=== PATIENT | female | born 1960 | race African-American/Black ===

== ENCOUNTER 2016-08-14 11:01 | Emergency (ER) | payer OTHER ==
[2016-08-14 11:10] VITALS: TEMP 99.1; BMI 38.0
--- NOTE | 2016-08-14 11:20 | PDOC ---
History of Present Illness - General Chief Complaint: Nausea/Vomiting Stated Complaint: VOMITING, COUGH Time Seen by Provider: 08/14/16 11:19 History Source: Patient Exam Limitations: No Limitations - History of Present Illness Initial Comments: 08/14/16 11:19 CHIEF COMPLAINT: Vomiting HISTORY OF PRESENT ILLNESS: This is a 55-year-old female with a history of hypertension, hyperlipidemia, cigarette smoking, and tonsillectomy who presents to the ED complaining of abdominal pain and nausea/vomiting/diarrhea. The patient was seen here on 08/08 for abdominal pain diarrhea and was empirically started on ciprofloxacin and Flagyl. She then returned on 08/09 with vomiting and continued diarrhea. CTAP at that time showed thickening of a short segment in the transverse colon as well as thickening of the proximal and mid sigmoid colon holcomb. Patient was continued on Cipro/Flagyl and referred to GI. She returns today with cough productive of white sputum, chills, and continued vomiting. She reports her abdominal pain has improved and her diarrhea has resolved. She saw her PCP yesterday and he was concerned for PNA. Vital signs on arrival are notable for pulse of 94. PCP is Dr. Bloom. REVIEW OF SYSTEMS: GENERAL/CONSTITUTIONAL: Chills, no fever. No weakness. No weight change. HEAD, EYES, EARS, NOSE AND THROAT: No change in vision. No ear pain or discharge. No sore throat. CARDIOVASCULAR: No chest pain or palpitations. RESPIRATORY: Cough productive of white sputum. No shortness of breath. GASTROINTESTINAL: Vomiting; unable to keep down water. No diarrhea or constipation. GENITOURINARY: No dysuria, frequency, or change in urination. MUSCULOSKELETAL: No joint or muscle swelling or pain. No neck or back pain. SKIN: No rash or easy bruising. NEUROLOGIC: No headache, vertigo, loss of consciousness, or loss of sensation. PSYCHIATRIC: No depression or anxiety. ENDOCRINE: No increased thirst. No abnormal weight change. HEMATOLOGIC/LYMPHATIC: No anemia, easy bleeding, or history of blood clots. ALLERGIC/IMMUNOLOGIC: History of clarithromycin allergy. PHYSICAL EXAM: GENERAL: The patient is awake, alert, and fully oriented, in no acute distress. ENT: Pupils equal, round and reactive to light, extraocular movements intact, sclera anicteric, conjunctiva clear. Neck supple. LUNGS: End-expiratory wheezing. Normal excursion. No respiratory distress or use of accessory muscles. Paroxysmal cough. CV: RRR, S1/S2, no MRG. Cap refill < 2 sec. ABDOMEN: Soft, non-distended, mild LLQ tenderness to deep palpation. EXTREMITIES: Normal range of motion, no edema. NEUROLOGICAL: Normal speech, normal gait. CN II-XII grossly intact. PSYCH: Normal mood, normal affect. SKIN: Warm, dry, normal turgor, no rashes or lesions noted. Past History - Past Medical History Allergies/Adverse Reactions: Allergies Allergy/AdvReac Type Severity Reaction Status Date / Time clarithromycin [From Biaxin] Allergy Verified 08/14/16 11:10 Home Medications: Ambulatory Orders Pravastatin Sodium [Pravachol -] 40 mg PO DAILY 07/12/15 Amlodipine Besylate [Norvasc -] 10 mg PO DAILY #30 tablet 10/16/15 Losartan/Hydrochlorothiazide [Hyzaar 100-25 Tablet] 1 each PO DAILY #30 tablet 10/16/15 Ciprofloxacin [Cipro (Restricted To Id)] 500 mg PO Q12H #14 tablet 08/08/16 Metronidazole [Flagyl -] 500 mg PO TID #21 tablet 08/08/16 Albuterol Sulfate Inhaler - [Ventolin HFA Inhaler -] 1 - 2 inh PO QID #1 inhaler 08/14/16 Promethazine/Phenyleph/Codeine [Phenergan VC+Codeine Syrup] 5 ml PO QID PRN # 118 ml MDD 20 mls 08/14/16 HTN: Yes Hypercholesterolemia: Yes - Psycho/Social/Smoking Cessation Hx Anxiety: Yes Suicidal Ideation: No Smoking History: Current every day smoker Have you smoked in the past 12 months: Yes Number of Cigarettes Smoked Daily: 10 Information on smoking cessation initiated: No 'Breaking Loose' booklet given: 07/12/15 Hx Alcohol Use: No Drug/Substance Use Hx: No Substance Use Type: None *Physical Exam - Vital Signs Last Vital Signs Temp Pulse Resp BP Pulse Ox 99.1 F 94 H 18 138/80 99 08/14/16 11:07 08/14/16 11:07 08/14/16 11:07 08/14/16 11:07 08/14/16 11:07 ED Treatment Course - LABORATORY CBC & Chemistry Diagram: 08/14/16 11:25 08/14/16 11:25 Medical Decision Making - Medical Decision Making 08/14/16 11:39 A/P: 55 year old female, on last day of abx for colitis, presenting with productive cough, chills, and wheezing, as well as vomiting with inability to tolerate oral fluids. 1. EKG 2. Cardiac labs 3. CXR to rule out infiltrate 4. DuoNeb for wheezing 5. Zofran 4mg IVP for nausea 6. IVF 7. Re-assess 08/14/16 14:00 Patient re-evaluated and is feeling much better. CXR negative for infiltrate. Coughing and wheezing have resolved after DuoNeb. Hypokalemia noted and repleted. Patient is tolerating PO. Will dc with albuterol MDI and cough syrup. Patient plans to follow up with her PCP. Return precautions reviewed. *DC/Admit/Observation/Transfer Diagnosis at time of Disposition: Cough Vomiting Qualifiers: Vomiting type: unspecified Vomiting Intractability: non-intractable Nausea presence: with nausea Qualified Code(s): R11.2 - Nausea with vomiting, unspecified - Discharge Dispostion Disposition: HOME Admit: No - Prescriptions Prescriptions: Promethazine/Phenyleph/Codeine [Phenergan VC+Codeine Syrup] 5 ml PO QID PRN # 118 ml MDD 20 mls PRN Reason: Cough Albuterol Sulfate Inhaler - [Ventolin HFA Inhaler -] 1 - 2 inh PO QID #1 inhaler - Referrals Referrals: Shannan Bloom [Primary Care Provider] - 2 Days - Patient Instructions Printed Discharge Instructions: DI for Vomiting -- Adult, DI for Cough -- Adult Additional Instructions: -Rest and stay well-hydrated -Use the albuterol inhaler and cough syrup as prescribed -Follow up with Dr. Bloom within 2 days -Return here for any concerning symptoms, especially shortness of breath or inability to keep down fluids
[2016-08-14] MEDS ORDERED: SODIUM CHLORIDE 1,000 ML IV STA (11:23)
[2016-08-14] MEDS ORDERED: ONDANSETRON 4 MG/2 ML VIAL IVPUSH ONE (11:23)
[2016-08-14] MEDS ORDERED: ALBUTEROL SO4 2.5/IPRATROPIUM 0.5 INH SOL 3 ML VIAL.NEB. NEB ONE ×2 (11:33→11:47)
[2016-08-14] MEDS ORDERED: ONDANSETRON 4 MG/2 ML VIAL ONE (11:38)
[2016-08-14 11:44] LABS: BASOPHIL 0.5 % (0-2.0); EOSINOPHIL 0.4 % (0-4.5); MCH 31.1 pg (25.7-33.7); MCHC 33.9 g/dl (32.0-36.0); MEAN CELL VOLUME 91.8 fl (80-96); MEAN PLT VOLUME 9.1 fl (7.5-11.1); NEUTROPHILS 64.2 % (42.8-82.8); PLATELET COUNT 187 K/MM3 (134-434); RDW 13.3 % (11.6-15.6); WHITE BLOOD COUNT 7.8 K/mm3 (4.0-10.0)
[2016-08-14 11:56] LABS: INR 1.3 (0.82-1.09); PROTHROMBIN TIME (PATIENT) 14.4 SEC (9.98-11.88)
[2016-08-14 12:05] LABS: ALBUMIN 3.8 g/dl (3.4-5.0); ANION GAP 10 (8-16); BILIRUBIN,TOTAL 0.8 mg/dL (0.2-1.0); CALCIUM 8.5 mg/dL (8.5-10.1); CO2 28 mmol/L (21-32); GLUCOSE,RANDOM 153 mg/dL (74-106); MAGNESIUM 1.8 mg/dL (1.8-2.4); SGOT/AST 26 U/L (15-37); SGPT/ALT 30 U/L (12-78); TOT PROT 7.4 g/dl (6.4-8.2)
[2016-08-14 12:08] LABS: ALK PHOS 37 U/L (45-117); TROPONIN I < 0.02 ng/ml (0.00-0.05)
[2016-08-14 12:27] LABS: URINE APPEARANCE CLEAR; URINE BILIRUBIN NEGATIVE (NEGATIVE); URINE BLOOD NEGATIVE (NEGATIVE); URINE COLOR DKYELLOW; URINE GLUCOSE (UA) NEGATIVE (NEGATIVE); URINE KETONE NEGATIVE (NEGATIVE); URINE NITRITE NEGATIVE (NEGATIVE); URINE PROTEIN NEGATIVE (NEGATIVE); URINE UROBILINOGEN NEGATIVE E.U./dl (0.2-1.0)
[2016-08-14 12:29] LABS: URINE LEUK ESTERASE 1+ (NEGATIVE)
[2016-08-14 12:31] LABS: URINE BACTERIA RARE /hpf (NONE SEEN); URINE HYALINE CAST 4 /lpf; URINE MUCUS RARE; URINE RBC 1 /hpf (0-3); URINE WBC 4 /hpf (3-5)
[2016-08-14] MEDS ORDERED: SODIUM CHLORIDE 1,000 ML with POTASSIUM CHLORIDE 40 MEQ IVPB SCH (13:45)
[2016-08-14] MEDS ORDERED: POTASSIUM CHLORIDE TABS 20 MEQ TABLET.ER (FP) PO ONE ×2 (13:57→13:59)
[2016-08-14] MEDS ORDERED: guaiFENesin/CODEINE 10 ML UNIT-DOSE CUPS PO ONE (14:12)
[2016-08-14 14:14] VITALS: BP 141/81; PULSE 90
[2016-08-14] MEDS ORDERED: guaiFENesin/CODEINE 5 ML UNIT-DOSE CUPS PO ONE (14:14)
--- NOTE | 2016-08-14 23:22 | EKG ---
Test Reason : Blood Pressure : / mmHG Vent. Rate : 084 BPM Atrial Rate : 084 BPM P-R Int : 128 ms QRS Dur : 088 ms QT Int : 366 ms P-R-T Axes : 070 032 027 degrees QTc Int : 432 ms NORMAL SINUS RHYTHM NORMAL ECG WHEN COMPARED WITH ECG OF 09-AUG-2016 23:14, NO SIGNIFICANT CHANGE WAS FOUND Confirmed by HARI DAI MD ([id number]) on 08/14/2016 11:21:40 PM Referred By: Confirmed By:HARI DAI MD
== END 2016-08-14 14:14 | disposition home or self-care (01) ==
LOC: JER 11:01
PROC: 3E0F7GC Introduction of Other Therapeutic Substance into Respiratory Tract, Via Natural or Artificial Opening (ICD-10-PCS; principal; 2016-08-14)
PROC: 3E0337Z Introduction of Electrolytic and Water Balance Substance into Peripheral Vein, Percutaneous Approach (ICD-10-PCS; 2016-08-14)
PROC: 3E033GC Introduction of Other Therapeutic Substance into Peripheral Vein, Percutaneous Approach (ICD-10-PCS; 2016-08-14)
DX: R05 Cough (principal); I10 Essential (primary) hypertension; E78.00 Pure hypercholesterolemia, unspecified; F17.210 Nicotine dependence, cigarettes, uncomplicated
CPT/HCPCS: 36415; 71020-TC; 80053; 81003; 81015; 82550; 82553; 83735; 84484; 85025; 85610; 87040; 93005; 93010; 99284-25

== ENCOUNTER 2017-06-11 14:27 | Emergency (ER) | payer OTHER ==
[2017-06-11 14:33] VITALS: TEMP 98.6; BMI 38.0
--- NOTE | 2017-06-11 14:47 | PDOC ---
Attending Attestation - HPI HPI: 06/11/17 15:50 The patient is a 56 year old female with past medical history of hypertension, hyperlipidemia, chronic bronchitis and asthma who presents to the ED after an episode of near syncope today. The patient denies any LOC, focal weakness, or headache. She reports that she has been feeling very dehydrated the past few days and has been drinking lots of water, and subsequently has been urinating more frequently. She also complains of productive cough and nasal congestion for the past week and has been coughing up white mucous. The patient denies any fever or chills. She denies nausea, vomiting, diarrhea, SOB, dysuria or hematuria. The patient is a smoker and smokes 10 cigarettes/day - Medical Decision Making 06/11/17 15:57 Documentation prepared by Vianney Vines, acting as medical doctor nuclear medicine for Evelyne Carvajal MD. <Vianney Vines - Last Filed: 06/11/17 16:55> - Resident Resident Name: Hoa Garibay - ED Attending Attestation I have performed the following: I have examined & evaluated the patient, The case was reviewed & discussed with the resident, I agree w/resident's findings & plan, Exceptions are as noted - Physicial Exam PE: GENERAL: Awake, alert, and fully oriented, in no acute distress HEAD: No signs of trauma EYES: PERRLA, EOMI, sclera anicteric, conjunctiva clear ENT: Auricles normal inspection, hearing grossly normal, nares patent, oropharynx clear without exudates. Dry mucosa NECK: Normal ROM, supple, no lymphadenopathy, JVD, or masses LUNGS: Breath sounds equal, clear to auscultation bilaterally. No wheezes, and no crackles HEART: Regular rate and rhythm, normal S1 and S2, no murmurs, rubs or gallops ABDOMEN: Soft, nontender, normoactive bowel sounds. No guarding, no rebound. No masses EXTREMITIES: Normal range of motion, no edema. No clubbing or cyanosis. No cords, erythema, or tenderness NEUROLOGICAL: Cranial nerves II through XII grossly intact. Normal speech, normal gait SKIN: Warm, Dry, normal turgor, no rashes or lesions noted. - Medical Decision Making Pt improved with Iv hydration. No acute findings on labs. Stable for DC home. <Evelyne Carvajal - Last Filed: 06/14/17 08:34>
--- NOTE | 2017-06-11 15:33 | PDOC ---
History of Present Illness - General Chief Complaint: Lightheaded Stated Complaint: COUGH/WEAK Time Seen by Provider: 06/11/17 14:40 History Source: Patient - History of Present Illness Initial Comments: 06/11/17 15:26 Patient is a 56 yo F smoker, with PMHx of Htn, HLD, asthma, bronchitis, presented today because of lightheadedness that started this morning and has been constant. She states she experienced the same feeling last year and was admitted because of low sodium. She also says that she has been feeling dehydrated and dry with an increase in urinary frequency that started around the same time as the lightheadedness. She urinated 5 times today. She takes HCTZ 25mg for her HTN and has not had a recent change in her BP meds. She said this week she has had bronchitis and has had a persistent cough with white sputum production. She denies fever, head trauma, vertigo, nausea, vomiting, SOB , chest pain, and diarrhea. Past History - Past Medical History Allergies/Adverse Reactions: Allergies Allergy/AdvReac Type Severity Reaction Status Date / Time clarithromycin [From Biaxin] Allergy Verified 06/11/17 14:33 Home Medications: Ambulatory Orders Pravastatin Sodium [Pravachol -] 40 mg PO DAILY 07/12/15 Amlodipine Besylate [Norvasc -] 10 mg PO DAILY #30 tablet 10/16/15 Losartan/Hydrochlorothiazide [Hyzaar 100-25 Tablet] 1 each PO DAILY #30 tablet 10/16/15 Albuterol Sulfate Inhaler - [Ventolin HFA Inhaler -] 1 - 2 inh PO QID #1 inhaler 08/14/16 Azithromycin [Zithromax Tri-Kavon (3 DAYS) -] 500 mg PO DAILY 06/11/17 Guaifenesin AC [Robitussin AC] 5 ml PO Q6H PRN #60 ml MDD 20 mL 06/11/17 COPD: No HTN: Yes Hypercholesterolemia: Yes - Suicide/Smoking/Psychosocial Hx Smoking History: Current every day smoker Have you smoked in the past 12 months: Yes Number of Cigarettes Smoked Daily: 10 Information on smoking cessation initiated: No 'Breaking Loose' booklet given: 07/12/15 Hx Alcohol Use: No Drug/Substance Use Hx: No Substance Use Type: None Review of Systems - Review of Systems Constitutional: Yes: Chills. No: Diaphoresis, Fever Respiratory: Yes: Productive cough. No: Orthopnea Cardiac (ROS): Yes: Lightheadedness. No: Chest Pain, Palpitations, Syncope ABD/GI: No: Diarrhea, Nausea, Vomiting : Yes: Frequency. No: Burning, Dysuria Neurological: Yes: Tremors, Weakness. No: Headache, Numbness, Seizure, Dizziness *Physical Exam - Vital Signs Last Vital Signs Temp Pulse Resp BP Pulse Ox 98.6 F 97 H 20 155/84 95 06/11/17 14:30 06/11/17 14:30 06/11/17 14:30 06/11/17 14:30 06/11/17 14:30 - Physical Exam Comments: 06/11/17 15:39 General: In no acute distress, coughing w/ white sputum production, slightly tremulous HEENT: EOMI, PERRL, oropharyanx clear without exudates, pale conjunctiva, dry mucous membranes Neck: supple CV: RRR, no murmurs appreciated, 2+ radial pulse Lungs: bibasilar expiratory wheezing Abd: normoactive bowel sounds, NT, ND Neuro: CN 2-12 intact, strength 4/5 throughout, sensory intact throughout ED Treatment Course - LABORATORY CBC & Chemistry Diagram: 06/11/17 15:25 06/11/17 15:25 - RADIOLOGY Radiology Studies Ordered: Category Date Time Status CHEST X-RAY PORTABLE* [RAD] Stat Radiology 06/11/17 15:16 Ordered Medical Decision Making - Medical Decision Making 06/11/17 15:47 Patient is a 56 yo F smoker, with PMHx of HTN, asthma, bronchitis, presents today because of lightheadedness that started this morning with increased urinary frequency. CBC, CMP CXR Cardiac Trops U/A 06/11/17 16:32 1 Liter Bolus Normal Saline IV 06/11/17 17:33 CBC, CMP WNL Cardiac trops WNL U/A WNL Patient's symptoms improved. Dizziness Resolved Clinically cleared for discharge. *DC/Admit/Observation/Transfer Diagnosis at time of Disposition: Lightheaded - Prescriptions Prescriptions: Guaifenesin AC [Robitussin AC] 5 ml PO Q6H PRN #60 ml MDD 20 mL PRN Reason: Cough - Referrals Referrals: Shannan Bloom [Primary Care Provider] - Call tomorrow - Patient Instructions Printed Discharge Instructions: DI for Dehydration -- Adult Additional Instructions: Please call your doctor tomorrow and make an appointment. You were treated for dehydration in the emergency room. You may need adjustment to your high blood pressure medications. - Post Discharge Activity
[2017-06-11 15:35] LABS: MCH 30.6 pg (25.7-33.7); MCHC 33.8 g/dl (32.0-36.0); MEAN CELL VOLUME 90.7 fl (80-96); MEAN PLT VOLUME 8.8 fl (7.5-11.1); PLATELET COUNT 206 K/MM3 (134-434); RDW 13.6 % (11.6-15.6); WHITE BLOOD COUNT 7.6 K/mm3 (4.0-10.0)
[2017-06-11 15:42] LABS: URINE APPEARANCE CLEAR; URINE BILIRUBIN NEGATIVE (NEGATIVE); URINE BLOOD NEGATIVE (NEGATIVE); URINE COLOR STRAW; URINE GLUCOSE (UA) NEGATIVE (NEGATIVE); URINE KETONE NEGATIVE (NEGATIVE); URINE NITRITE NEGATIVE (NEGATIVE); URINE PROTEIN NEGATIVE (NEGATIVE); URINE UROBILINOGEN NEGATIVE mg/dL (0.2-1.0)
[2017-06-11 15:56] LABS: ALBUMIN 3.7 g/dl (3.4-5.0); ALK PHOS 43 U/L (45-117); ANION GAP 7 (8-16); BILIRUBIN,TOTAL 0.8 mg/dL (0.2-1.0); CALCIUM 9.6 mg/dL (8.5-10.1); CO2 31 mmol/L (21-32); CREATININE 0.9 mg/dL (0.55-1.02); GLUCOSE,RANDOM 117 mg/dL (74-106); SGOT/AST 13 U/L (15-37); SGPT/ALT 23 U/L (12-78); TOT PROT 7.8 g/dl (6.4-8.2)
[2017-06-11 15:59] LABS: CPK 55 IU/L (26-192); TROPONIN I < 0.02 ng/ml (0.00-0.05)
[2017-06-11] MEDS ORDERED: SODIUM CHLORIDE 1,000 ML IV STA (16:24)
[2017-06-11 17:43] VITALS: BP 155/67; PULSE 68
[2017-06-11 18:40] LABS: URINE LEUK ESTERASE Negative (NEGATIVE)
== END 2017-06-11 17:43 | disposition home or self-care (01) ==
LOC: JER 14:27
PROC: 3E0337Z Introduction of Electrolytic and Water Balance Substance into Peripheral Vein, Percutaneous Approach (ICD-10-PCS; principal; 2017-06-11)
DX: R42 Dizziness and giddiness (principal); I10 Essential (primary) hypertension; E78.00 Pure hypercholesterolemia, unspecified; J42 Unspecified chronic bronchitis; F17.210 Nicotine dependence, cigarettes, uncomplicated
CPT/HCPCS: 36415; 71010-TC; 80053; 81003; 82550; 84484; 85027; 99284-25

== ENCOUNTER 2018-04-26 16:19 | Inpatient (IN) | payer OTHER ==
--- NOTE | 2018-04-26 16:26 | PDOC ---
Rapid Medical Evaluation Chief Complaint: Shortness of Breath Time Seen by Provider: 04/26/18 16:23 Medical Evaluation: Allergies Allergy/AdvReac Type Severity Reaction Status Date / Time clarithromycin [From Biaxin] Allergy Verified 03/22/18 18:56 04/26/18 16:23 CC: SOB and diarrhea HPI: Pt is a 57 YO female who states that over the past 24 hours she has had a cough and now she is complaining of SOB. 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 I have performed a brief in- person evaluation of this patient. Pertinent Physical Findings: Skin: Clear Lungs: Mild wheezing Heart: RRR Abdomen: no pain upon palpation; no CVAT Neuro: Alert Psych: Appropriate affect I have ordered: Respiratory protocol The patient will proceed to: Main ED Discharge Disposition - Diagnosis Dyspnea Qualifiers: Dyspnea type: shortness of breath Qualified Code(s): R06.02 - Shortness of breath; R06.00 - Dyspnea, unspecified; R06.01 - Orthopnea - Referrals - Patient Instructions - Post Discharge Activity
[2018-04-26 16:34] VITALS: BMI 36.0
--- NOTE | 2018-04-26 17:16 | PDOC ---
Attending Attestation - HPI HPI: 04/26/18 18:06 The patient is a 57 year old female with a significant past medical history of HTN, HLD, and asthma who presents to the ED with complaints of chest pain and nausea since earlier today. Patient reports an acute onset of left sided chest pain at 2:00 pm earlier today. Patient states her chest pain lasted for 30 minutes before resolving. She also reports one episode of diarrhea, 2 episodes of urinary incontinence, and one episode of vomiting and nausea. Patient states she is still nauseous which is not normal for her. Denies fever or chills. Denies any other symptoms. Documentation prepared by Tl Galvin, acting as medical radiation dosimetrist for Juanita Garrido DO - Physicial Exam PE: 04/26/18 18:07 Constitutional: Awake, alert, oriented. No acute distress. Head: Normocephalic. Atraumatic Eyes: PERRL. EOMI. Conjunctivae are not pale. ENT: + slight fogginess of fortune, mild post nasal drip. Dry mucous membranes. Posterior pharynx without exudates or erythema. Uvula midline. Neck: Supple. Full ROM. No lymphadenopathy. Cardiovascular: Regular rate. Regular rhythm. S1, S2 regular. Distal pulses are 2+ and symmetric. Pulmonary/Chest: + diffusely wheezing, no rales or rhonchi. Abdominal: Soft and non-distended. There is no tenderness. No rebound, guarding or rigidity. No organomegaly. No palpable masses. Good bowel sounds. Back: No CVA tenderness. Musculoskeletal: No edema. No cyanosis. No clubbing. Full range of motion in all extremities. Nocalf tenderness. Radial/pedal pulses are intact and 2+ bilaterally Skin: Skin is warm and dry. No petechiae. No purpura. Neurological: Alert and oriented to person, place, and time. Cranial nerves II -XII are grossly intact. Normal speech. Strength is grossly symmetric. No sensory deficits. Psychiatric: Good eye contact. Normal interaction, affect and behavior. <Tl Galvin - Last Filed: 04/26/18 18:06> - Resident Resident Name: Omid Jordan - ED Attending Attestation I have performed the following: I have examined & evaluated the patient, The case was reviewed & discussed with the resident, I agree w/resident's findings & plan, Exceptions are as noted - Medical Decision Making 04/26/18 17:15 I, Dr. Juanita Garrido, DO, attest that this document has been prepared under my direction and personally reviewed by me in its entirety. I further attest, that it accurately reflects all work, treatment, procedures and medical decision -making performed by me. 04/26/18 18:47 a/p: 57yo female with hx of asthma with chest tightness and pressure -cough productive white sputum, sob, wheezing -ran out of her inhaler earlier today so she couldnt' give herself a tx -n/v/d today -urinary freq today -no abd pain -cp and sob -rhinorrhea/sore throat -suspect viral syndrome exacerbating asthma, however chest pressure and risk factors for acs -will send labs, nebs, cxr, ekg, monitor -n/v/d and had ruq pain earlier - will obtain ultrasound -will monitor and reassess 04/26/18 20:04 pt with negative trop will place in obs 04/26/18 21:52 pt with asthma exacerbation pt with cp will place in obs pending further eval resident discussed the case with saige who accepts pt to service <Juanita Garrido - Last Filed: 04/26/18 21:52> Heart Score/ECG Review - ECG Intrepretation Comment:: 04/26/18 18:53 sinus at 90, nl axis, nl interval, no acute st/t wave findings, t wave flattening diffusely <Juanita Garrido - Last Filed: 04/26/18 21:52>
[2018-04-26] MEDS ORDERED: ALBUTEROL SO4 2.5/IPRATROPIUM 0.5 INH SOL 3 ML VIAL.NEB. NEB ONE ×4 (17:17→18:13)
[2018-04-26 17:23] LABS: HEMATOCRIT 45.3 % (32.4-45.2); HEMOGLOBIN 14.9 GM/dL (10.7-15.3); MCH 30.4 pg (25.7-33.7); MCHC 32.9 g/dl (32.0-36.0); MEAN CELL VOLUME 92.5 fl (80-96); MEAN PLT VOLUME 8.7 fl (7.5-11.1); PLATELET COUNT 193 K/MM3 (134-434); RBC 4.89 M/mm3 (3.60-5.2); WHITE BLOOD COUNT 7.7 K/mm3 (4.0-10.0)
[2018-04-26] MEDS ORDERED: ONDANSETRON 4 MG/2 ML VIAL IVPB ONE ×2 (17:35→17:36)
[2018-04-26] MEDS ORDERED: SODIUM CHLORIDE 500 ML IV STA (17:35)
--- NOTE | 2018-04-26 17:46 | PDOC ---
History of Present Illness - General Chief Complaint: Shortness of Breath Stated Complaint: CHEST PAIN Time Seen by Provider: 04/26/18 16:23 - History of Present Illness Initial Comments: 04/26/18 17:37 57 yo F with h/o HTN, HLD, and asthma who p/w chest pain. Patient reports acute onset of left sided retrosternal chest pressure at rest beginning at 0200 PM today, with spontaneous resolution, after 30 minutes. Reports recurrence of chest pain a 0400 PM, and has been unremitting. Also endorses SOB at rest, and [place] beginning at 0300 PM. Endorses wheezing and cough beginning yesterday evening. Albuterol treatment x 2, with slight improvement in symptoms. + Nausea with one episode of non bloody, non bilious emesis in ED. Patient denies N/V, Palpitations, Orthopnea, PND, F/C, hemoptysis, urinary complaints, constipation, lightheadedness, weakness, sensory changes. PMHx: as noted above. Denies h/o ACS/AR, stent placement, CABG, abnml stress testing. No h/o PE/DVT. Denies h/o endoscopy, chronic NSAID use. H/o colonoscopy with polyp removal x 2. ROS: as noted SHx: Tobacco use 1/2 ppd x 8 years. Denies Etoh, IVDA Allergies: NKDA PMD: Dr. Arlene Jain Past History - Past Medical History Allergies/Adverse Reactions: Allergies Allergy/AdvReac Type Severity Reaction Status Date / Time clarithromycin [From Biaxin] Allergy Verified 03/22/18 18:56 Home Medications: Ambulatory Orders Pravastatin Sodium [Pravachol -] 40 mg PO DAILY 07/12/15 Amlodipine Besylate [Norvasc -] 10 mg PO DAILY #30 tablet 10/16/15 Losartan/Hydrochlorothiazide [Hyzaar 100-25 Tablet] 1 each PO DAILY #30 tablet 10/16/15 Carvedilol 12.5 mg PO DAILY 01/19/18 Albuterol 0.083% Nebulizer Nuris [Ventolin 0.083% Nebulizer Soln -] 1 neb NEB Q4H #30 vial 03/22/18 Aspirin 81 mg PO DAILY 04/26/18 COPD: No CHF: No HTN: Yes Hypercholesterolemia: Yes - Immunization History Immunization Up to Date: Yes - Suicide/Smoking/Psychosocial Hx Smoking History: Current every day smoker Have you smoked in the past 12 months: Yes Number of Cigarettes Smoked Daily: 8 Information on smoking cessation initiated: No 'Breaking Loose' booklet given: 07/12/15 Hx Alcohol Use: No Drug/Substance Use Hx: No Substance Use Type: None Review of Systems - Review of Systems Comments:: 04/26/18 19:31 GENERAL/CONSTITUTIONAL: No fever or chills. No weakness. HEAD, EYES, EARS, NOSE AND THROAT: No change in vision. No ear pain or discharge. No sore throat. CARDIOVASCULAR: + chest pain and shortness of breath RESPIRATORY: + Wheezing and cough. No hemoptysis. GASTROINTESTINAL: No nausea, vomiting, diarrhea or constipation. GENITOURINARY: No dysuria, frequency, or change in urination. MUSCULOSKELETAL: No joint or muscle swelling or pain. No neck or back pain. SKIN: No rash NEUROLOGIC: No headache, vertigo, loss of consciousness, or change in strength/ sensation. ENDOCRINE: No increased thirst. No abnormal weight change HEMATOLOGIC/LYMPHATIC: No anemia, easy bleeding, or history of blood clots. ALLERGIC/IMMUNOLOGIC: No hives or skin allergy. *Physical Exam - Vital Signs Last Vital Signs Temp Pulse Resp BP Pulse Ox 98.3 F 97 H 16 164/85 95 04/26/18 16:29 04/26/18 16:29 04/26/18 16:29 04/26/18 16:29 04/26/18 16:29 - Physical Exam Comments: 04/26/18 18:01 GENERAL: Awake, alert, and fully oriented, in no acute distress HEAD: No signs of trauma, normocephalic, atraumatic EYES: PERRLA, EOMI, sclera anicteric, conjunctiva clear ENT: Hearing grossly normal, nares patent, oropharynx clear without exudates. Moist mucosa NECK: Normal ROM, supple, no lymphadenopathy, JVD, or masses LUNGS: + Diffuse expiratory wheezing. No distress, speaks full sentences. Absent rales. HEART: Regular rate and rhythm, normal S1 and S2, no murmurs, rubs or gallops, peripheral pulses normal and equal bilaterally. ABDOMEN: + RUQ, and epigastirc ttp. Soft, NDS, normoactive bowel sounds. No guarding, no rebound, nor rigidity. No masses. Neg CVA ttp. EXTREMITIES : Normal inspection, Normal range of motion, no edema. No clubbing or cyanosis. SKIN: Warm, Dry, normal turgor, no rashes or lesions noted Heart Score/ECG Review - History History: Slightly suspicious - Electrocardiogram EKG: Non specific repolarization disturbance - Age Age: 45-65 - Risk Factors Risk Factors Heart Score: Yes Hx Hypercholesterolemia, Yes Hx Hypertension, Yes Hx Diabetes, Yes Smoking History, Yes Positive family hx of cardiac disease, Yes Hx Obesity Based on the list above the patient has:: >/=3 risk factors or Hx atherosclerotic disease - Troponin Troponin: </= normal limit - Score Heart Score - Total: 4 ED Treatment Course - LABORATORY CBC & Chemistry Diagram: 04/26/18 17:05 04/26/18 17:05 - ADDITIONAL ORDERS Additional order review: 04/26/18 17:05 RBC 4.89 MCV 92.5 MCHC 32.9 RDW 14.0 MPV 8.7 - RADIOLOGY Radiology Studies Ordered: Category Date Time Status ABDOMEN US -LIMITED [US] Stat Ultrasound 04/26/18 17:35 Ordered Medical Decision Making - Medical Decision Making 04/26/18 17:54 57 yo F with h/o HTN, HLD, and asthma who p/w unremitting, left sided retrosternal chest pain/pressure at rest, and SOB x 3 hours AUTHORIZATION SPECIALIST. VSS, AF. + Diffuse expiratory wheezing. ACS/AR r/o. Likely acute asthma exacerbation vs. COPD. + RUQ ttp. Will also consider biliary dz., gastritis. No evidence of volume/fluid overload. Low suspicion CHF, PNA, Ao dissection. PERC + PE based on age, low risk PE Weils Criteria. PMD. Dr. JAIN (Admits to hospitalist) ED Course: CBC, CMP, Cardiac Pr. UA EKG, CXR Duoneb, Magnesium 1, Ranitidine, Zofran 04/26/18 19:17 CBC, CMP: Unremarkable Trop: Neg 04/26/18 19:18 CXR: No acute change 04/26/18 19:19 EKG: NSR with absent KAY, STD, Q waves. Normal interval duration and axis. Heart Score 4 04/26/18 21:10 Patient admitted to tele/obs *DC/Admit/Observation/Transfer Diagnosis at time of Disposition: Chest pain at rest Dyspnea Qualifiers: Dyspnea type: shortness of breath Qualified Code(s): R06.02 - Shortness of breath - Discharge Dispostion Decision to Admit order: Yes - Referrals Referrals: Shannan Jain [Primary Care Provider] - - Patient Instructions - Post Discharge Activity
[2018-04-26] MEDS ORDERED: ASPIRIN 325 MG TABLET PO ONE (17:50)
[2018-04-26] MEDS ORDERED: SODIUM CHLORIDE 0.9% 1000 ML INFUS.BAG IV ONE (17:55)
[2018-04-26] MEDS ORDERED: methylPREDNISolone NA SUCC 125 MG/2 ML VIAL IVPB ONE (17:55)
[2018-04-26] MEDS ORDERED: MAGNESIUM SULF 50% (8.12 MEQ/2 ML-1 GM VIAL) IVPB ONE (17:56)
[2018-04-26 18:02] LABS: ALBUMIN 3.7 g/dl (3.4-5.0); ALK PHOS 44 U/L (45-117); ANION GAP 6 MMOL/L (8-16); BILIRUBIN,TOTAL 0.7 mg/dL (0.2-1); BLOOD UREA NITROGEN 8 mg/dL (7-18); CALCIUM 9.5 mg/dL (8.5-10.1); CHLORIDE 108 mmol/L (98-107); CO2 26 mmol/L (21-32); CREATININE 0.6 mg/dL (0.55-1.3); GLUCOSE,RANDOM 110 mg/dL (74-106); POTASSIUM 3.4 mmol/L (3.5-5.1); SGOT/AST 23 U/L (15-37); SGPT/ALT 26 U/L (13-61); SODIUM 140 mmol/L (136-145); TOT PROT 8.1 g/dl (6.4-8.2)
[2018-04-26] MEDS ORDERED: ASPIRIN 325 MG TABLET ONE (18:12)
[2018-04-26] MEDS ORDERED: MAGNESIUM 1GM/D5W - 1 GM/100 ML IVPB IVPB ONE (18:13)
[2018-04-26] MEDS ORDERED: ONDANSETRON 4 MG/2 ML VIAL ONE (18:13)
[2018-04-26] MEDS ORDERED: methylPREDNISolone NA SUCC 125 MG/2 ML VIAL ONE ×2 (18:13)
--- NOTE | 2018-04-26 20:05 | PN ---
Teaching Attending Note Name of Resident: Leandra Spence ATTENDING PHYSICIAN STATEMENT I saw and evaluated the patient. I reviewed the resident's note and discussed the case with the resident. I agree with the resident's findings and plan as documented. SUBJECTIVE: Patient is a 57 year old woman with history of HTN, HLD, tobacco use and asthma who presents with chest pain. Patient reports acute onset of left sided retrosternal chest pressure at rest beginning at 0200 PM today, with spontaneous resolution after 30 minutes. Reports recurrence of chest pain a 0400 PM, and has been unremitting. Also had SOB at rest, and STEARNS beginning at 0300 PM as well as wheezing and cough beginning yesterday evening. Albuterol treatment x 2, with slight improvement in symptoms. Had nausea with one episode of non bloody, non bilious emesis in the ER. Has had sick contacts at the [employer] where she works. OBJECTIVE: Alert Vital Signs Period Temp Pulse Resp BP Sys/Faulkner Pulse Ox Last 24 Hr 98.3 F 97 16 164/85 95 HEENT: No Jaundice, eye redness or discharge, PERRLA, EOMI. Normocephalic, atraumatic. External ears are normal and hearing is grossly intact. No nasal discharge. Neck: Supple, nontender. No palpable adenopathy or thyromegaly. No JVD Chest: Good effort. Inspiratory wheezing. Heart: Regular. No S3, rub or murmur Abdomen: Not distended, soft, nontender and no HSM. No rebound or guarding. Normoactive bowel sounds. Ext: Peripheral pulses intact. No leg edema. Skin: Warm and dry. No petechiae, rash or ecchymosis. Neuro: Alert. Oriented x3. CN 2-12 grossly intact. Sensation grossly intact in all four extremities and DTR are symmetric. Home Medications Medication Instructions Recorded Pravastatin Sodium [Pravachol -] 40 mg PO DAILY 07/12/15 Amlodipine Besylate [Norvasc -] 10 mg PO DAILY #30 tablet 10/16/15 Losartan/Hydrochlorothiazide 1 each PO DAILY #30 tablet 10/16/15 [Hyzaar 100-25 Tablet] Carvedilol 12.5 mg PO DAILY 01/19/18 Albuterol 0.083% Nebulizer Nuris 1 neb NEB Q4H #30 vial 03/22/18 [Ventolin 0.083% Nebulizer Soln -] Aspirin 81 mg PO DAILY 04/26/18 Abnormal Lab Results 04/26/18 04/26/18 17:05 17:05 Hct 45.3 H Potassium 3.4 L Chloride 108 H Anion Gap 6 L Random Glucose 110 H Alkaline Phosphatase 44 L ASSESSMENT AND PLAN: 1. Chest pain - Pain is atypical. No acute pathology on CXR and EKG shows nonspecific ST-T wave changes. Will admit to telemetry to rule out ACS. Findings consistent with viral syndrome that precipitated acute bronchospasm. Excessive coughing likely led to stool incontinence and RUQ discomfort. Treat with IV 1/2 NS, zofran, duoneb, spiriva, symbicort and solumedrol 40 mg IV q 8 hours. Hypokalemia is multifactorial - check Mg+ and give IV KCL. Restart her home medications to address uncontrolled hypertension. Give clear liquid diet for now. 2. Tobacco Use We will provide patient all the necessary assistance to facilitate smoking cessation and prescribe Nicotine patch. 3. Obesity - Will provide patient all the necessary assistance, counseling and positive reinforcement to facilitate weight loss. Consult brainer. 4. DVT prophylaxis - Lovenox 40 mg SQ q 24 hours. 5. Advance directives - Full code
--- NOTE | 2018-04-26 21:39 | HP ---
CHIEF COMPLAINT: sob, cough, chest pain, vomiting, diarrhea PCP: Dr. Bloom HISTORY OF PRESENT ILLNESS: 57F w/ pmhx of HTN, HLD, asthma, GERD presented to the ED with complaints of sob , cough, chest pain, diarrhea since yesterday. She states that last night she woke up at 2am w/ severe cough after which she did a nebulizer treatment. She woke up a second time at around 7:30am and did another nebulizer treatment. She proceeded to go to work that day, but around 3pm when she left work to go to her car, she started having coughing spells again after which she took her inhaler. During this episode, she reports that she also had a vomiting episode- nonbloody and white-, as well as bowel and urinary incontinence. She states that she hasn't had this bowel and urinary incontinence before. She admits to fever/chills, nausea, diaphoresis during the coughing episode, mild R-sided headache, generalized weakness, and epigastric pain. During this time she also admitted to 01/30 non-radiating, intermittent chest pain localized to the left sternal border that she has never had before. She did not take anything for this pain. During the exam, she reports that pain had since resolved. ER course was notable for: (1) BP 164/85, K+ 3.4, CXR showed prominent mediastinum, slight increased central markings, no infiltrate; Abd U/S showed no changes since 08/10/16 (2) Solumedrol, Duonebs, Symbicort, Mag sulf, Zofran, IVf given (3) Recent Travel: Denies PAST MEDICAL HISTORY: HTN HLD Asthma GERD PAST SURGICAL HISTORY: Denies Social History: Smokin cigs/day since teenage years Alcohol: Denies Drugs: Denies Family: Has 1 daughter, 1 son Lives home alone in an apartment Family History: Mother: DM, HTN Father: Asthma Allergies clarithromycin [From Biaxin] Allergy (Verified 03/22/18 18:56) HOME MEDICATIONS: Home Medications Medication Instructions Recorded Pravastatin Sodium [Pravachol -] 40 mg PO DAILY 07/12/15 Amlodipine Besylate [Norvasc -] 10 mg PO DAILY #30 tablet 10/16/15 Losartan/Hydrochlorothiazide 1 each PO DAILY #30 tablet 10/16/15 [Hyzaar 100-25 Tablet] Carvedilol 12.5 mg PO DAILY 01/19/18 Albuterol 0.083% Nebulizer Nuris 1 neb NEB Q4H #30 vial 03/22/18 [Ventolin 0.083% Nebulizer Soln -] Aspirin 81 mg PO DAILY 04/26/18 REVIEW OF SYSTEMS CONSTITUTIONAL: fever, chills, diaphoresis, generalized weakness, malaise, loss of appetite Absent: weight changes HEENT: Absent: rhinorrhea, nasal congestion, throat pain, throat swelling, difficulty swallowing, mouth swelling, ear pain, eye pain, visual changes CARDIOVASCULAR: chest pain Absent: syncope, palpitations, irregular heart rate, lightheadedness, peripheral edema RESPIRATORY: cough, shortness of breath, wheezing Absent: dyspnea with exertion, orthopnea, stridor, hemoptysis GASTROINTESTINAL: abdominal pain, nausea, vomiting, diarrhea Absent: abdominal distension, , constipation, melena, hematochezia GENITOURINARY: Absent: dysuria, frequency, urgency, hesitancy, hematuria, flank pain, genital pain MUSCULOSKELETAL: Absent: myalgia, arthralgia, joint swelling, back pain, neck pain SKIN: Absent: rash, itching, pallor HEMATOLOGIC/IMMUNOLOGIC: Absent: easy bleeding, easy bruising, lymphadenopathy, frequent infections ENDOCRINE: Absent: unexplained weight gain, unexplained weight loss, heat intolerance, cold intolerance NEUROLOGIC: bladder and bowel incontinence Absent: headache, focal weakness or paresthesias, dizziness, unsteady gait, seizure, mental status changes PHYSICAL EXAMINATION Vital Signs - 24 hr 04/26/18 16:29 Temperature 98.3 F Pulse Rate 97 H Respiratory 16 Rate Blood Pressure 164/85 O2 Sat by Pulse 95 Oximetry (%) GENERAL: AAOx3. NAD. Resting comfortably. HEENT: AT/NC. EOMI. [place]. Moist mucus membranes. NECK: Supple, no LAD/JVD. LUNGS: Diffuse inspiratory wheezes anteriorly. Decreased breath sounds posteriorly. Symmetric chest rise. No accessory muscle use. HEART: RRR. Normal S1, S2. No murmurs noted. ABDOMEN: Soft, ND. Mild tenderness to palpation RUQ. +BS in all 4 Q's. No masses or bruits noted. MUSCULOSKELETAL: No pedal edema. 5/5 muscle strength in b/l u/l extremities. NEUROLOGICAL: Normal speech. CN II-XII intact. PSYCHIATRIC: Cooperative. Good eye contact. Appropriate mood and affect. SKIN: Warm, dry, normal turgor, normal capillary refill. Laboratory Results - last 24 hr 04/26/18 04/26/18 17:05 17:05 WBC 7.7 RBC 4.89 Hgb 14.9 Hct 45.3 H MCV 92.5 MCH 30.4 MCHC 32.9 RDW 14.0 Plt Count 193 MPV 8.7 Sodium 140 Potassium 3.4 L Chloride 108 H Carbon Dioxide 26 Anion Gap 6 L BUN 8 Creatinine 0.6 Creat Clearance w eGFR > 60 Random Glucose 110 H Calcium 9.5 Total Bilirubin 0.7 AST 23 ALT 26 Alkaline Phosphatase 44 L Creatine Kinase 110 Troponin I < 0.02 Total Protein 8.1 Albumin 3.7 ASSESSMENT/PLAN: 57F w/ pmhx of HTN, HLD, asthma, GERD who presents w/ multiple GI symptoms admitted for viral illness. #nausea/vomiting/diarrhea 2/2 likely viral syndrome vs. bacterial -Start w/ CLD then advance as tolerated -Zofran for nausea -fluids hydration -stool studies #chest pain, likely musculoskeletal, r/o ACS; Pt's chest pain began during severe coughing episode, but has subsided since coming to the hospital. -repeat trops and EKG -Trops neg x1, EKG showed no significant ischemic changes. -Mag/Phos ordered #hypokalemia -check Mag, replete K as needed #asthma -Dunoebs 1 amp QD -Solumedrol 40 mg PO Q8H -Spiriva 2 puff IH QD -Symbicort 2 puff IH QD #HTN; Pt elevated at 164/85. Pt states she is compliant w/ BP meds. -resume home med Losartan 100 mg PO QD -resume home med Norvasc 10 mg PO QD -resume home med Carvedilol 12.5 mg PO BID #HLD -cont home med Pravastatin 40 mg PO QD #DVT ppx -Lovenox 40 mg SQ QD #FEN -NS @ 83 -recheck lytes in AM -CLD for now, adv as tolerated dispo -admit to tele obs Visit type - Emergency Visit Emergency Visit: Yes ED Registration Date: 04/26/18 Care time: The patient presented to the Emergency Department on the above date and was hospitalized for further evaluation of their emergent condition. - New Patient This patient is new to me today: Yes Date on this admission: 04/28/18 - Critical Care Critical Care patient: No
[2018-04-26] MEDS ORDERED: ONDANSETRON 4 MG/2 ML VIAL IVPUSH PRN (21:40)
[2018-04-26] MEDS ORDERED: SODIUM CHLORIDE 0.45% 1,000 ML IV SCH (21:45)
[2018-04-26 21:53] LABS: URINE APPEARANCE CLEAR; URINE BILIRUBIN NEGATIVE (<2.0 mg/dL); URINE COLOR STRAW; URINE GLUCOSE (UA) NEGATIVE (NEGATIVE); URINE KETONE TRACE (NEGATIVE); URINE LEUK ESTERASE NEGATIVE (NEGATIVE); URINE NITRITE NEGATIVE (NEGATIVE); URINE PROTEIN NEGATIVE (NEGATIVE); URINE UROBILINOGEN NEGATIVE mg/dL (0.2-1.0)
[2018-04-26] MEDS ORDERED: ALBUTEROL SO4 2.5/IPRATROPIUM 0.5 INH SOL 3 ML VIAL.NEB. NEB PRN (22:12)
[2018-04-26] MEDS ORDERED: BUDESONIDE/FORMETEROL FUMARATE 80/4.5 mcg INHALER IH ONE (22:15)
[2018-04-26] MEDS: methylPREDNISolone NA SUCC 125 MG/2 ML VIAL IVPB SCH (22:22)
[2018-04-26] MEDS ORDERED: ENOXAPARIN NA (PORCINE) 40 MG/0.4 ML DISP.SYRIN SQ ONE (22:24)
[2018-04-26] MEDS: ENOXAPARIN NA (PORCINE) 40 MG/0.4 ML DISP.SYRIN SQ SCH (22:28)
[2018-04-27] MEDS ORDERED: amLODIPine BESYLATE 5 MG TABLET (FP) PO ONE (00:07)
[2018-04-27] MEDS ORDERED: amLODIPine BESYLATE 5 MG TABLET (FP) ONE (00:10)
[2018-04-27] MEDS: CARVEDILOL 12.5 MG TABLET (FP) PO SCH ×3 (00:15→22:52)
[2018-04-27] MEDS ORDERED: ALBUTEROL SO4 2.5/IPRATROPIUM 0.5 INH SOL 3 ML VIAL.NEB. NEB ONE (00:16)
[2018-04-27] MEDS ORDERED: methylPREDNISolone NA SUCC 40 MG/1 ML VIAL ONE (02:08)
[2018-04-27] MEDS: methylPREDNISolone NA SUCC 125 MG/2 ML VIAL IVPB SCH (02:17)
[2018-04-27] MEDS: ALBUTEROL SO4 2.5/IPRATROPIUM 0.5 INH SOL 3 ML VIAL.NEB. NEB PRN (06:22)
[2018-04-27 07:14] LABS: HEMATOCRIT 44.4 % (32.4-45.2); HEMOGLOBIN 14.7 GM/dL (10.7-15.3); LYMPH % 17.1 % (8-40); MCH 30.8 pg (25.7-33.7); MCHC 33.2 g/dl (32.0-36.0); MEAN CELL VOLUME 92.9 fl (80-96); MEAN PLT VOLUME 8.6 fl (7.5-11.1); MONO % 1.6 % (3.8-10.2); NEUT % 81.3 % (42.8-82.8); PLATELET COUNT 179 K/MM3 (134-434); RBC 4.78 M/mm3 (3.60-5.2); RDW 13.6 % (11.6-15.6); WHITE BLOOD COUNT 6.5 K/mm3 (4.0-10.0)
[2018-04-27 07:41] LABS: ALBUMIN 3.5 g/dl (3.4-5.0); ALK PHOS 43 U/L (45-117); ANION GAP 7 MMOL/L (8-16); BILIRUBIN,TOTAL 0.6 mg/dL (0.2-1); BLOOD UREA NITROGEN 11 mg/dL (7-18); CALCIUM 8.8 mg/dL (8.5-10.1); CHLORIDE 108 mmol/L (98-107); CO2 27 mmol/L (21-32); CREATININE 0.8 mg/dL (0.55-1.3); GLUCOSE,RANDOM 102 mg/dL (74-106); MAGNESIUM 2.3 mg/dL (1.8-2.4); PHOSPHOROUS 3.3 mg/dL (2.5-4.9); POTASSIUM 3.6 mmol/L (3.5-5.1); SGOT/AST 17 U/L (15-37); SGPT/ALT 25 U/L (13-61); SODIUM 143 mmol/L (136-145); TOT PROT 7.8 g/dl (6.4-8.2)
[2018-04-27] MEDS ORDERED: TIOTROPIUM BROMIDE 2.5 MCG (SPIRIVA) RESPIMAT INHALER IH SCH (10:00)
[2018-04-27] MEDS ORDERED: methylPREDNISolone NA SUCC 125 MG/2 ML VIAL IVPB SCH (10:00)
[2018-04-27] MEDS ORDERED: FLUTICASONE/SALMETEROL 100 MCG/50 MCG DISKUS IH SCH (10:00)
[2018-04-27] MEDS ORDERED: methylPREDNISolone NA SUCC 1000 MG/8 ML VIAL IVPB ONE (10:00)
[2018-04-27] MEDS: LOSARTAN POTASSIUM 50 MG TABLET (FP) PO SCH (10:04)
[2018-04-27] MEDS: ASPIRIN 81 MG CHEWABLE TABLETS PO SCH (10:04)
[2018-04-27] MEDS: amLODIPine BESYLATE 10 MG TABLET (FP) PO SCH (10:05)
[2018-04-27] MEDS: ENOXAPARIN NA (PORCINE) 40 MG/0.4 ML DISP.SYRIN SQ SCH (10:05)
[2018-04-27] MEDS: NICOTINE 14 MG/24 HOURS TOPICAL PATCH TD SCH (10:26)
--- NOTE | 2018-04-27 11:17 | PN ---
Physical Exam: SUBJECTIVE: Patient seen and examined at bedside this morning. Admits malaise, headache, cough, shortness of breath, and chest pain. Denies palpitations, abdominal pain, nausea, vomiting. OBJECTIVE: Vital Signs Period Temp Pulse Resp BP Sys/Faulkner Pulse Ox Last 24 Hr 97.9 F-98.3 F 84-97 16-20 137-164/74-89 94-98 GENERAL: The patient is awake, alert, and fully oriented, in mild distress. Obese female, appears stated age. HEAD: Normal with no signs of trauma. EYES: PERRL, extraocular movements intact, sclera anicteric, conjunctiva clear. ENT: Oropharynx erythematous, without exudates. Moist mucous membranes. NECK: Trachea midline, Supple with b/l lymphadenopathy. LUNGS: Breath sounds equal, with expiratory wheezes and faint crackles auscultated bilaterally. No accessory muscle use. HEART: Regular rate and rhythm, S1, S2 without murmur, rub or gallop. ABDOMEN: obese, soft, nontender. Normoactive bowel sounds x4 quadrants. No guarding, no rebound tenderness. No hepatosplenomegaly appreciated. EXTREMITIES: 2+ radial and dorsalis pedis pulses b/l. Warm. NEUROLOGICAL: Cranial nerves II through XII grossly intact. Normal speech, strength 5/5 b/l upper and lower extremities. PSYCH: Normal mood, normal affect upon my encounter today. SKIN: Warm, dry. Laboratory Results - last 24 hr 04/26/18 04/26/18 04/26/18 17:05 17:05 21:36 WBC 7.7 RBC 4.89 Hgb 14.9 Hct 45.3 H MCV 92.5 MCH 30.4 MCHC 32.9 RDW 14.0 Plt Count 193 MPV 8.7 Absolute Neuts (auto) Neutrophils % Lymphocytes % Monocytes % Eosinophils % Basophils % Nucleated RBC % Sodium 140 Potassium 3.4 L Chloride 108 H Carbon Dioxide 26 Anion Gap 6 L BUN 8 Creatinine 0.6 Creat Clearance w eGFR > 60 Random Glucose 110 H Calcium 9.5 Phosphorus Magnesium Total Bilirubin 0.7 AST 23 ALT 26 Alkaline Phosphatase 44 L Creatine Kinase 110 Troponin I < 0.02 Total Protein 8.1 Albumin 3.7 Urine Color Straw Urine Appearance Clear Urine pH 7.0 Ur Specific [place] 1.006 Urine Protein Negative Urine Glucose (UA) Negative Urine Ketones Trace H Urine Blood Negative Urine Nitrite Negative Urine Bilirubin Negative Urine Urobilinogen Negative Ur Leukocyte Esterase Negative 04/27/18 04/27/18 06:49 06:49 WBC 6.5 RBC 4.78 Hgb 14.7 Hct 44.4 MCV 92.9 MCH 30.8 MCHC 33.2 RDW 13.6 Plt Count 179 MPV 8.6 Absolute Neuts (auto) 5.3 Neutrophils % 81.3 D Lymphocytes % 17.1 D Monocytes % 1.6 L D Eosinophils % 0.0 D Basophils % 0.0 Nucleated RBC % 0 Sodium 143 Potassium 3.6 Chloride 108 H Carbon Dioxide 27 Anion Gap 7 L BUN 11 Creatinine 0.8 Creat Clearance w eGFR > 60 Random Glucose 102 Calcium 8.8 Phosphorus 3.3 Magnesium 2.3 Total Bilirubin 0.6 AST 17 ALT 25 Alkaline Phosphatase 43 L Creatine Kinase Troponin I < 0.02 Total Protein 7.8 Albumin 3.5 Urine Color Urine Appearance Urine pH Ur Specific [place] Urine Protein Urine Glucose (UA) Urine Ketones Urine Blood Urine Nitrite Urine Bilirubin Urine Urobilinogen Ur Leukocyte Esterase Active Medications Generic Name Dose Route Start Last Admin Trade Name Freq PRN Reason Stop Dose Admin Albuterol Sulfate 1 amp 04/27/18 12:00 Ventolin 0.083% Nebulizer Soln - NEB RQID IGGY Albuterol/Ipratropium 1 amp 04/27/18 06:02 04/27/18 06:22 Duoneb - NEB 1 amp Q4H PRN Administration ASTHMA Amlodipine Besylate 10 mg 04/27/18 10:00 04/27/18 10:05 Norvasc - PO 10 mg DAILY IGGY Administration Aspirin 81 mg 04/27/18 10:00 04/27/18 10:04 Asa - PO 81 mg DAILY IGGY Administration Atorvastatin Calcium 10 mg 04/27/18 22:00 Lipitor - PO HS [facility] Budesonide/Formoterol Fumarate 2 puff 04/27/18 10:00 Symbicort 80/4.5mcg - IH BID [facility] Carvedilol 12.5 mg 04/27/18 00:15 04/27/18 10:05 Coreg - PO 12.5 mg BID IGGY Administration Enoxaparin Sodium 40 mg 04/26/18 22:00 04/27/18 10:05 Lovenox - SQ 40 mg DAILY IGGY Administration Sodium Chloride 1,000 mls @ 83 mls/hr 04/26/18 21:45 04/26/18 22:31 1/2 Normal Saline IV 83 mls/hr ASDIR IGGY Administration Losartan Potassium 100 mg 04/27/18 10:00 04/27/18 10:04 Cozaar - PO 100 mg DAILY IGGY Administration Methylprednisolone Sodium Succinate 40 mg 04/27/18 10:02 Solu-Medrol - IVPB BID IGGY Nicotine 14 mg 04/27/18 10:00 04/27/18 10:26 Nicoderm Patch - TD 14 mg DAILY IGGY Administration Ondansetron HCl 4 mg 04/26/18 21:40 Zofran Injection IVPUSH Q6H PRN NAUSEA Fluticasone/Salmeterol 1 puff 04/27/18 10:00 Advair 100mcg/50mcg - IH BID IGGY ASSESSMENT/PLAN: Patient is a 57 year old female with history of asthma, hypertension, hyperlipidemia, presents with complaint of fevers, chills, malaise, cough, shortness of breath, chest pain, nausea, one episode of NBNB vomiting, and one episode of bowel and urinary incontinence. Gastroenteritis -Likely secondary to viral vs bacterial syndrome -Zofran 4mg IV Q6H PRN for nausea -Gentle hydration with IV half-normal saline at 83mL/ hour -Follow up stool studies for Salmonella, Campylobacter, Yersenia, Vibrio, E. coli, C. diff toxin and antigen Chest pain -Likely musculoskeletal as pain reproducible with palpation, exacerbated with cough -EKG showed normal sinus rhythm at 90 bpm. -Troponins negative at 0.02 X2 Severe, persistent asthma exacerbation -Solumedrol 40mg BID -Albuterol nebulizer QID standing -Duonebs q4H PRN -Advair 1 puff IH BID -Symbicort 2 puffs IH BID -Throat swab negativ for influenza and group A strep -F/U throat culture -F/U ABG tonight Hypertension Reinstate home medications: -Losartan 100mg PO daily -Carvedilol 12.5 mg PO daily -Norvasc 10mg PO daily Hyperlipidemia -Lipitor 10mg QHS Nicotine dependence -Patient endorses that she is current smoker, and would like help quitting smoking cigarettes -Nicotine patch 14mg TD daily FEN -IV half-normal saline at 83mL/ hour -Follow CMP -Clear liquid diet Prophylaxis -Lovenox 40mg subq daily Disposition -Continue observation in medical-surgical floor. Visit type - Emergency Visit Emergency Visit: Yes ED Registration Date: 04/26/18 Care time: The patient presented to the Emergency Department on the above date and was hospitalized for further evaluation of their emergent condition. - New Patient This patient is new to me today: Yes Date on this admission: 04/27/18 - Critical Care Critical Care patient: No - Discharge Referral Referred to [facility] Med P.C.: No
[2018-04-27] MEDS: ALBUTEROL SO4 0.083% IH SOL 2.5 MG/3 ML VIAL.NEB. NEB SCH ×3 (12:34→21:12)
[2018-04-27] MEDS: BUDESONIDE/FORMETEROL FUMARATE 80/4.5 mcg INHALER IH SCH ×2 (14:25→23:02)
--- NOTE | 2018-04-27 18:15 | PN ---
Teaching Attending Note Name of Resident: Josh Schmidt ATTENDING PHYSICIAN STATEMENT I saw and evaluated the patient. I reviewed the resident's note and discussed the case with the resident. I agree with the resident's findings and plan as documented. SUBJECTIVE: No fever or chills. SOB . feels slightly better this am. had episode of stool inconinence after a spell of cough this am , also urine incontinence reports sore throat . 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 reports chest pressure and tightness with the cough and SOB OBJECTIVE: NAD , oropharync nl with normal tonsils and no exudate CV: RRR, no mRG Lungs: generalized wheezing , with prolonged exp phase Ext : no edema abd: soft, NT, ND , NL BS ASSESSMENT AND PLAN: 57 y/o lady with h/o asthma, HTN , HLP who presented with SOB and stool incontincne and was found to have acute asthma exacerbation 1- Asthma exacerbation: - steroids 40 BID - NEbs , standing and PRN - add advair - check peak flow - check ABG - flu swab and sterp swab 2- Stool incontinence: in setting of cough - check stool cx and sc diff if diarrhea 3- HTN : resume her home meds , norvasc and losartan 4- CP : atypical , due to cough and asthma. EKG with NSR. qtc 425. trop NL no further w/u dispo : HLOC
[2018-04-27 18:30] LABS: ARTERIAL BLD GAS O2 SATURATION 86.2 % (90-98.9); ARTERIAL BLOOD GAS PCO2 43.1 mmHg (35-45); ARTERIAL BLOOD GAS PO2 54.5 mmHg (80-100); ARTERIAL BLOOD GAS pH 7.39 (7.35-7.45)
[2018-04-27 18:31] LABS: ALLENS TEST POSITIVE; ARTERIAL BLOOD GAS BASE EXCESS 0.5 meq/l (-2-2)
[2018-04-27] MEDS: ATORVASTATIN CA 10 MG TABLET (FP) PO SCH (22:52)
[2018-04-27] MEDS: methylPREDNISolone NA SUCC 40 MG/1 ML VIAL IVPB SCH (22:52)
[2018-04-27] MEDS ORDERED: PT OWN MED DRAWER 7, Y5N ONE (22:58)
[2018-04-28] MEDS: ALBUTEROL SO4 2.5/IPRATROPIUM 0.5 INH SOL 3 ML VIAL.NEB. NEB PRN (03:59)
[2018-04-28 07:41] LABS: HEMATOCRIT 41.2 % (32.4-45.2); HEMOGLOBIN 13.2 GM/dL (10.7-15.3); MCHC 32.1 g/dl (32.0-36.0); MEAN CELL VOLUME 93.5 fl (80-96); MEAN PLT VOLUME 9.3 fl (7.5-11.1); PLATELET COUNT 169 K/MM3 (134-434); RDW 13.9 % (11.6-15.6); WHITE BLOOD COUNT 14.5 K/mm3 (4.0-10.0)
[2018-04-28] MEDS: ALBUTEROL SO4 0.083% IH SOL 2.5 MG/3 ML VIAL.NEB. NEB SCH ×4 (08:14→20:45)
[2018-04-28 08:16] LABS: ANION GAP 6 MMOL/L (8-16); BLOOD UREA NITROGEN 15 mg/dL (7-18); CALCIUM 9.1 mg/dL (8.5-10.1); CHLORIDE 107 mmol/L (98-107); CO2 29 mmol/L (21-32); CREATININE 0.8 mg/dL (0.55-1.3); GLUCOSE,RANDOM 124 mg/dL (74-106); POTASSIUM 3.6 mmol/L (3.5-5.1); SODIUM 143 mmol/L (136-145)
[2018-04-28] MEDS: methylPREDNISolone NA SUCC 40 MG/1 ML VIAL IVPB SCH ×3 (10:31→22:21)
[2018-04-28] MEDS: amLODIPine BESYLATE 10 MG TABLET (FP) PO SCH (10:31)
[2018-04-28] MEDS: NICOTINE 14 MG/24 HOURS TOPICAL PATCH TD SCH (10:32)
[2018-04-28] MEDS: LOSARTAN POTASSIUM 50 MG TABLET (FP) PO SCH (10:32)
[2018-04-28] MEDS: ENOXAPARIN NA (PORCINE) 40 MG/0.4 ML DISP.SYRIN SQ SCH (10:32)
[2018-04-28] MEDS: ASPIRIN 81 MG CHEWABLE TABLETS PO SCH (10:33)
[2018-04-28] MEDS: CARVEDILOL 12.5 MG TABLET (FP) PO SCH ×2 (10:33→22:21)
[2018-04-28] MEDS: BUDESONIDE/FORMETEROL FUMARATE 80/4.5 mcg INHALER IH SCH ×2 (10:33→22:22)
--- NOTE | 2018-04-28 12:37 | PN ---
Teaching Attending Note Name of Resident: Bradley Laboy ATTENDING PHYSICIAN STATEMENT I saw and evaluated the patient. I reviewed the resident's note and discussed the case with the resident. I agree with the resident's findings and plan as documented. SUBJECTIVE: No fever or chills. still feels SOB. no cough . no CP OBJECTIVE: NAD CV: RRR, no MRG Lungs: prolonged exp phase, scattered wheezing . good air entry , but decreased on bases Ext: R leg with increase circumference compared to left. no tenderness. Neg Hufman's sign ASSESSMENT AND PLAN: 57 y/o lady with h/o asthma, HTN , HLP who presented with SOB and stool incontincne and was found to have acute asthma exacerbation 1- Asthma exacerbation: - Increase steroids to 40 ID - NEbs, standing and PRN - cont symbicort - check peak flow - flu swab and sterp swab neg . - add spiriva - check US of RLE 2- Stool incontinence: in setting of cough - stool cx and cdiff pending 3- HTN : cont norvasc and losartan 4- CP: atypical , due to cough dispo : HLOC
[2018-04-28] MEDS: PANTOPRAZOLE 40 MG TABLET (FP) PO SCH (13:17)
[2018-04-28] MEDS: TIOTROPIUM BROMIDE 2.5 MCG (SPIRIVA) RESPIMAT INHALER IH SCH (13:18)
--- NOTE | 2018-04-28 13:45 | PN ---
Physical Exam: SUBJECTIVE: Patient seen and examined OBJECTIVE: Vital Signs Period Temp Pulse Resp BP Sys/Faulkner Pulse Ox Last 24 Hr 94.8 F-98.4 F 77-84 16-26 149-177/73-93 96-100 GENERAL: The patient is awake, alert, and fully oriented, in no acute distress. HEAD: Normal with no signs of trauma. EYES: PERRL, extraocular movements intact, sclera anicteric, conjunctiva clear. No ptosis. ENT: Ears normal, nares patent, oropharynx clear without exudates, moist mucous membranes. NECK: Trachea midline, full range of motion, supple. LUNGS: Breath sounds equal, clear to auscultation bilaterally, no wheezes, no crackles, no accessory muscle use. HEART: Regular rate and rhythm, S1, S2 without murmur, rub or gallop. ABDOMEN: Soft, nontender, nondistended, normoactive bowel sounds, no guarding, no rebound, no hepatosplenomegaly, no masses. EXTREMITIES: 2+ pulses, warm, well-perfused, no edema. NEUROLOGICAL: Cranial nerves II through XII grossly intact. Normal speech, gait not observed. PSYCH: Normal mood, normal affect. SKIN: Warm, dry, normal turgor, no rashes or lesions noted Laboratory Results - last 24 hr 04/27/18 04/28/18 04/28/18 18:21 06:20 06:20 WBC 14.5 H RBC 4.40 Hgb 13.2 Hct 41.2 MCV 93.5 MCH 30.0 MCHC 32.1 RDW 13.9 Plt Count 169 MPV 9.3 Anticoagulation Therapy No Result Required. Puncture Site Right radial ABG pH 7.39 ABG pCO2 at Pt Temp 43.1 ABG pO2 at Pt Temp 54.5 L D ABG HCO3 25.2 ABG O2 Sat (Measured) 86.2 L ABG O2 Content 16.5 ABG Base Excess 0.5 Connor Test Positive O2 Delivery Device Room air Oxygen Flow Rate No Vent Mode No Result Required. Vent Rate No Result Required. Mechanical Rate No Result Required. Pressure Support Vent No Result Required. Sodium 143 Potassium 3.6 Chloride 107 Carbon Dioxide 29 Anion Gap 6 L BUN 15 Creatinine 0.8 Creat Clearance w eGFR > 60 Random Glucose 124 H Calcium 9.1 Active Medications Generic Name Dose Route Start Last Admin Trade Name Freq PRN Reason Stop Dose Admin Albuterol Sulfate 1 amp 04/27/18 12:00 04/28/18 08:14 Ventolin 0.083% Nebulizer Soln - NEB 1 amp RQID IGGY Administration Albuterol/Ipratropium 1 amp 04/27/18 06:02 04/28/18 03:59 Duoneb - NEB 1 amp Q4H PRN Administration ASTHMA Amlodipine Besylate 10 mg 04/27/18 10:00 04/28/18 10:31 Norvasc - PO 10 mg DAILY IGGY Administration Aspirin 81 mg 04/27/18 10:00 04/28/18 10:33 Asa - PO 81 mg DAILY IGGY Administration Atorvastatin Calcium 10 mg 04/27/18 22:00 04/27/18 22:52 Lipitor - PO 10 mg HS IGGY Administration Budesonide/Formoterol Fumarate 2 puff 04/27/18 10:00 04/28/18 10:33 Symbicort 80/4.5mcg - IH 2 puff BID IGGY Administration Carvedilol 12.5 mg 04/27/18 00:15 04/28/18 10:33 Coreg - PO 12.5 mg BID IGGY Administration Enoxaparin Sodium 40 mg 04/26/18 22:00 04/28/18 10:32 Lovenox - SQ 40 mg DAILY IGGY Administration Losartan Potassium 100 mg 04/27/18 10:00 04/28/18 10:32 Cozaar - PO 100 mg DAILY IGGY Administration Methylprednisolone Sodium Succinate 40 mg 04/28/18 14:00 04/28/18 13:19 Solu-Medrol - IVPB 40 mg TID IGGY Administration Nicotine 14 mg 04/27/18 10:00 04/28/18 10:32 Nicoderm Patch - TD 14 mg DAILY IGGY Administration Ondansetron HCl 4 mg 04/26/18 21:40 Zofran Injection IVPUSH Q6H PRN NAUSEA Pantoprazole Sodium 40 mg 04/28/18 10:45 04/28/18 13:17 Protonix - PO 40 mg DAILY IGGY Administration Tiotropium [place] 2 puff 04/28/18 10:45 04/28/18 13:18 Spiriva Respimat IH 2 puff DAILY IGGY Administration ASSESSMENT/PLAN: 57F with multiple medical problems including asthma presents to the hospital with chest pain and shortness of breath. Acute asthma exacerbation: This is the likely cause of her atypical chest pain had cardiac work up and was negative Patient has worseneing symptoms today will increase solu-medrol to 40mg IV TID and start GI PPx Will start spiriva continue symbicort continue albuterol and duonebs O2 PRN Patient hypoxic on ABG last night Peek flow still not done -reordered Will get ABG in AM will consider repeat CXR if worsens lower extremity edema right seems worse than left and calf is tender: Will order RLE Duplex US to r/o DVT continue Lovenox for DVT PPx Leukocytosis: Likely from steroid use will trend Will consider repeat CXR to make sure an infectious process not going on if patient does not improve HTN: continue Losartan continue Carvedilol continue Norvasc Gastroenteritis continue Zofran PRN f/u C. Diff and stool studies HLD: Lipitor 10mg HS FEN: No IVF No electrolyte issues Fat restricted diet PPx: Lovenox Protonix PT consult Visit type - Emergency Visit Emergency Visit: Yes ED Registration Date: 04/26/18 Care time: The patient presented to the Emergency Department on the above date and was hospitalized for further evaluation of their emergent condition. - New Patient This patient is new to me today: Yes Date on this admission: 04/28/18 - Critical Care Critical Care patient: No
--- NOTE | 2018-04-28 17:23 | EKG ---
Test Reason : Blood Pressure : / mmHG Vent. Rate : 090 BPM Atrial Rate : 090 BPM P-R Int : 118 ms QRS Dur : 074 ms QT Int : 348 ms P-R-T Axes : 079 039 051 degrees QTc Int : 425 ms NORMAL SINUS RHYTHM NONSPECIFIC ST AND T WAVE ABNORMALITY ABNORMAL ECG WHEN COMPARED WITH ECG OF 31-MAR-2018 09:26, NONSPECIFIC T WAVE ABNORMALITY NOW EVIDENT IN LATERAL LEADS BASELINE ARTIFACT CLINICAL CORRELATION IS RECOMMENDED Confirmed by IVY MACIAS, JUVENCIO ([id number] on 04/28/2018 5:22:47 PM Referred By: Confirmed By:JUVENCIO HAYNES MD
[2018-04-28] MEDS: ATORVASTATIN CA 10 MG TABLET (FP) PO SCH (22:21)
[2018-04-29] MEDS: ALBUTEROL SO4 2.5/IPRATROPIUM 0.5 INH SOL 3 ML VIAL.NEB. NEB PRN ×2 (01:57→06:50)
[2018-04-29] MEDS: methylPREDNISolone NA SUCC 40 MG/1 ML VIAL IVPB SCH ×3 (06:36→21:47)
[2018-04-29 07:01] LABS: ARTERIAL BLD GAS O2 SATURATION 93.6 % (90-98.9); ARTERIAL BLOOD GAS BASE EXCESS 3.8 meq/l (-2-2); ARTERIAL BLOOD GAS PCO2 55.1 mmHg (35-45); ARTERIAL BLOOD GAS PO2 70.3 mmHg (80-100); ARTERIAL BLOOD GAS pH 7.36 (7.35-7.45)
[2018-04-29 07:03] LABS: ALLENS TEST POSITIVE
[2018-04-29 07:43] LABS: HEMATOCRIT 43.3 % (32.4-45.2); HEMOGLOBIN 13.9 GM/dL (10.7-15.3); MCH 30.1 pg (25.7-33.7); MEAN CELL VOLUME 93.9 fl (80-96); MEAN PLT VOLUME 9.5 fl (7.5-11.1); PLATELET COUNT 183 K/MM3 (134-434); RBC 4.61 M/mm3 (3.60-5.2); RDW 13.8 % (11.6-15.6); WHITE BLOOD COUNT 17.1 K/mm3 (4.0-10.0)
[2018-04-29 08:04] LABS: ANION GAP 2 MMOL/L (8-16); BLOOD UREA NITROGEN 19 mg/dL (7-18); CALCIUM 9.8 mg/dL (8.5-10.1); CHLORIDE 109 mmol/L (98-107); CO2 33 mmol/L (21-32); CREATININE 0.7 mg/dL (0.55-1.3); GLUCOSE,RANDOM 103 mg/dL (74-106); MAGNESIUM 2.4 mg/dL (1.8-2.4); PHOSPHOROUS 3.6 mg/dL (2.5-4.9); SODIUM 144 mmol/L (136-145)
[2018-04-29] MEDS: ALBUTEROL SO4 0.083% IH SOL 2.5 MG/3 ML VIAL.NEB. NEB SCH ×4 (08:25→20:45)
--- NOTE | 2018-04-29 08:32 | PN ---
Progress Note (short form) - Note Progress Note: Subjective: No fever or chills. still feels SOB. constipated Objective: Vital Signs: Last Vital Signs Temp Pulse Resp BP Pulse Ox 97.6 F 73 20 169/79 96 04/29/18 14:00 04/29/18 14:00 04/29/18 14:00 04/29/18 14:00 04/29/18 10:00 Laboratory Results - last 24 hr 04/29/18 04/29/18 04/29/18 06:00 06:00 06:55 WBC 17.1 H RBC 4.61 Hgb 13.9 Hct 43.3 MCV 93.9 MCH 30.1 MCHC 32.0 RDW 13.8 Plt Count 183 MPV 9.5 Anticoagulation Therapy No Result Required. Puncture Site Left radial ABG pH 7.36 ABG pCO2 at Pt Temp 55.1 H D ABG pO2 at Pt Temp 70.3 L D ABG HCO3 30.1 H ABG O2 Sat (Measured) 93.6 ABG O2 Content 17.6 ABG Base Excess 3.8 H Connor Test Positive O2 Delivery Device N/c Oxygen Flow Rate 2l Vent Mode No Result Required. Vent Rate No Result Required. Mechanical Rate No Result Required. Pressure Support Vent No Result Required. Sodium 144 Potassium 4.0 Chloride 109 H Carbon Dioxide 33 H Anion Gap 2 L BUN 19 H Creatinine 0.7 Creat Clearance w eGFR > 60 Random Glucose 103 Calcium 9.8 Phosphorus 3.6 Magnesium 2.4 Physical Exam: NAD CV: RRR, no MRG Lungs: prolonged exp phase, scattered wheezing . decreased air entry compared to yesterday Ext: No edema today ASSESSMENT AND PLAN: 57 y/o lady with h/o asthma, HTN , HLP who presented with SOB and stool incontinence and was found to have acute asthma exacerbation 1- Asthma exacerbation: cont not to feel better. decreased air wntry today. Co2 increased as per last ABG which is worrisome - cont solu-Medrol 40 TID - Cont Nebs - cont symbicort - follow peak flow - cont spiriva - cxray and ABG today - consult pulmonary for help 2- Stool incontinence: in setting of cough . resolved . now constipated start colace c diff neg 3- HTN : cont norvasc and losartan dispo : HLOC Visit type - Emergency Visit Emergency Visit: Yes ED Registration Date: 04/28/18 Care time: The patient presented to the Emergency Department on the above date and was hospitalized for further evaluation of their emergent condition. - New Patient This patient is new to me today: No - Critical Care Critical Care patient: No
[2018-04-29] MEDS: ENOXAPARIN NA (PORCINE) 40 MG/0.4 ML DISP.SYRIN SQ SCH (10:12)
[2018-04-29] MEDS: ASPIRIN 81 MG CHEWABLE TABLETS PO SCH (10:12)
[2018-04-29] MEDS: TIOTROPIUM BROMIDE 2.5 MCG (SPIRIVA) RESPIMAT INHALER IH SCH (10:12)
[2018-04-29] MEDS: CARVEDILOL 12.5 MG TABLET (FP) PO SCH ×2 (10:12→21:47)
[2018-04-29] MEDS: amLODIPine BESYLATE 10 MG TABLET (FP) PO SCH (10:12)
[2018-04-29] MEDS: PANTOPRAZOLE 40 MG TABLET (FP) PO SCH (10:12)
[2018-04-29] MEDS: LOSARTAN POTASSIUM 50 MG TABLET (FP) PO SCH (10:12)
[2018-04-29] MEDS: NICOTINE 14 MG/24 HOURS TOPICAL PATCH TD SCH (10:13)
[2018-04-29] MEDS: BUDESONIDE/FORMETEROL FUMARATE 80/4.5 mcg INHALER IH SCH ×2 (10:13→21:49)
--- NOTE | 2018-04-29 12:10 | CON.PULM ---
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 SHE HAS A H/O "ASTHMA" HYPERTENSION/HYPERLIPIDEMIA/GERD/NO SURGICAL HISTORY. PATIENT IS USUALLY MAINTAINED ON ALBUTEROL/SYMBICORT. SHE IS GIVEN SPIRIVA AND ANTIBIOTICS WHEN IN AN EXACERBATION WHICH SHE SAYS IS ONCE A YEAR. SHE DID RECEIVE A FLU SHOT. SHE STATES SHE DROVE HERSELF TO THE ER WHEN SHE NOTED PROGRESSIVE SOB ON HER WAY TO HER CAR. SHE STATES SHE ALSO LOST CONTROL OF BOWEL AND BLADDER WHILE IN HER CAR. SHE WAS NOT FEELING WELL APPROXIMATELY 2 DAYS PRIOR WITH AN UPPER RESP ILLNESS. 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 No: AFIB Pulmonary: Yes: Asthma, COPD. No: O2 Dependent, Pneumonia Gastrointestinal: Yes: GERD. No: Ascites Hepatobiliary: No: Cirrhosis Renal/: No: Renal Failure Reproductive: Yes: Postmenopausal ...: No Psych: No: Addictions Endocrine: No: Diabetes Mellitus - Past Surgical History Past Surgical History: Yes: None - Alcohol/Substance Use Hx Alcohol Use: No - Smoking History Smoking history: Current every day smoker Have you smoked in the past 12 months: Yes Aproximately how many cigarettes per day: 8 - Social History Place of : [place] History of Recent Travel: No Home Medications - Allergies Allergies/Adverse Reactions: Allergies Allergy/AdvReac Type Severity Reaction Status Date / Time clarithromycin [From Biaxin] Allergy Verified 04/27/18 02:30 - Home Medications Home Medications: Ambulatory Orders Pravastatin Sodium [Pravachol -] 40 mg PO DAILY 07/12/15 Amlodipine Besylate [Norvasc -] 10 mg PO DAILY #30 tablet 10/16/15 Carvedilol 12.5 mg PO BID 01/19/18 Albuterol 0.083% Nebulizer Nuris [Ventolin 0.083% Nebulizer Soln -] 1 neb NEB Q4H #30 vial 03/22/18 Aspirin 81 mg PO DAILY 04/26/18 Losartan Potassium 100 mg PO DAILY 04/26/18 Family Disease History - Family Disease History Family History: Unremarkable Review of Systems - Review of Systems Constitutional: denies: Fever Eyes: denies: Blurred Vision HENT: denies: Difficult Swallowing Neck: denies: Decreased ROM Cardiovascular: denies: Chest Pain Respiratory: reports: Cough, Exercise Intolerance, SOB on Exertion, Wheezing. denies: Hemoptysis, Orthopnea Gastrointestinal: reports: Diarrhea. denies: Abdominal Pain Genitourinary: reports: No Symptoms Breasts: reports: No Symptoms Reported Musculoskeletal: reports: No Symptoms Integumentary: reports: No Symptoms Physical Exam Vital Sings: Vital Signs Temperature 98.1 F 04/29/18 10:00 Pulse Rate 75 04/29/18 10:00 Respiratory Rate 20 04/29/18 10:00 Blood Pressure 180/93 H 04/29/18 10:00 O2 Sat by Pulse Oximetry (%) 96 04/29/18 10:00 Constitutional: Yes: Calm Eyes: Yes: EOM Intact HENT: Yes: Normocephalic Neck: Yes: Trachea Midline Cardiovascular: Yes: Regular Rate and Rhythm, S1 Respiratory: Yes: Diminished, Wheezes Gastrointestinal: Yes: Normal Bowel Sounds Edema: No Neurological: Yes: Alert Labs: CBC, BMP 04/29/18 06:00 04/29/18 06:00 ABG Results ABG pH 7.36 (7.35-7.45) 04/29/18 06:55 ABG pCO2 at Pt Temp 55.1 mmHg (35-45) H D 04/29/18 06:55 ABG pO2 at Pt Temp 70.3 mmHg (80-100) L D 04/29/18 06:55 ABG HCO3 30.1 meq/L (22-26) H 04/29/18 06:55 ABG O2 Sat (Measured) 93.6 % (90-98.9) 04/29/18 06:55 ABG O2 Content 17.6 % vol (15-22) 04/29/18 06:55 ABG Base Excess 3.8 meq/l (-2-2) H 04/29/18 06:55 Imaging - Results Chest X-ray: Report Reviewed, Image Reviewed Problem List - Problems (1) COPD (chronic obstructive pulmonary disease) Code(s): J44.9 - CHRONIC OBSTRUCTIVE PULMONARY DISEASE, UNSPECIFIED (2) Dyspnea Code(s): R06.00 - DYSPNEA, UNSPECIFIED Qualifiers: Dyspnea type: shortness of breath Qualified Code(s): R06.02 - Shortness of breath; R06.00 - Dyspnea, unspecified; R06.01 - Orthopnea (3) Cough Code(s): R05 - COUGH (4) Diarrhea Code(s): R19.7 - DIARRHEA, UNSPECIFIED Qualifiers: Diarrhea type: unspecified type Qualified Code(s): R19.7 - Diarrhea, unspecified (5) Hypertension Code(s): I10 - ESSENTIAL (PRIMARY) HYPERTENSION (6) Asthma Code(s): J45.909 - UNSPECIFIED ASTHMA, UNCOMPLICATED Assessment/Plan LIKELY ACUTE BRONCHITIS SUPERIMPOSED UPON COPD WITH BRONCHOSPASTIC COMPONENT HTN/HPL/GERD INCONTINENCE EPISODE WORKUP UNREVEALING THUS FAR RESP MICRO NEGATIVE AGREE WITH O2 SUPPLEMENTATION BRONCHODILATORS/STEROIDS TRIAL OF ANTIBIOTICS MONITOR DIARRHEA WILL FOLLOW THANK YOU Basilia ROSS MD
[2018-04-29] MEDS ORDERED: DOCUSATE SODIUM 100 MG CAPSULE (FP) PO ONE (16:01)
[2018-04-29] MEDS ORDERED: PT OWN MED DRAWER 7, Y5N ONE (21:31)
[2018-04-29] MEDS: ATORVASTATIN CA 10 MG TABLET (FP) PO SCH (21:47)
[2018-04-30] MEDS: ALBUTEROL SO4 2.5/IPRATROPIUM 0.5 INH SOL 3 ML VIAL.NEB. NEB PRN ×2 (01:20→06:40)
[2018-04-30 06:21] LABS: BASO % 0.3 % (0-2.0); HEMATOCRIT 42.6 % (32.4-45.2); HEMOGLOBIN 13.7 GM/dL (10.7-15.3); LYMPH % 9.6 % (8-40); MCH 30.1 pg (25.7-33.7); MCHC 32.2 g/dl (32.0-36.0); MEAN CELL VOLUME 93.5 fl (80-96); MEAN PLT VOLUME 9.5 fl (7.5-11.1); MONO % 3.8 % (3.8-10.2); NEUT % 86.3 % (42.8-82.8); PLATELET COUNT 164 K/MM3 (134-434); RBC 4.56 M/mm3 (3.60-5.2); RDW 13.7 % (11.6-15.6); WHITE BLOOD COUNT 13.7 K/mm3 (4.0-10.0)
[2018-04-30] MEDS: methylPREDNISolone NA SUCC 40 MG/1 ML VIAL IVPB SCH ×3 (06:33→21:40)
[2018-04-30] MEDS: ALBUTEROL SO4 0.083% IH SOL 2.5 MG/3 ML VIAL.NEB. NEB SCH ×4 (07:50→19:34)
[2018-04-30] MEDS: ASPIRIN 81 MG CHEWABLE TABLETS PO SCH (09:17)
[2018-04-30] MEDS: DOCUSATE SODIUM 100 MG CAPSULE (FP) PO SCH (09:18)
[2018-04-30] MEDS: LOSARTAN POTASSIUM 50 MG TABLET (FP) PO SCH (09:18)
[2018-04-30] MEDS: PANTOPRAZOLE 40 MG TABLET (FP) PO SCH (09:18)
[2018-04-30] MEDS: CARVEDILOL 12.5 MG TABLET (FP) PO SCH (09:18)
[2018-04-30] MEDS: amLODIPine BESYLATE 10 MG TABLET (FP) PO SCH (09:18)
[2018-04-30] MEDS: ENOXAPARIN NA (PORCINE) 40 MG/0.4 ML DISP.SYRIN SQ SCH (09:18)
[2018-04-30] MEDS: NICOTINE 14 MG/24 HOURS TOPICAL PATCH TD SCH (09:19)
[2018-04-30] MEDS: TIOTROPIUM BROMIDE 2.5 MCG (SPIRIVA) RESPIMAT INHALER IH SCH (09:19)
[2018-04-30] MEDS: BUDESONIDE/FORMETEROL FUMARATE 80/4.5 mcg INHALER IH SCH ×2 (09:19→21:39)
--- NOTE | 2018-04-30 09:43 | PN ---
Physical Exam: SUBJECTIVE: Patient seen and examined at bedside this morning. Complains of cough productive with yellow-white sputum, and shortness of breath. Denies fevers, chills, chest pain palpitations, abdominal pain, nausea, vomiting. OBJECTIVE: Vital Signs Period Temp Pulse Resp BP Sys/Faulkner Pulse Ox Last 24 Hr 97.6 F-98.3 F 68-83 20-22 145-180/77-93 96-99 GENERAL: The patient is awake, alert, and fully oriented, in mild distress. Obese female, appears stated age. HEAD: Normal with no signs of trauma. EYES: PERRL, extraocular movements intact, sclera anicteric, conjunctiva clear. ENT: Oropharynx erythematous, without exudates. Moist mucous membranes. NECK: Trachea midline, Supple with b/l lymphadenopathy. LUNGS: Breath sounds equal, with expiratory wheezes and faint crackles auscultated bilaterally. No accessory muscle use. HEART: Regular rate and rhythm, S1, S2 without murmur, rub or gallop. ABDOMEN: obese, soft, nontender. Normoactive bowel sounds x4 quadrants. No guarding, no rebound tenderness. No hepatosplenomegaly appreciated. EXTREMITIES: 2+ radial and dorsalis pedis pulses b/l. Warm. 2+ pitting edema right leg, 1+ pitting edema left leg. NEUROLOGICAL: Cranial nerves II through XII grossly intact. Normal speech, strength 5/5 b/l upper and lower extremities. PSYCH: Normal mood, normal affect upon my encounter today. SKIN: Warm, dry. Laboratory Results - last 24 hr 04/30/18 05:30 WBC 13.7 H RBC 4.56 Hgb 13.7 Hct 42.6 MCV 93.5 MCH 30.1 MCHC 32.2 RDW 13.7 Plt Count 164 MPV 9.5 Absolute Neuts (auto) 11.8 H Neutrophils % 86.3 H Lymphocytes % 9.6 D Monocytes % 3.8 D Eosinophils % 0.0 Basophils % 0.3 D Nucleated RBC % 0 Active Medications Generic Name Dose Route Start Last Admin Trade Name Freq PRN Reason Stop Dose Admin Albuterol Sulfate 1 amp 04/27/18 12:00 04/30/18 07:50 Ventolin 0.083% Nebulizer Soln - NEB 1 amp RQID IGGY Administration Albuterol/Ipratropium 1 amp 04/27/18 06:02 04/30/18 06:40 Duoneb - NEB 1 amp Q4H PRN Administration ASTHMA Amlodipine Besylate 10 mg 04/27/18 10:00 04/30/18 09:18 Norvasc - PO 10 mg DAILY IGGY Administration Aspirin 81 mg 04/27/18 10:00 04/30/18 09:17 Asa - PO 81 mg DAILY IGGY Administration Atorvastatin Calcium 10 mg 04/27/18 22:00 04/29/18 21:47 Lipitor - PO 10 mg HS IGGY Administration Budesonide/Formoterol Fumarate 2 puff 04/27/18 10:00 04/30/18 09:19 Symbicort 80/4.5mcg - IH 2 puff BID IGGY Administration Carvedilol 12.5 mg 04/27/18 00:15 04/30/18 09:18 Coreg - PO 12.5 mg BID IGGY Administration Docusate Sodium 100 mg 04/30/18 10:00 04/30/18 09:18 Colace - PO 100 mg DAILY IGGY Administration Enoxaparin Sodium 40 mg 04/26/18 22:00 04/30/18 09:18 Lovenox - SQ 40 mg DAILY IGGY Administration Losartan Potassium 100 mg 04/27/18 10:00 04/30/18 09:18 Cozaar - PO 100 mg DAILY IGGY Administration Methylprednisolone Sodium Succinate 40 mg 04/28/18 14:00 04/30/18 06:33 Solu-Medrol - IVPB 40 mg TID IGGY Administration Nicotine 14 mg 04/27/18 10:00 04/30/18 09:19 Nicoderm Patch - TD 14 mg DAILY IGGY Administration Ondansetron HCl 4 mg 04/26/18 21:40 Zofran Injection IVPUSH Q6H PRN NAUSEA Pantoprazole Sodium 40 mg 04/28/18 10:45 04/30/18 09:18 Protonix - PO 40 mg DAILY IGGY Administration Tiotropium [place] 2 puff 04/28/18 10:45 04/30/18 09:19 Spiriva Respimat IH 2 puff DAILY IGGY Administration ASSESSMENT/PLAN: Patient is a 57 year old female with history of asthma, hypertension, hyperlipidemia, presents with complaint of fevers, chills, malaise, cough, shortness of breath, chest pain, nausea, one episode of NBNB vomiting, and one episode of bowel and urinary incontinence. Severe, persistent asthma exacerbation -Pulmonary (Dr. Hernandez) consult appreciated -Solumedrol 60mg Q6H -Albuterol nebulizer QID standing -Duonebs q4H PRN -Symbicort 2 puffs IH BID -Spiriva 2 puffs ID daily -Throat swab negative for influenza and group A strep -Throat culture negative -ABG shows decreasing Co2, reassuring that she is not retaining CO2. Gastroenteritis -Likely secondary to viral vs bacterial syndrome -Zofran 4mg IV Q6H PRN for nausea -Gentle hydration with IV half-normal saline at 83mL/ hour -Follow up stool studies for Salmonella, Campylobacter, Yersenia, Vibrio, E. coli, C. diff toxin and antigen Chest pain -Improving. Likely musculoskeletal as pain reproducible with palpation, exacerbated with cough -EKG showed normal sinus rhythm at 90 bpm. -Troponins negative at 0.02 X2 Hypertension Reinstate home medications: -Losartan 100mg PO daily -Carvedilol 12.5 mg increased to 25mg PO dialy -Norvasc 10mg PO daily Hyperlipidemia -Lipitor 10mg QHS Nicotine dependence -Patient endorses that she is current smoker, and would like help quitting smoking cigarettes -Nicotine patch 14mg TD daily FEN -No IV fluids -Follow CMP -Cholesterol, fat, sodium restricted diet. Prophylaxis -Lovenox 40mg subq daily Disposition -Continue care in medical-surgical floor. Visit type - Emergency Visit Emergency Visit: Yes ED Registration Date: 04/28/18 Care time: The patient presented to the Emergency Department on the above date and was hospitalized for further evaluation of their emergent condition. - New Patient This patient is new to me today: No - Critical Care Critical Care patient: No - Discharge Referral Referred to [facility] No
--- NOTE | 2018-04-30 10:45 | PN ---
Progress Note, Physician History of Present Illness: PULMONARY ALERT,VERY DYSPNEIC WITH MIN EXERTION,+ COUGH - Current Medication List Current Medications: Active Medications Albuterol Sulfate (Ventolin 0.083% Nebulizer Soln -) 1 amp NEB RQID [facility] Last Admin: 04/30/18 07:50 Dose: 1 amp Albuterol/Ipratropium (Duoneb -) 1 amp NEB Q4H PRN PRN Reason: ASTHMA Last Admin: 04/30/18 06:40 Dose: 1 amp Amlodipine Besylate (Norvasc -) 10 mg PO DAILY [facility] Last Admin: 04/30/18 09:18 Dose: 10 mg Aspirin (Asa -) 81 mg PO DAILY [facility] Last Admin: 04/30/18 09:17 Dose: 81 mg Atorvastatin Calcium (Lipitor -) 10 mg PO HS [facility] Last Admin: 04/29/18 21:47 Dose: 10 mg Budesonide/Formoterol Fumarate (Symbicort 80/4.5mcg -) 2 puff IH BID [facility] Last Admin: 04/30/18 09:19 Dose: 2 puff Carvedilol (Coreg -) 12.5 mg PO BID [facility] Last Admin: 04/30/18 09:18 Dose: 12.5 mg Docusate Sodium (Colace -) 100 mg PO DAILY [facility] Last Admin: 04/30/18 09:18 Dose: 100 mg Enoxaparin Sodium (Lovenox -) 40 mg SQ DAILY [facility] Last Admin: 04/30/18 09:18 Dose: 40 mg Losartan Potassium (Cozaar -) 100 mg PO DAILY [facility] Last Admin: 04/30/18 09:18 Dose: 100 mg Methylprednisolone Sodium Succinate (Solu-Medrol -) 40 mg IVPB TID [facility] Last Admin: 04/30/18 06:33 Dose: 40 mg Nicotine (Nicoderm Patch -) 14 mg TD DAILY [facility] Last Admin: 04/30/18 09:19 Dose: 14 mg Ondansetron HCl (Zofran Injection) 4 mg IVPUSH Q6H PRN PRN Reason: NAUSEA Pantoprazole Sodium (Protonix -) 40 mg PO DAILY [facility] Last Admin: 04/30/18 09:18 Dose: 40 mg Tiotropium [place] (Spiriva Respimat) 2 puff IH DAILY [facility] Last Admin: 04/30/18 09:19 Dose: 2 puff - Objective Vital Signs: Vital Signs Temperature 98.2 F 04/30/18 05:00 Pulse Rate 76 04/30/18 05:00 Respiratory Rate 20 04/30/18 05:00 Blood Pressure 149/77 04/30/18 05:00 O2 Sat by Pulse Oximetry (%) 98 04/29/18 21:00 Constitutional: Yes: Mild Distress, Obese Eyes: Yes: WNL HENT: Yes: WNL Neck: Yes: WNL Cardiovascular: Yes: Regular Rate and Rhythm, S1, S2 Respiratory: Yes: Wheezes (DIFFUSE SLOAN WHEEZES AND RHONCHI) Gastrointestinal: Yes: Normal Bowel Sounds, Soft Extremities: Yes: WNL Edema: No Labs: CBC, BMP 04/30/18 05:30 Assessment/Plan Problem List - Problems (1) COPD (chronic obstructive pulmonary disease) Code(s): J44.9 - CHRONIC OBSTRUCTIVE PULMONARY DISEASE, UNSPECIFIED (2) Dyspnea Code(s): R06.00 - DYSPNEA, UNSPECIFIED Qualifiers: Dyspnea type: shortness of breath Qualified Code(s): R06.02 - Shortness of breath; R06.00 - Dyspnea, unspecified; R06.01 - Orthopnea (3) Cough Code(s): R05 - COUGH (4) Diarrhea Code(s): R19.7 - DIARRHEA, UNSPECIFIED Qualifiers: Diarrhea type: unspecified type Qualified Code(s): R19.7 - Diarrhea, unspecified (5) Hypertension Code(s): I10 - ESSENTIAL (PRIMARY) HYPERTENSION (6) Asthma Code(s): J45.909 - UNSPECIFIED ASTHMA, UNCOMPLICATED Assessment/Plan ACUTE BRONCHITIS SUPERIMPOSED UPON COPD WITH BRONCHOSPASTIC COMPONENT HTN HPL GERD O2 SUPPLEMENTATION BRONCHODILATORS IV STEROIDS WILL INCREASE TO 60mg q 6h ANTIBIOTICS MONITOR DIARRHEA DR CUNHA
--- NOTE | 2018-04-30 14:04 | PN ---
Teaching Attending Note Name of Resident: Josh Schmidt ATTENDING PHYSICIAN STATEMENT I saw and evaluated the patient. I reviewed the resident's note and discussed the case with the resident. I agree with the resident's findings and plan as documented. SUBJECTIVE: SOB is better today . no cough . constipated OBJECTIVE: NAD CV: RRR, no MRG Lungs: prolonged exp phase, scattered wheezing . diminished air entry but slightly better that yesterday Ext: No edema today ASSESSMENT AND PLAN: 57 y/o lady with h/o asthma, HTN , HLP who presented with SOB and stool incontinence and was found to have acute asthma exacerbation 1- Asthma exacerbation: stable condition compared to yesterday - cont solu-Medrol - Cont Nebs - cont symbicort - peak flow is worse today - cont spiriva - refused ABG today - leuocytosis is due to steroids . No evidence of pNA 2- Stool incontinence: in setting of cough . resolved . now constipated colace c diff neg 3- HTN : cont norvasc and losartan dispo : HLOC
[2018-04-30 16:23] LABS: ARTERIAL BLOOD GAS PCO2 44.6 mmHg (35-45); ARTERIAL BLOOD GAS PO2 73.8 mmHg (80-100); ARTERIAL BLOOD GAS pH 7.46 (7.35-7.45)
[2018-04-30 16:24] LABS: ALLENS TEST POSITIVE; ARTERIAL BLD GAS O2 SATURATION 95.2 % (90-98.9)
[2018-04-30] MEDS: CARVEDILOL 25 MG TABLET (FP) PO SCH (21:39)
[2018-04-30] MEDS: ATORVASTATIN CA 10 MG TABLET (FP) PO SCH (21:39)
[2018-04-30] MEDS ORDERED: CARVEDILOL 25 MG TABLET (FP) PO ONE (23:44)
[2018-05-01] MEDS: methylPREDNISolone NA SUCC 40 MG/1 ML VIAL IVPB SCH ×3 (02:27→18:07)
[2018-05-01] MEDS: ALBUTEROL SO4 2.5/IPRATROPIUM 0.5 INH SOL 3 ML VIAL.NEB. NEB PRN (02:30)
[2018-05-01 07:30] LABS: HEMATOCRIT 44.2 % (32.4-45.2); HEMOGLOBIN 14.6 GM/dL (10.7-15.3); MCH 30.4 pg (25.7-33.7); MCHC 33.1 g/dl (32.0-36.0); MEAN PLT VOLUME 8.9 fl (7.5-11.1); PLATELET COUNT 184 K/MM3 (134-434); RDW 13.5 % (11.6-15.6); WHITE BLOOD COUNT 10.9 K/mm3 (4.0-10.0)
[2018-05-01] MEDS: ALBUTEROL SO4 0.083% IH SOL 2.5 MG/3 ML VIAL.NEB. NEB SCH ×4 (07:55→20:56)
[2018-05-01 07:59] LABS: ANION GAP 4 MMOL/L (8-16); BLOOD UREA NITROGEN 20 mg/dL (7-18); CALCIUM 9.3 mg/dL (8.5-10.1); CHLORIDE 103 mmol/L (98-107); CO2 35 mmol/L (21-32); CREATININE 0.7 mg/dL (0.55-1.3); GLUCOSE,RANDOM 120 mg/dL (74-106); MAGNESIUM 2.4 mg/dL (1.8-2.4); PHOSPHOROUS 3.6 mg/dL (2.5-4.9); POTASSIUM 3.3 mmol/L (3.5-5.1); SODIUM 142 mmol/L (136-145)
--- NOTE | 2018-05-01 08:02 | PN ---
Physical Exam: SUBJECTIVE: Patient seen and examined at bedside this morning. Admits improvement of shortness of breath, and cough still productive with yellow- white sputum. Denies fevers, chills, chest pain palpitations, abdominal pain, nausea, vomiting. OBJECTIVE: Vital Signs Temperature 98.1 F 05/01/18 14:00 Pulse Rate 74 05/01/18 14:00 Respiratory Rate 18 05/01/18 09:00 Blood Pressure 185/105 H 05/01/18 14:00 O2 Sat by Pulse Oximetry (%) 97 05/01/18 09:00 GENERAL: The patient is awake, alert, and fully oriented, in mild distress. Obese female, appears stated age. HEAD: Normal with no signs of trauma. EYES: PERRL, extraocular movements intact, sclera anicteric, conjunctiva clear. ENT: Oropharynx erythematous, without exudates. Moist mucous membranes. NECK: Trachea midline, Supple with b/l lymphadenopathy. LUNGS: Breath sounds equal, with expiratory wheezes and faint crackles auscultated bilaterally. No accessory muscle use. HEART: Regular rate and rhythm, S1, S2 without murmur, rub or gallop. ABDOMEN: obese, soft, nontender. Normoactive bowel sounds x4 quadrants. No guarding, no rebound tenderness. No hepatosplenomegaly appreciated. EXTREMITIES: 2+ radial and dorsalis pedis pulses b/l. Warm. 2+ pitting edema right leg, 1+ pitting edema left leg. NEUROLOGICAL: Cranial nerves II through XII grossly intact. Normal speech, strength 5/5 b/l upper and lower extremities. PSYCH: Normal mood, normal affect upon my encounter today. SKIN: Warm, dry. Laboratory Results - last 24 hr 04/30/18 05/01/18 16:07 06:55 Anticoagulation Therapy No Result Required. Puncture Site Left radial ABG pH 7.46 H ABG pCO2 at Pt Temp 44.6 ABG pO2 at Pt Temp 73.8 L ABG HCO3 31.4 H ABG O2 Sat (Measured) 95.2 ABG O2 Content 19.2 ABG Base Excess 7.0 H Connor Test Positive O2 Delivery Device No Result Required. Oxygen Flow Rate No Result Required. Vent Mode No Result Required. Vent Rate No Result Required. Mechanical Rate No Result Required. Pressure Support Vent No Result Required. Sodium 142 Potassium 3.3 L Chloride 103 Carbon Dioxide 35 H Anion Gap 4 L BUN 20 H Creatinine 0.7 Creat Clearance w eGFR > 60 Random Glucose 120 H Calcium 9.3 Phosphorus 3.6 Magnesium 2.4 Active Medications Generic Name Dose Route Start Last Admin Trade Name Freq PRN Reason Stop Dose Admin Albuterol Sulfate 1 amp 04/27/18 12:00 04/30/18 19:34 Ventolin 0.083% Nebulizer Soln - NEB 1 amp RQID IGGY Administration Albuterol/Ipratropium 1 amp 04/27/18 06:02 05/01/18 02:30 Duoneb - NEB 1 amp Q4H PRN Administration ASTHMA Amlodipine Besylate 10 mg 04/27/18 10:00 04/30/18 09:18 Norvasc - PO 10 mg DAILY IGGY Administration Aspirin 81 mg 04/27/18 10:00 04/30/18 09:17 Asa - PO 81 mg DAILY IGGY Administration Atorvastatin Calcium 10 mg 04/27/18 22:00 04/30/18 21:39 Lipitor - PO 10 mg HS IGGY Administration Budesonide/Formoterol Fumarate 2 puff 04/27/18 10:00 04/30/18 21:39 Symbicort 80/4.5mcg - IH 2 puff BID IGGY Administration Carvedilol 25 mg 04/30/18 12:01 04/30/18 21:39 Coreg - PO 25 mg BID IGGY Administration Docusate Sodium 100 mg 04/30/18 10:00 04/30/18 09:18 Colace - PO 100 mg DAILY IGGY Administration Enoxaparin Sodium 40 mg 04/26/18 22:00 04/30/18 09:18 Lovenox - SQ 40 mg DAILY IGGY Administration Losartan Potassium 100 mg 04/27/18 10:00 04/30/18 09:18 Cozaar - PO 100 mg DAILY IGGY Administration Methylprednisolone Sodium Succinate 60 mg 04/30/18 15:00 05/01/18 02:27 Solu-Medrol - IVPB 60 mg Q6H-IV IGGY Administration Nicotine 14 mg 04/27/18 10:00 04/30/18 09:19 Nicoderm Patch - TD 14 mg DAILY IGGY Administration Ondansetron HCl 4 mg 04/26/18 21:40 Zofran Injection IVPUSH Q6H PRN NAUSEA Pantoprazole Sodium 40 mg 04/28/18 10:45 10/08/18 09:18 Protonix - PO 40 mg DAILY IGGY Administration Potassium Chloride 40 meq 05/01/18 08:00 K-Dur - PO 05/01/18 08:01 ONCE ONE Tiotropium [place] 2 puff 04/28/18 10:45 04/30/18 09:19 Spiriva Respimat IH 2 puff DAILY IGGY Administration ASSESSMENT/PLAN: Patient is a 57 year old female with history of asthma, hypertension, hyperlipidemia, presents with complaint of fevers, chills, malaise, cough, shortness of breath, chest pain, nausea, one episode of NBNB vomiting, and one episode of bowel and urinary incontinence. Severe, persistent asthma exacerbation -Pulmonary (Dr. Hernandez) consult appreciated -Solumedrol 40mg Q8H -Albuterol nebulizer QID standing -Duonebs q4H PRN -Symbicort 2 puffs IH BID -Spiriva 2 puffs ID daily Gastroenteritis -Improved. Likely secondary to viral vs bacterial syndrome -Zofran 4mg IV Q6H PRN for nausea -Stool studies negative for Salmonella, Campylobacter, Yersenia, Vibrio, E. coli , C. diff toxin and antigen Chest pain -Improving. Likely musculoskeletal as pain reproducible with palpation, exacerbated with cough. -EKG showed normal sinus rhythm at 90 bpm. -Troponins negative at 0.02 X2 Hypertension Reinstate home medications: -Losartan 100mg PO daily -Carvedilol 12.5 mg increased to 25mg PO dialy -Norvasc 10mg PO daily -Hydralazine 5mg IV Q8H if systolic BP greater than 170mmHg, or diastolic BP greater than 105mmHg Hyperlipidemia -Lipitor 10mg QHS Nicotine dependence -Patient endorses that she is current smoker, and would like help quitting smoking cigarettes -Nicotine patch 14mg TD daily FEN -No IV fluids -Follow CMP -Cholesterol, fat, sodium restricted diet. Prophylaxis -Lovenox 40mg subq daily Disposition -Continue care in medical-surgical floor. Visit type - Emergency Visit Emergency Visit: Yes ED Registration Date: 04/28/18 Care time: The patient presented to the Emergency Department on the above date and was hospitalized for further evaluation of their emergent condition. - New Patient This patient is new to me today: No - Critical Care Critical Care patient: No - Discharge Referral Referred to [facility] No
[2018-05-01] MEDS ORDERED: POTASSIUM CHLORIDE TABS 20 MEQ TABLET.ER (FP) PO ONE (09:00)
[2018-05-01] MEDS: ASPIRIN 81 MG CHEWABLE TABLETS PO SCH (09:21)
[2018-05-01] MEDS: LOSARTAN POTASSIUM 50 MG TABLET (FP) PO SCH (09:21)
[2018-05-01] MEDS: amLODIPine BESYLATE 10 MG TABLET (FP) PO SCH (09:21)
[2018-05-01] MEDS: CARVEDILOL 25 MG TABLET (FP) PO SCH ×2 (09:21→21:32)
[2018-05-01] MEDS: DOCUSATE SODIUM 100 MG CAPSULE (FP) PO SCH (09:22)
[2018-05-01] MEDS: PANTOPRAZOLE 40 MG TABLET (FP) PO SCH (09:22)
[2018-05-01] MEDS: ENOXAPARIN NA (PORCINE) 40 MG/0.4 ML DISP.SYRIN SQ SCH (09:22)
[2018-05-01] MEDS: NICOTINE 14 MG/24 HOURS TOPICAL PATCH TD SCH (09:23)
[2018-05-01] MEDS: TIOTROPIUM BROMIDE 2.5 MCG (SPIRIVA) RESPIMAT INHALER IH SCH (09:23)
[2018-05-01] MEDS: BUDESONIDE/FORMETEROL FUMARATE 80/4.5 mcg INHALER IH SCH ×2 (09:24→21:32)
--- NOTE | 2018-05-01 11:24 | PN ---
Progress Note, Physician History of Present Illness: PULMONARY ALERT,MUCH IMPROVED TODAY,LESS WHEEZES,-SOB,-CP - Current Medication List Current Medications: Active Medications Albuterol Sulfate (Ventolin 0.083% Nebulizer Soln -) 1 amp NEB RQID [facility] Last Admin: 05/01/18 07:55 Dose: 1 amp Albuterol/Ipratropium (Duoneb -) 1 amp NEB Q4H PRN PRN Reason: ASTHMA Last Admin: 05/01/18 02:30 Dose: 1 amp Amlodipine Besylate (Norvasc -) 10 mg PO DAILY [facility] Last Admin: 05/01/18 09:21 Dose: 10 mg Aspirin (Asa -) 81 mg PO DAILY [facility] Last Admin: 05/01/18 09:21 Dose: 81 mg Atorvastatin Calcium (Lipitor -) 10 mg PO HS [facility] Last Admin: 04/30/18 21:39 Dose: 10 mg Budesonide/Formoterol Fumarate (Symbicort 80/4.5mcg -) 2 puff IH BID [facility] Last Admin: 05/01/18 09:24 Dose: 2 puff Carvedilol (Coreg -) 25 mg PO BID [facility] Last Admin: 05/01/18 09:21 Dose: 25 mg Docusate Sodium (Colace -) 100 mg PO DAILY [facility] Last Admin: 05/01/18 09:22 Dose: 100 mg Enoxaparin Sodium (Lovenox -) 40 mg SQ DAILY [facility] Last Admin: 05/01/18 09:22 Dose: 40 mg Losartan Potassium (Cozaar -) 100 mg PO DAILY [facility] Last Admin: 05/01/18 09:21 Dose: 100 mg Methylprednisolone Sodium Succinate (Solu-Medrol -) 60 mg IVPB Q6H-IV [facility] Last Admin: 05/01/18 09:22 Dose: 60 mg Nicotine (Nicoderm Patch -) 14 mg TD DAILY [facility] Last Admin: 05/01/18 09:23 Dose: 14 mg Ondansetron HCl (Zofran Injection) 4 mg IVPUSH Q6H PRN PRN Reason: NAUSEA Pantoprazole Sodium (Protonix -) 40 mg PO DAILY [facility] Last Admin: 05/01/18 09:22 Dose: 40 mg Tiotropium [place] (Spiriva Respimat) 2 puff IH DAILY [facility] Last Admin: 05/01/18 09:23 Dose: 2 puff - Objective Vital Signs: Vital Signs Temperature 98.3 F 05/01/18 05:00 Pulse Rate 71 05/01/18 05:00 Respiratory Rate 19 05/01/18 05:00 Blood Pressure 157/77 05/01/18 05:00 O2 Sat by Pulse Oximetry (%) 98 04/30/18 21:00 Constitutional: Yes: Well Nourished, Calm Eyes: Yes: WNL HENT: Yes: WNL Neck: Yes: WNL Cardiovascular: Yes: Regular Rate and Rhythm, S1, S2 Respiratory: Yes: Wheezes (FEW SCATTERED WHEEZES) Gastrointestinal: Yes: Normal Bowel Sounds, Soft Extremities: Yes: WNL Edema: No Labs: CBC, BMP 05/01/18 06:55 05/01/18 06:55 Assessment/Plan Problem List - Problems (1) COPD (chronic obstructive pulmonary disease) Code(s): J44.9 - CHRONIC OBSTRUCTIVE PULMONARY DISEASE, UNSPECIFIED (2) Dyspnea Code(s): R06.00 - DYSPNEA, UNSPECIFIED Qualifiers: Dyspnea type: shortness of breath Qualified Code(s): R06.02 - Shortness of breath; R06.00 - Dyspnea, unspecified; R06.01 - Orthopnea (3) Cough Code(s): R05 - COUGH (4) Diarrhea Code(s): R19.7 - DIARRHEA, UNSPECIFIED Qualifiers: Diarrhea type: unspecified type Qualified Code(s): R19.7 - Diarrhea, unspecified (5) Hypertension Code(s): I10 - ESSENTIAL (PRIMARY) HYPERTENSION (6) Asthma Code(s): J45.909 - UNSPECIFIED ASTHMA, UNCOMPLICATED Assessment/Plan ACUTE BRONCHITIS SUPERIMPOSED UPON COPD WITH BRONCHOSPASTIC COMPONENT HTN HPL GERD O2 SUPPLEMENTATION BRONCHODILATORS DECREASE STEROIDS ANTIBIOTICS MONITOR DIARRHEA DR CUNHA
--- NOTE | 2018-05-01 16:21 | PN ---
Teaching Attending Note Name of Resident: Josh Schmidt ATTENDING PHYSICIAN STATEMENT I saw and evaluated the patient. I reviewed the resident's note and discussed the case with the resident. I agree with the resident's findings and plan as documented. SUBJECTIVE: she feels a little better for the first time this admission. minimal cough . SOB with ambulation . had a BM today OBJECTIVE: NAD CV: RRR, no MRG Lungs: prolonged exp phase, scattered wheezing . improved air entry today Ext: No edema today ASSESSMENT AND PLAN: 57 y/o lady with h/o asthma, HTN , HLP who presented with SOB and stool incontinence and was found to have acute asthma exacerbation 1- Asthma exacerbation: slightly improved. karol flow improved today - cont solu-Medrol taper . started to develop myopathy and severe HTN as a side effect - Cont Nebs - cont symbicort - cont peak flow monitoring - cont spiriva - leuocytosis is due to steroids. No evidence of pNA 2- Stool incontinence: in setting of cough . resolved . now constipated bowel regimen 3- HTN : cont norvasc and losartan and coreg try to tape steroids quickly PT eval . d/w therapist. proximal muscle weakness. likely due to steroids.
[2018-05-01] MEDS ORDERED: LABETALOL HCL 5 MG/1 ML (100MG/20 ML VIAL) IVPUSH PRN (16:45)
[2018-05-01] MEDS ORDERED: hydrALAZINE HCL 20 MG/ML VIAL IVPUSH PRN (18:03)
[2018-05-01] MEDS ORDERED: ACETAMINOPHEN 325 MG TABLET (FP) PO ONE (20:15)
[2018-05-01] MEDS: ATORVASTATIN CA 10 MG TABLET (FP) PO SCH (21:32)
[2018-05-02] MEDS: ALBUTEROL SO4 2.5/IPRATROPIUM 0.5 INH SOL 3 ML VIAL.NEB. NEB PRN ×3 (01:11→15:59)
[2018-05-02] MEDS: methylPREDNISolone NA SUCC 40 MG/1 ML VIAL IVPB SCH ×3 (01:23→18:13)
[2018-05-02 06:53] LABS: HEMATOCRIT 44.1 % (32.4-45.2); HEMOGLOBIN 14.5 GM/dL (10.7-15.3); MCH 30.6 pg (25.7-33.7); MCHC 32.9 g/dl (32.0-36.0); MEAN PLT VOLUME 9.4 fl (7.5-11.1); PLATELET COUNT 180 K/MM3 (134-434); RBC 4.74 M/mm3 (3.60-5.2); RDW 13.5 % (11.6-15.6); WHITE BLOOD COUNT 10.8 K/mm3 (4.0-10.0)
[2018-05-02] MEDS: ALBUTEROL SO4 0.083% IH SOL 2.5 MG/3 ML VIAL.NEB. NEB SCH (07:40)
[2018-05-02 08:52] LABS: ALK PHOS 31 U/L (45-117); ANION GAP 8 MMOL/L (8-16); BILIRUBIN,TOTAL 0.4 mg/dL (0.2-1); BLOOD UREA NITROGEN 19 mg/dL (7-18); CALCIUM 9.7 mg/dL (8.5-10.1); CHLORIDE 109 mmol/L (98-107); CO2 32 mmol/L (21-32); CREATININE 0.7 mg/dL (0.55-1.3); GLUCOSE,RANDOM 114 mg/dL (74-106); POTASSIUM 3.5 mmol/L (3.5-5.1); SGOT/AST 4 U/L (15-37); SGPT/ALT 20 U/L (13-61); SODIUM 148 mmol/L (136-145); TOT PROT 6.5 g/dl (6.4-8.2)
[2018-05-02] MEDS: CARVEDILOL 25 MG TABLET (FP) PO SCH ×2 (09:58→21:31)
[2018-05-02] MEDS: ASPIRIN 81 MG CHEWABLE TABLETS PO SCH (09:58)
[2018-05-02] MEDS: amLODIPine BESYLATE 10 MG TABLET (FP) PO SCH (09:58)
[2018-05-02] MEDS: DOCUSATE SODIUM 100 MG CAPSULE (FP) PO SCH (09:58)
[2018-05-02] MEDS: LOSARTAN POTASSIUM 50 MG TABLET (FP) PO SCH (09:58)
[2018-05-02] MEDS: ENOXAPARIN NA (PORCINE) 40 MG/0.4 ML DISP.SYRIN SQ SCH (09:59)
[2018-05-02] MEDS: PANTOPRAZOLE 40 MG TABLET (FP) PO SCH (09:59)
[2018-05-02] MEDS: NICOTINE 14 MG/24 HOURS TOPICAL PATCH TD SCH (09:59)
[2018-05-02] MEDS: BUDESONIDE/FORMETEROL FUMARATE 80/4.5 mcg INHALER IH SCH ×2 (10:00→21:31)
[2018-05-02] MEDS: TIOTROPIUM BROMIDE 2.5 MCG (SPIRIVA) RESPIMAT INHALER IH SCH (10:00)
--- NOTE | 2018-05-02 10:43 | PN ---
Progress Note, Physician History of Present Illness: pulmonary alert,c/o sob, cough + occ blood streaked sputum - Current Medication List Current Medications: Active Medications Albuterol Sulfate (Ventolin 0.083% Nebulizer Soln -) 1 amp NEB RQID [facility] Last Admin: 05/02/18 07:40 Dose: 1 amp Amlodipine Besylate (Norvasc -) 10 mg PO DAILY [facility] Last Admin: 05/02/18 09:58 Dose: 10 mg Aspirin (Asa -) 81 mg PO DAILY [facility] Last Admin: 05/02/18 09:58 Dose: 81 mg Atorvastatin Calcium (Lipitor -) 10 mg PO HS [facility] Last Admin: 05/01/18 21:32 Dose: 10 mg Budesonide/Formoterol Fumarate (Symbicort 80/4.5mcg -) 2 puff IH BID [facility] Last Admin: 05/02/18 10:00 Dose: 2 puff Carvedilol (Coreg -) 25 mg PO BID [facility] Last Admin: 05/02/18 09:58 Dose: 25 mg Docusate Sodium (Colace -) 100 mg PO DAILY [facility] Last Admin: 05/02/18 09:58 Dose: 100 mg Enoxaparin Sodium (Lovenox -) 40 mg SQ DAILY [facility] Last Admin: 05/02/18 09:59 Dose: 40 mg Hydralazine HCl (Apresoline Injection -) 5 mg IVPUSH Q8H PRN PRN Reason: HYPERTENSION Labetalol HCl (Normodyne Injection -) 5 mg IVPUSH Q4H PRN PRN Reason: HYPERTENSION Losartan Potassium (Cozaar -) 100 mg PO DAILY [facility] Last Admin: 05/02/18 09:58 Dose: 100 mg Methylprednisolone Sodium Succinate (Solu-Medrol -) 40 mg IVPB Q8H-IV [facility] Last Admin: 05/02/18 09:59 Dose: 40 mg Nicotine (Nicoderm Patch -) 14 mg TD DAILY [facility] Last Admin: 05/02/18 09:59 Dose: 14 mg Ondansetron HCl (Zofran Injection) 4 mg IVPUSH Q6H PRN PRN Reason: NAUSEA Pantoprazole Sodium (Protonix -) 40 mg PO DAILY [facility] Last Admin: 05/02/18 09:59 Dose: 40 mg Tiotropium [place] (Spiriva Respimat) 2 puff IH DAILY [facility] Last Admin: 05/02/18 10:00 Dose: 2 puff - Objective Vital Signs: Vital Signs Temperature 97.8 F 05/02/18 05:00 Pulse Rate 67 05/02/18 05:00 Respiratory Rate 19 05/02/18 05:00 Blood Pressure 145/71 05/02/18 05:00 O2 Sat by Pulse Oximetry (%) 98 05/01/18 21:00 Constitutional: Yes: Well Nourished, Calm Eyes: Yes: WNL HENT: Yes: WNL Neck: Yes: WNL Cardiovascular: Yes: Regular Rate and Rhythm, S1, S2 Respiratory: Yes: Wheezes (few wheezes) Gastrointestinal: Yes: Normal Bowel Sounds, Soft Extremities: Yes: WNL Edema: No Labs: CBC, BMP 05/02/18 05:30 05/02/18 05:30 Assessment/Plan Problem List - Problems (1) COPD (chronic obstructive pulmonary disease) Code(s): J44.9 - CHRONIC OBSTRUCTIVE PULMONARY DISEASE, UNSPECIFIED (2) Dyspnea Code(s): R06.00 - DYSPNEA, UNSPECIFIED Qualifiers: Dyspnea type: shortness of breath Qualified Code(s): R06.02 - Shortness of breath; R06.00 - Dyspnea, unspecified; R06.01 - Orthopnea (3) Cough Code(s): R05 - COUGH (4) Diarrhea Code(s): R19.7 - DIARRHEA, UNSPECIFIED Qualifiers: Diarrhea type: unspecified type Qualified Code(s): R19.7 - Diarrhea, unspecified (5) Hypertension Code(s): I10 - ESSENTIAL (PRIMARY) HYPERTENSION (6) Asthma Code(s): J45.909 - UNSPECIFIED ASTHMA, UNCOMPLICATED HEMOPTYSIS Assessment/Plan ACUTE BRONCHITIS SUPERIMPOSED UPON COPD WITH BRONCHOSPASTIC COMPONENT HTN HPL GERD HEMOPTYSIS O2 SUPPLEMENTATION BRONCHODILATORS STEROIDS ANTIBIOTICS MONITOR DIARRHEA CHEST CT DR CUNHA
--- NOTE | 2018-05-02 13:00 | PN ---
Physical Exam: SUBJECTIVE: Patient seen and examined at bedside this morning. Admits improvement of shortness of breath. Endorses that she was able to walk to the nurse's station and back, markedly improved from admission. Denies fevers, chills, chest pain palpitations, abdominal pain, nausea, vomiting. OBJECTIVE: Vital Signs Period Temp Pulse Resp BP Sys/[place]ulkner Pulse Ox Last 24 Hr 97.8 F-98.4 F 67-79 19-20 145-185/71-105 98 GENERAL: The patient is awake, alert, and fully oriented, in mild distress. Obese female, appears stated age. HEAD: Normal with no signs of trauma. EYES: PERRL, extraocular movements intact, sclera anicteric, conjunctiva clear. ENT: Oropharynx erythematous, without exudates. Moist mucous membranes. NECK: Trachea midline, Supple with b/l lymphadenopathy. LUNGS: Breath sounds equal, with expiratory wheezes and faint crackles auscultated bilaterally. No accessory muscle use. HEART: Regular rate and rhythm, S1, S2 without murmur, rub or gallop. ABDOMEN: obese, soft, nontender. Normoactive bowel sounds x4 quadrants. No guarding, no rebound tenderness. No hepatosplenomegaly appreciated. EXTREMITIES: 2+ radial and dorsalis pedis pulses b/l. Warm. 2+ pitting edema right leg, 1+ pitting edema left leg. NEUROLOGICAL: Cranial nerves II through XII grossly intact. Normal speech, strength 5/5 b/l upper and lower extremities. PSYCH: Normal mood, normal affect upon my encounter today. SKIN: Warm, dry. Laboratory Results - last 24 hr 05/02/18 05/02/18 05:30 05:30 WBC 10.8 H RBC 4.74 Hgb 14.5 Hct 44.1 MCV 93.0 MCH 30.6 MCHC 32.9 RDW 13.5 Plt Count 180 MPV 9.4 Sodium 148 H Potassium 3.5 Chloride 109 H Carbon Dioxide 32 Anion Gap 8 BUN 19 H Creatinine 0.7 Creat Clearance w eGFR > 60 Random Glucose 114 H Calcium 9.7 Total Bilirubin 0.4 AST 4 L ALT 20 Alkaline Phosphatase 31 L Total Protein 6.5 Albumin 3.0 L Active Medications Generic Name Dose Route Start Last Admin Trade Name Freq PRN Reason Stop Dose Admin Albuterol/Ipratropium 1 amp 05/02/18 12:13 Duoneb - NEB Q4H PRN S.O.B Amlodipine Besylate 10 mg 04/27/18 10:00 05/02/18 09:58 Norvasc - PO 10 mg DAILY I[facility] Administration Aspirin 81 mg 04/27/18 10:00 05/02/18 09:58 Asa - PO 81 mg DAILY [facility] Administration Atorvastatin Calcium 10 mg 04/27/18 22:00 05/01/18 21:32 Lipitor - PO 10 mg HS [facility] Administration Budesonide/Formoterol Fumarate 2 puff 04/27/18 10:00 05/02/18 10:00 Symbicort 80/4.5mcg - IH 2 puff BID [facility]Y Administration Carvedilol 25 mg 04/30/18 12:01 05/02/18 09:58 Coreg - PO 25 mg BID [facility] Administration Docusate Sodium 100 mg 04/30/18 10:00 05/02/18 09:58 Colace - PO 100 mg DAILY [facility] Administration Enoxaparin Sodium 40 mg 04/26/18 22:00 05/02/18 09:59 Lovenox - SQ 40 mg DAILY [facility] Administration Hydralazine HCl 5 mg 05/01/18 18:03 Apresoline Injection - IVPUSH Q8H PRN HYPERTENSION Labetalol HCl 5 mg 05/01/18 16:45 Normodyne Injection - IVPUSH Q4H PRN HYPERTENSION Losartan Potassium 100 mg 04/27/18 10:00 05/02/18 09:58 Cozaar - PO 100 mg DAILY [facility] Administration Methylprednisolone Sodium Succinate 40 mg 05/01/18 18:00 05/02/18 09:59 Solu-Medrol - IVPB 40 mg Q8H-IV [facility] Administration Nicotine 14 mg 04/27/18 10:00 05/02/18 09:59 Nicoderm Patch - TD 14 mg DAILY [facility] Administration Ondansetron HCl 4 mg 04/26/18 21:40 Zofran Injection IVPUSH Q6H PRN NAUSEA Pantoprazole Sodium 40 mg 04/28/18 10:45 05/02/18 09:59 Protonix - PO 40 mg DAILY [facility] Administration Tiotropium [place] 2 puff 04/28/18 10:45 05/02/18 10:00 Spiriva Respimat IH 2 puff DAILY [facility] Administration ASSESSMENT/PLAN: Patient is a 57 year old female with history of asthma, hypertension, hyperlipidemia, presents with complaint of fevers, chills, malaise, cough, shortness of breath, chest pain, nausea, one episode of NBNB vomiting, and one episode of bowel and urinary incontinence. Severe, persistent asthma exacerbation -Pulmonary (Dr. Hernandez) consult appreciated -Solumedrol 40mg Q8H -Albuterol nebulizer QID standing -Duonebs Q4H PRN -Symbicort 2 puffs IH BID -Spiriva 2 puffs ID daily -F/U CT chest Gastroenteritis -Improved. Likely secondary to viral vs bacterial syndrome -Zofran 4mg IV Q6H PRN for nausea -Stool studies negative for Salmonella, Campylobacter, Yersenia, Vibrio, E. coli , C. diff toxin and antigen Chest pain -Resolved. Likely musculoskeletal as pain reproducible with palpation, exacerbated with cough. -EKG showed normal sinus rhythm at 90 bpm. -Troponins negative at 0.02 X2 Hypertension Reinstate home medications: -Losartan 100mg PO daily -Carvedilol 12.5 mg increased to 25mg PO dialy -Norvasc 10mg PO daily -Hydralazine 5mg IV Q8H if systolic BP greater than 170mmHg, or diastolic BP greater than 105mmHg Hyperlipidemia -Lipitor 10mg QHS Nicotine dependence -Patient endorses that she is current smoker, and would like help quitting smoking cigarettes -Nicotine patch 14mg TD daily FEN -No IV fluids -Follow CMP -Cholesterol, fat, sodium restricted diet. Prophylaxis -Lovenox 40mg subq daily Disposition -Continue care in medical-surgical floor. Visit type - Emergency Visit Emergency Visit: Yes ED Registration Date: 04/28/18 Care time: The patient presented to the Emergency Department on the above date and was hospitalized for further evaluation of their emergent condition. - New Patient This patient is new to me today: No - Critical Care Critical Care patient: No - Discharge Referral Referred to [facility] No
--- NOTE | 2018-05-02 14:14 | PN ---
Teaching Attending Note Name of Resident: Josh Schmidt ATTENDING PHYSICIAN STATEMENT I saw and evaluated the patient. I reviewed the resident's note and discussed the case with the resident. I agree with the resident's findings and plan as documented. SUBJECTIVE: Patient is feeling better but continues to have shortness of breath. OBJECTIVE: Vital Signs Temperature 97.8 F 05/02/18 05:00 Pulse Rate 67 05/02/18 05:00 Respiratory Rate 19 05/02/18 05:00 Blood Pressure 145/71 05/02/18 05:00 O2 Sat by Pulse Oximetry (%) 98 05/01/18 21:00 GENERAL: The patient is awake, alert, and fully oriented, in mild distress. HEAD: Normal with no signs of trauma. EYES: PERRL, extraocular movements intact, sclera anicteric, conjunctiva clear. ENT: Oropharynx erythematous, without exudates. Moist mucous membranes. NECK: Trachea midline, Supple with b/l lymphadenopathy. LUNGS: Breath sounds equal, with expiratory wheezes bilaterally. HEART: Regular rate and rhythm, S1, S2 without murmur, rub or gallop. ABDOMEN: obese, soft, nontender. Normoactive bowel sounds . No guarding, no rebound tenderness. EXTREMITIES: 2+ radial and dorsalis pedis pulses b/l. Warm. 2+ pitting edema right leg, 1+ pitting edema left leg. NEUROLOGICAL: Cranial nerves II through XII grossly intact. Normal speech. PSYCH: Normal mood. SKIN: Warm, dry. CBCD WBC 10.8 K/mm3 (4.0-10.0) H 05/02/18 05:30 RBC 4.74 M/mm3 (3.60-5.2) 05/02/18 05:30 Hgb 14.5 GM/dL (10.7-15.3) 05/02/18 05:30 Hct 44.1 % (32.4-45.2) 05/02/18 05:30 MCV 93.0 fl (80-96) 05/02/18 05:30 MCHC 32.9 g/dl (32.0-36.0) 05/02/18 05:30 RDW 13.5 % (11.6-15.6) 05/02/18 05:30 Plt Count 180 K/MM3 (134-434) 05/02/18 05:30 MPV 9.4 fl (7.5-11.1) 05/02/18 05:30 CMP Sodium 148 mmol/L (136-145) H 05/02/18 05:30 Potassium 3.5 mmol/L (3.5-5.1) 05/02/18 05:30 Chloride 109 mmol/L (98-107) H 05/02/18 05:30 Carbon Dioxide 32 mmol/L (21-32) 05/02/18 05:30 Anion Gap 8 MMOL/L (8-16) 05/02/18 05:30 BUN 19 mg/dL (7-18) H 05/02/18 05:30 Creatinine 0.7 mg/dL (0.55-1.3) 05/02/18 05:30 Creat Clearance w eGFR > 60 (>60) 05/02/18 05:30 Random Glucose 114 mg/dL (74-106) H 05/02/18 05:30 Calcium 9.7 mg/dL (8.5-10.1) 05/02/18 05:30 Total Bilirubin 0.4 mg/dL (0.2-1) 05/02/18 05:30 AST 4 U/L (15-37) L 05/02/18 05:30 ALT 20 U/L (13-61) 05/02/18 05:30 Alkaline Phosphatase 31 U/L (45-117) L 05/02/18 05:30 Total Protein 6.5 g/dl (6.4-8.2) 05/02/18 05:30 Albumin 3.0 g/dl (3.4-5.0) L 05/02/18 05:30 CARDIAC ENZYMES Creatine Kinase 110 IU/L (26-192) 04/26/18 17:05 Troponin I < 0.02 ng/ml (0.00-0.05) 04/27/18 06:49 Current Medications Generic Name Dose Route Start Last Admin Trade Name Freq PRN Reason Stop Dose Admin Albuterol/Ipratropium 1 amp 05/02/18 12:13 Duoneb - NEB Q4H PRN S.O.B Amlodipine Besylate 10 mg 04/27/18 10:00 05/02/18 09:58 Norvasc - PO 10 mg DAILY [facility] Administration Aspirin 81 mg 04/27/18 10:00 05/02/18 09:58 Asa - PO 81 mg DAILY [facility] Administration Atorvastatin Calcium 10 mg 04/27/18 22:00 05/01/18 21:32 Lipitor - PO 10 mg HS [facility] Administration Budesonide/Formoterol Fumarate 2 puff 04/27/18 10:00 05/02/18 10:00 Symbicort 80/4.5mcg - IH 2 puff BID [facility]Y Administration Carvedilol 25 mg 04/30/18 12:01 05/02/18 09:58 Coreg - PO 25 mg BID [facility] Administration Docusate Sodium 100 mg 04/30/18 10:00 05/02/18 09:58 Colace - PO 100 mg DAILY [facility] Administration Enoxaparin Sodium 40 mg 04/26/18 22:00 05/02/18 09:59 Lovenox - SQ 40 mg DAILY [facility] Administration Hydralazine HCl 5 mg 05/01/18 18:03 Apresoline Injection - IVPUSH Q8H PRN HYPERTENSION Labetalol HCl 5 mg 05/01/18 16:45 Normodyne Injection - IVPUSH Q4H PRN HYPERTENSION Losartan Potassium 100 mg 04/27/18 10:00 05/02/18 09:58 Cozaar - PO 100 mg DAILY [facility] Administration Methylprednisolone Sodium Succinate 40 mg 05/01/18 18:00 05/02/18 09:59 Solu-Medrol - IVPB 40 mg Q8H-IV [facility] Administration Nicotine 14 mg 04/27/18 10:00 05/02/18 09:59 Nicoderm Patch - TD 14 mg DAILY [facility] Administration Ondansetron HCl 4 mg 04/26/18 21:40 Zofran Injection IVPUSH Q6H PRN NAUSEA Pantoprazole Sodium 40 mg 04/28/18 10:45 05/02/18 09:59 Protonix - PO 40 mg DAILY [facility] Administration Tiotropium [place] 2 puff 04/28/18 10:45 05/02/18 10:00 Spiriva Respimat IH 2 puff DAILY [facility] Administration Home Medications Medication Instructions Recorded Pravastatin Sodium [Pravachol -] 40 mg PO DAILY 07/12/15 Amlodipine Besylate [Norvasc -] 10 mg PO DAILY #30 tablet 10/16/15 Carvedilol 12.5 mg PO BID 06/29/18 Albuterol 0.083% Nebulizer [place] 1 neb NEB Q4H #30 vial 03/22/18 [Ventolin 0.083% Nebulizer Soln -] Aspirin 81 mg PO DAILY 04/26/18 Losartan Potassium 100 mg PO DAILY 04/26/18 ASSESSMENT AND PLAN: Patient is a 57 y/o lady with h/o asthma, HTN , HLP who presented with SOB and stool incontinence and was found to have acute asthma exacerbation # Acute Asthma exacerbation: improving daily peak flow , continue IV solu- Medrol. 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 likely due to steroids. # Stool incontinence: in setting of cough . resolved . now constipated , bowel regimen # HTN : cont norvasc and losartan and coreg , will continue to taper steroid DVT Px: Lovenox PT eval
[2018-05-02] MEDS ORDERED: SODIUM CHLORIDE NASAL SPRAY 44 ML BOTTLE NS PRN (16:42)
[2018-05-02] MEDS: ATORVASTATIN CA 10 MG TABLET (FP) PO SCH (21:31)
[2018-05-03] MEDS: ALBUTEROL SO4 2.5/IPRATROPIUM 0.5 INH SOL 3 ML VIAL.NEB. NEB PRN ×3 (00:30→16:19)
[2018-05-03] MEDS: methylPREDNISolone NA SUCC 40 MG/1 ML VIAL IVPB SCH ×2 (01:34→10:55)
[2018-05-03 06:42] LABS: HEMATOCRIT 46.1 % (32.4-45.2); HEMOGLOBIN 14.6 GM/dL (10.7-15.3); MCH 29.3 pg (25.7-33.7); MCHC 31.6 g/dl (32.0-36.0); MEAN CELL VOLUME 92.9 fl (80-96); MEAN PLT VOLUME 9.2 fl (7.5-11.1); PLATELET COUNT 189 K/MM3 (134-434); RBC 4.96 M/mm3 (3.60-5.2); RDW 13.9 % (11.6-15.6)
[2018-05-03 06:52] LABS: ANION GAP 5 MMOL/L (8-16); BLOOD UREA NITROGEN 22 mg/dL (7-18); CHLORIDE 107 mmol/L (98-107); CO2 33 mmol/L (21-32); CREATININE 0.7 mg/dL (0.55-1.3); GLUCOSE,RANDOM 152 mg/dL (74-106); POTASSIUM 3.4 mmol/L (3.5-5.1); SODIUM 146 mmol/L (136-145)
[2018-05-03] MEDS: LOSARTAN POTASSIUM 50 MG TABLET (FP) PO SCH (10:49)
[2018-05-03] MEDS: CARVEDILOL 25 MG TABLET (FP) PO SCH (10:49)
[2018-05-03] MEDS: ASPIRIN 81 MG CHEWABLE TABLETS PO SCH (10:49)
[2018-05-03] MEDS: DOCUSATE SODIUM 100 MG CAPSULE (FP) PO SCH (10:49)
[2018-05-03] MEDS: amLODIPine BESYLATE 10 MG TABLET (FP) PO SCH (10:50)
[2018-05-03] MEDS: PANTOPRAZOLE 40 MG TABLET (FP) PO SCH (10:50)
--- NOTE | 2018-05-03 10:50 | PN ---
Progress Note, Physician History of Present Illness: PULMPONARY ALERT,NO DISTRESS,-SOB,-COUGH - Current Medication List Current Medications: Active Medications Albuterol/Ipratropium (Duoneb -) 1 amp NEB Q4H PRN PRN Reason: S.O.B Last Admin: 05/03/18 00:30 Dose: 1 amp Amlodipine Besylate (Norvasc -) 10 mg PO DAILY [facility] Last Admin: 05/02/18 09:58 Dose: 10 mg Aspirin (Asa -) 81 mg PO DAILY [facility] Last Admin: 05/02/18 09:58 Dose: 81 mg Atorvastatin Calcium (Lipitor -) 10 mg PO HS [facility] Last Admin: 05/02/18 21:31 Dose: 10 mg Budesonide/Formoterol Fumarate (Symbicort 80/4.5mcg -) 2 puff IH BID [facility] Last Admin: 05/02/18 21:31 Dose: 2 puff Carvedilol (Coreg -) 25 mg PO BID [facility] Last Admin: 05/02/18 21:31 Dose: 25 mg Docusate Sodium (Colace -) 100 mg PO DAILY [facility] Last Admin: 05/02/18 09:58 Dose: 100 mg Enoxaparin Sodium (Lovenox -) 40 mg SQ DAILY [facility] Last Admin: 05/02/18 09:59 Dose: 40 mg Hydralazine HCl (Apresoline Injection -) 5 mg IVPUSH Q8H PRN PRN Reason: HYPERTENSION Labetalol HCl (Normodyne Injection -) 5 mg IVPUSH Q4H PRN PRN Reason: HYPERTENSION Losartan Potassium (Cozaar -) 100 mg PO DAILY [facility] Last Admin: 05/02/18 09:58 Dose: 100 mg Methylprednisolone Sodium Succinate (Solu-Medrol -) 40 mg IVPB Q8H-IV [facility] Last Admin: 05/03/18 01:34 Dose: 40 mg Nicotine (Nicoderm Patch -) 14 mg TD DAILY [facility] Last Admin: 05/02/18 09:59 Dose: 14 mg Ondansetron HCl (Zofran Injection) 4 mg IVPUSH Q6H PRN PRN Reason: NAUSEA Pantoprazole Sodium (Protonix -) 40 mg PO DAILY [facility] Last Admin: 05/02/18 09:59 Dose: 40 mg Sodium Chloride ([place] Nasal [place] -) 2 spray NS Q8H PRN PRN Reason: NASAL CONGESTION Tiotropium [place] (Spiriva Respimat) 2 puff IH DAILY [facility] Last Admin: 05/02/18 10:00 Dose: 2 puff - Objective Vital Signs: Vital Signs Temperature 98.8 F 05/03/18 05:00 Pulse Rate 70 05/03/18 05:00 Respiratory Rate 18 05/03/18 05:00 Blood Pressure 146/69 05/03/18 05:00 O2 Sat by Pulse Oximetry (%) 97 05/02/18 21:00 Constitutional: Yes: Well Nourished, Calm Eyes: Yes: WNL HENT: Yes: WNL Neck: Yes: WNL Cardiovascular: Yes: Regular Rate and Rhythm, S1, S2 Respiratory: Yes: CTA Bilaterally Gastrointestinal: Yes: Normal Bowel Sounds, Soft Extremities: Yes: WNL Edema: No Labs: CBC, BMP 05/03/18 05:30 05/03/18 05:30 Assessment/Plan Problem List - Problems (1) COPD (chronic obstructive pulmonary disease) Code(s): J44.9 - CHRONIC OBSTRUCTIVE PULMONARY DISEASE, UNSPECIFIED (2) Dyspnea Code(s): R06.00 - DYSPNEA, UNSPECIFIED Qualifiers: Dyspnea type: shortness of breath Qualified Code(s): R06.02 - Shortness of breath; R06.00 - Dyspnea, unspecified; R06.01 - Orthopnea (3) Cough Code(s): R05 - COUGH (4) Diarrhea Code(s): R19.7 - DIARRHEA, UNSPECIFIED Qualifiers: Diarrhea type: unspecified type Qualified Code(s): R19.7 - Diarrhea, unspecified (5) Hypertension Code(s): I10 - ESSENTIAL (PRIMARY) HYPERTENSION (6) Asthma Code(s): J45.909 - UNSPECIFIED ASTHMA, UNCOMPLICATED HEMOPTYSIS Assessment/Plan ACUTE BRONCHITIS SUPERIMPOSED UPON COPD WITH BRONCHOSPASTIC COMPONENT improved HTN HPL GERD HEMOPTYSIS RESOLVED O2 SUPPLEMENTATION BRONCHODILATORS PREDNISONE 60mg PO DAILY WITH TAPER ANTIBIOTICS PFTS OUTPATIENT DR CUNHA
[2018-05-03] MEDS: ENOXAPARIN NA (PORCINE) 40 MG/0.4 ML DISP.SYRIN SQ SCH (10:52)
[2018-05-03] MEDS: NICOTINE 14 MG/24 HOURS TOPICAL PATCH TD SCH (10:55)
[2018-05-03] MEDS: TIOTROPIUM BROMIDE 2.5 MCG (SPIRIVA) RESPIMAT INHALER IH SCH (10:55)
[2018-05-03] MEDS: BUDESONIDE/FORMETEROL FUMARATE 80/4.5 mcg INHALER IH SCH (10:56)
[2018-05-03 14:19] VITALS: BP 151/75; PULSE 79; TEMP 98.2
[2018-05-03] MEDS ORDERED: POTASSIUM CHLORIDE TABS 20 MEQ TABLET.ER (FP) PO ONE (15:00)
--- NOTE | 2018-05-03 16:14 | DS ---
Physical Exam: SUBJECTIVE: Patient seen and examined at bedside this morning. Admits improvement of shortness of breath. Endorses that she feels back to her baseline. Denies fevers, chills, chest pain palpitations, abdominal pain, nausea , vomiting. OBJECTIVE: Vital Signs Period Temp Pulse Resp BP Sys/Faulkner Pulse Ox Last 24 Hr 98.1 F-98.8 F 70-83 18-20 146-154/69-88 97-98 PHYSICAL EXAM GENERAL: The patient is awake, alert, and fully oriented, in mild distress. Obese female, appears stated age. HEAD: Normal with no signs of trauma. EYES: PERRL, extraocular movements intact, sclera anicteric, conjunctiva clear. ENT: Oropharynx erythematous, without exudates. Moist mucous membranes. NECK: Trachea midline, Supple with b/l lymphadenopathy. LUNGS: Breath sounds equal, with expiratory wheezes and faint crackles auscultated bilaterally. No accessory muscle use. HEART: Regular rate and rhythm, S1, S2 without murmur, rub or gallop. ABDOMEN: obese, soft, nontender. Normoactive bowel sounds x4 quadrants. No guarding, no rebound tenderness. No hepatosplenomegaly appreciated. EXTREMITIES: 2+ radial and dorsalis pedis pulses b/l. Warm. 2+ pitting edema right leg, 1+ pitting edema left leg. NEUROLOGICAL: Cranial nerves II through XII grossly intact. Normal speech, strength 5/5 b/l upper and lower extremities. PSYCH: Normal mood, normal affect upon my encounter today. SKIN: Warm, dry. LABS Laboratory Results - last 24 hr 05/03/18 05/03/18 05:30 05:30 WBC 13.0 H RBC 4.96 Hgb 14.6 Hct 46.1 H MCV 92.9 MCH 29.3 MCHC 31.6 L RDW 13.9 Plt Count 189 MPV 9.2 Sodium 146 H Potassium 3.4 L Chloride 107 Carbon Dioxide 33 H Anion Gap 5 L BUN 22 H Creatinine 0.7 Creat Clearance w eGFR > 60 Random Glucose 152 H Calcium 9.0 HOSPITAL COURSE: Date of Admission:04/28/18 Date of Discharge: 05/03/18 Patient is a 57 year old female with history of asthma, hypertension, hyperlipidemia, presents with complaint of fevers, chills, malaise, cough, shortness of breath, chest pain, nausea, one episode of NBNB vomiting, and one episode of bowel and urinary incontinence. Started on Solumedrol, Albuterol nebulizer, Duonebs, Symbicort, Spiriva with plmonology recommendation. Zofran was given for nausea. She endorsed no further episodes of diarrhea or incontinence. Chest pain likely musculoskeletal as pain was reproducible with palpation, and exacerbated with cough. Resolved during hospitalization. Coreg dose increased for BP control. Her breathing improved and she was discharged home with home oxygen, to follow up with primary care physician within one week of discharge, in addition to director hair. Minutes to complete discharge: 35 Discharge Summary Reason For Visit: CHEST PAIN AT REST,DYSPNEA Current Active Problems Asthma (Acute) COPD (chronic obstructive pulmonary disease) (Acute) Chest pain at rest (Acute) Dyspnea (Acute) Condition: Stable - Instructions Diet, Activity, Other Instructions: You were admitted with shortness of breath and treated with oxygen, steroids, and nebulizer treatment. You are being discharged with steroid taper. Continue taking Prednisone taper for the next 12 days. Continue taking your home medications as directed. You will receive home oxygen. Take albuterol nebulizer as needed every 6 hours for shortness of breath. In addition, you can alternate treatment with Duonebs every 4 hours as needed for shortness of breath. Take Symbicort 2 puffs inhaled every 12 hours Take Spiriva 2 puffs inhaled daily We have increased your Carvedliol to 25mg daily. It is important that you follow up with your primary care physician within the next two-three days. Further, follow up with director hair (lung doctor, Dr. Hernandez) within one week of discharge. Please return to the nearest emergency department if you experience fevers, chills, worsening shortness of breath, chest pain, palpitations, vomiting, continued diarrhea, fall, loss of consciousness. Referrals: Neeraj Hernandez MD [Staff Physician] - Shannan Bloom [Primary Care Provider] - Disposition: HOME - Home Medications Comprehensive Discharge Medication List: Ambulatory Orders Pravastatin Sodium [Pravachol -] 40 mg PO DAILY 07/12/15 Amlodipine Besylate [Norvasc -] 10 mg PO DAILY #30 tablet 10/16/15 Albuterol 0.083% Nebulizer Nuris [Ventolin 0.083% Nebulizer Soln -] 1 neb NEB Q4H #30 vial 03/22/18 Aspirin 81 mg PO DAILY 04/26/18 Losartan Potassium 100 mg PO DAILY 04/26/18 Albuterol 2.5/Ipratropium 0.5 [Duoneb -] 1 amp NEB Q4H PRN 5 Days #30 amp Budesonide/Formeterol Fumarate [SYMBICORT 80/4.5mcg -] 2 puff IH BID 30 Days #1 inhaler 05/03/18 Carvedilol [Coreg -] 25 mg PO BID tablet 05/03/18 Prednisone See Taper PO ASDIR 12 Days #39 tablet 05/03/18 Tiotropium [place] [Spiriva Respimat] 2 puff IH DAILY 30 Days #1 inhaler This patient is new to me today: No Emergency Visit: Yes ED Registration Date: 04/28/18 Care time: The patient presented to the Emergency Department on the above date and was hospitalized for further evaluation of their emergent condition. Critical Care patient: No - Discharge Referral Referred to [facility] Med P.C.: No
--- NOTE | 2018-05-03 18:40 | PN ---
Teaching Attending Note Name of Resident: Josh Schmidt ATTENDING PHYSICIAN STATEMENT I saw and evaluated the patient. I reviewed the resident's note and discussed the case with the resident. I agree with the resident's findings and plan as documented. SUBJECTIVE: Patient is feeling better with no acute distress. OBJECTIVE: Vital Signs Temperature 98.2 F 05/03/18 14:00 Pulse Rate 79 05/03/18 14:00 Respiratory Rate 20 05/03/18 14:00 Blood Pressure 151/75 05/03/18 14:00 O2 Sat by Pulse Oximetry (%) 98 05/03/18 09:00 GENERAL: The patient is awake, alert, and fully oriented, in mild distress. HEAD: Normal with no signs of trauma. EYES: PERRL, extraocular movements intact, sclera anicteric, conjunctiva clear. ENT: Oropharynx erythematous, without exudates. Moist mucous membranes. NECK: Trachea midline, Supple with b/l lymphadenopathy. LUNGS: Breath sounds equal, no wheeze . HEART: Regular rate and rhythm, S1, S2 without murmur, rub or gallop. ABDOMEN: obese, soft, nontender. Normoactive bowel sounds . No guarding, no rebound tenderness. EXTREMITIES: pulses are positive, trace edema bl NEUROLOGICAL: Cranial nerves II through XII grossly intact. Normal speech. SKIN: Warm, dry. WBC 13.0 K/mm3 (4.0-10.0) H 05/03/18 05:30 RBC 4.96 M/mm3 (3.60-5.2) 05/03/18 05:30 Hgb 14.6 GM/dL (10.7-15.3) 05/03/18 05:30 Hct 46.1 % (32.4-45.2) H 05/03/18 05:30 MCV 92.9 fl (80-96) 05/03/18 05:30 MCHC 31.6 g/dl (32.0-36.0) L 05/03/18 05:30 RDW 13.9 % (11.6-15.6) 05/03/18 05:30 Plt Count 189 K/MM3 (134-434) 05/03/18 05:30 MPV 9.2 fl (7.5-11.1) 05/03/18 05:30 CMP Sodium 146 mmol/L (136-145) H 05/03/18 05:30 Potassium 3.4 mmol/L (3.5-5.1) L 05/03/18 05:30 Chloride 107 mmol/L (98-107) 05/03/18 05:30 Carbon Dioxide 33 mmol/L (21-32) H 05/03/18 05:30 Anion Gap 5 MMOL/L (8-16) L 05/03/18 05:30 BUN 22 mg/dL (7-18) H 05/03/18 05:30 Creatinine 0.7 mg/dL (0.55-1.3) 05/03/18 05:30 Creat Clearance w eGFR > 60 (>60) 05/03/18 05:30 Random Glucose 152 mg/dL (74-106) H 05/03/18 05:30 Calcium 9.0 mg/dL (8.5-10.1) 05/03/18 05:30 Total Bilirubin 0.4 mg/dL (0.2-1) 05/02/18 05:30 AST 4 U/L (15-37) L 05/02/18 05:30 ALT 20 U/L (13-61) 05/02/18 05:30 Alkaline Phosphatase 31 U/L (45-117) L 05/02/18 05:30 Total Protein 6.5 g/dl (6.4-8.2) 05/02/18 05:30 Albumin 3.0 g/dl (3.4-5.0) L 05/02/18 05:30 CARDIAC ENZYMES Creatine Kinase 110 IU/L (26-192) 04/26/18 17:05 Troponin I < 0.02 ng/ml (0.00-0.05) 04/27/18 06:49 Home Medications Medication Instructions Recorded Pravastatin Sodium [Pravachol -] 40 mg PO DAILY 07/12/15 Amlodipine Besylate [Norvasc -] 10 mg PO DAILY #30 tablet 10/16/15 Albuterol 0.083% Nebulizer Nuris 1 neb NEB Q4H #30 vial 03/22/18 [Ventolin 0.083% Nebulizer Soln -] Aspirin 81 mg PO DAILY 04/26/18 Losartan Potassium 100 mg PO DAILY 04/26/18 Albuterol 2.5/Ipratropium 0.5 1 amp NEB Q4H PRN 5 Days #30 amp 05/03/18 [Duoneb -] Budesonide/Formeterol Fumarate 2 puff IH BID 30 Days #1 inhaler 05/03/18 [SYMBICORT 80/4.5mcg -] Carvedilol [Coreg -] 25 mg PO BID tablet 05/03/18 Prednisone See Taper PO ASDIR 12 Days #39 05/03/18 tablet Tiotropium [place] [Spiriva 2 puff IH DAILY 30 Days #1 inhaler 05/03/18 Respimat] ASSESSMENT AND PLAN: Patient is a 57 y/o lady with h/o asthma, HTN , HLP who presented with SOB and stool incontinence and was found to have acute asthma exacerbation # Acute Asthma exacerbation: improved, will discharge the patient home on oral steroid. 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 # HTN : is better controlled cont norvasc and losartan and coreg. will discharge the patient home, discussed with pulabilio almanza to discharge patient home on taper dose steroid.
== END 2018-05-03 16:55 | disposition home or self-care (01) | DRG 202 ==
LOC: JER 16:19 → JERBED 20:05 → J4W 04-27 14:29 → OBSVTOIN 04-28 16:10
PROVIDERS: ADMIT Internal Medicine; ATTEND Internal Medicine
DX: J45.51 Severe persistent asthma with (acute) exacerbation (principal); G72.0 Drug-induced myopathy; J44.0 Chronic obstructive pulmonary disease with (acute) lower respiratory infection; J20.9 Acute bronchitis, unspecified; E78.5 Hyperlipidemia, unspecified; F17.200 Nicotine dependence, unspecified, uncomplicated; E66.9 Obesity, unspecified; Z68.36 Body mass index [BMI] 36.0-36.9, adult; K21.9 Gastro-esophageal reflux disease without esophagitis; I10 Essential (primary) hypertension; R32 Unspecified urinary incontinence; E87.6 Hypokalemia; K52.9 Noninfective gastroenteritis and colitis, unspecified; R11.2 Nausea with vomiting, unspecified; R07.89 Other chest pain; R15.9 Full incontinence of feces; D72.829 Elevated white blood cell count, unspecified; T38.0X5A Adverse effect of glucocorticoids and synthetic analogues, initial encounter; F17.210 Nicotine dependence, cigarettes, uncomplicated
CPT/HCPCS: 36415; 36600; 71045-TC-FY; 71250-TC; 76705-TC; 80048; 80053; 81003; 82550; 82803; 83735; 84100; 84484; 85025; 85027; 87045; 87046; 87070; 87324; 87420; 87430; 87449; 87804; 93005; 93010; 93971-TC; 94010; 94150; 94640; 94761; 97116-GP; 97161-GP; 99285-25; G0378; J7030; J7620

== ENCOUNTER 2018-09-08 08:51 | Emergency (ER) | payer OTHER ==
[2018-09-08 08:58] VITALS: BMI 37.2
--- NOTE | 2018-09-08 09:26 | PDOC ---
History of Present Illness - General History Source: Patient, Old Records Exam Limitations: No Limitations - History of Present Illness Initial Comments: HPI: 57 y/o female presenting to [facility] complaining of cough since waking from sleep this morning. States the cough is productive of a small amount of clear sputum with post-tussive nausea and SOB. Endorses chills last evening and this morning without subjective fever or diaphoresis. Tolerating PO. History of asthma managed with albuterol and symbicort. Has not used the Symbicort in one week after she ran out of the medication and found the refill was not covered by her insurance. Was hospitalized one month ago for asthma exacerbation. 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 No known flu exposure. Received influenza vaccine in February 2018. PCP: Dr. Bloom <Justo Severino - Last Filed: 09/08/18 09:48> <Emily Harley - Last Filed: 09/08/18 10:27> - General Chief Complaint: Respiratory Stated Complaint: SHORTNESS OF BREATH Time Seen by Provider: 09/08/18 09:18 Past History - Past Medical History Asthma: Yes COPD: No CHF: No Diabetes: No GI Disorders: Yes (acid reflux) HTN: Yes Hypercholesterolemia: Yes - Immunization History Immunization Up to Date: Yes - Suicide/Smoking/Psychosocial Hx Smoking History: Current every day smoker Have you smoked in the past 12 months: Yes Number of Cigarettes Smoked Daily: 5 Information on smoking cessation initiated: No 'Breaking Loose' booklet given: 07/12/15 Hx Alcohol Use: No Drug/Substance Use Hx: No Substance Use Type: None <Justo Severino - Last Filed: 09/08/18 09:48> <Emily Harley - Last Filed: 09/08/18 10:27> - Past Medical History Allergies/Adverse Reactions: Allergies Allergy/AdvReac Type Severity Reaction Status Date / Time clarithromycin [From Biaxin] Allergy Verified 09/08/18 08:58 Home Medications: Ambulatory Orders Pravastatin Sodium [Pravachol -] 40 mg PO DAILY 07/12/15 Albuterol 0.083% Nebulizer Nuris [Ventolin 0.083% Nebulizer Soln -] 1 neb NEB Q4H #30 vial 03/22/18 Losartan Potassium 50 mg PO DAILY 10/04/18 Albuterol 2.5/Ipratropium 0.5 [Duoneb -] 1 amp NEB Q4H PRN 5 Days #30 amp Albuterol Sulfate Inhaler - [Ventolin HFA Inhaler -] 2 inh PO Q4H PRN #1 inh Amlodipine Besylate [Norvasc -] 5 mg PO DAILY 09/08/18 Potassium Chloride 10 meq PO BID 09/08/18 Review of Systems - Review of Systems Able to Perform ROS?: Yes Comments:: In addition to that documented in the HPI above, the additional ROS was obtained : Constitutional: Endorses chills. Denies fevers or diaphoresis Eyes: Denies vision changes ENMT: Denies sore throat or headache CV: Denies chest pain Resp: Per HPI GI: Denies vomiting or diarrhea : Denies painful urination MSK: Denies recent trauma Skin: Denies new rashes Neuro: Denies new numbness or tingling or weakness Endocrine: Denies polyuria Heme: Denies bleeding or bruising <Justo Severino - Last Filed: 09/08/18 09:48> *Physical Exam - Vital Signs Last Vital Signs Temp Pulse Resp BP Pulse Ox 98.8 F 91 H 20 139/109 H 97 09/08/18 08:54 09/08/18 08:54 09/08/18 08:54 09/08/18 08:54 09/08/18 08:54 - Physical Exam Comments: Constitutional: Well-developed, well-nourished, obese female in no acute distress or obvious discomfort. Found sitting upright on edge of hospital bed. Alert and oriented x4. Answered all questions appropriately and completely. Speech was non-labored, non-pressured. Able to speak in complete sentence without pause. Head: Normocephalic. No obvious external signs of trauma. Eyes: Sclerae white. Ears: Hearing grossly intact. Nose: No nasal discharge. Throat: Oral cavity and pharynx normal. No inflammation, swelling, exudate, or lesions. Neck: Supple, trachea is midline. Cardiovascular / Chest: Regular rate and regular rhythm. No murmur, rubs, clicks, or gallops. Peripheral pulses: radial pulses full. Respiratory: Breathing unlabored. Equal chest rise and fall. Trace expiratory wheeze without stridor or rhonchi. Gastrointestinal: abdomen is soft, non-tender, non-distended. Neuro: Alert and oriented. Moving all four extremities spontaneously. Skin: Warm, dry, and intact. Psych: Affect: appropriate. Mood: normal. <Justo Severino - Last Filed: 09/08/18 09:48> - Vital Signs Last Vital Signs Temp Pulse Resp BP Pulse Ox 98.8 F 91 H 20 139/109 H 97 09/08/18 08:54 09/08/18 08:54 09/08/18 08:54 09/08/18 08:54 09/08/18 08:54 <Emily Harley - Last Filed: 09/08/18 10:27> Moderate Sedation - Procedure Monitoring Vital Signs: Procedure Monitoring Vital Signs Temperature 98.8 F 09/08/18 08:54 Pulse Rate 91 H 09/08/18 08:54 Respiratory Rate 20 09/08/18 08:54 Blood Pressure 139/109 H 09/08/18 08:54 O2 Sat by Pulse Oximetry (%) 97 09/08/18 08:54 <SeverinoJusto - Last Filed: 09/08/18 09:48> - Procedure Monitoring Vital Signs: Procedure Monitoring Vital Signs Temperature 98.8 F 09/08/18 08:54 Pulse Rate 91 H 09/08/18 08:54 Respiratory Rate 20 09/08/18 08:54 Blood Pressure 139/109 H 09/08/18 08:54 O2 Sat by Pulse Oximetry (%) 97 09/08/18 08:54 <Emily Harley - Last Filed: 09/08/18 10:27> *DC/Admit/Observation/Transfer <SeverinoJusto - Last Filed: 09/08/18 09:48> - Discharge Dispostion Decision to Admit order: No <Emily Harley - Last Filed: 09/08/18 10:27> Diagnosis at time of Disposition: URI (upper respiratory infection) Acute bronchitis Qualifiers: Bronchitis organism: unspecified organism Qualified Code(s): J20.9 - Acute bronchitis, unspecified Asthma Qualifiers: Asthma severity: unspecified severity Asthma persistence: intermittent Asthma complication type: uncomplicated Qualified Code(s): J45.20 - Mild intermittent asthma, uncomplicated - Discharge Dispostion Disposition: HOME Condition at time of disposition: Improved - Prescriptions Prescriptions: Albuterol Sulfate Inhaler - [Ventolin HFA Inhaler -] 2 inh PO Q4H PRN #1 inh PRN Reason: Cough - Referrals Referrals: Shannan Bloom [Primary Care Provider] - - Patient Instructions Printed Discharge Instructions: DI for Asthma -- Adult, DI for Cough -- Adult, DI for Acute Bronchitis, DI for Viral Upper Respiratory Infection -- Adult Additional Instructions: your chest xray was negative for pneumonia. there is no influenza on testing this is most likely an early viral upper respiratory infection vs bronchitis, that should resolve in 2-3 weeks. your blood pressure was also elevated, here, resume your medications and diet and recheck with your primary doctor. salt water gargles and warm lemon tea is appropriate as well for soothing qualities for sore throat/cough. minimize spread of infection given contagious nature, and cover mouth and wash hands adequately with soap and water. Told Stay well hydrated and rest. work note will be provided. stay away from sick contacts. May use the albuterol inhaler every 4-6 hours as needed for cough and breathing to clear up your airways. Return precautions include respiratory distress, difficulty breathing, chest pain, lethargy, confusion, dehydration, high fevers or pain. follow up with your primary doctor to arrange for appropriate medications and getting your maintenance Symbicort. avoid triggers and environmental allergens/sick contacts. - Post Discharge Activity Forms/Work/School Notes: Back to Work
[2018-09-08] MEDS ORDERED: ALBUTEROL SO4 2.5/IPRATROPIUM 0.5 INH SOL 3 ML VIAL.NEB. NEB ONE (09:28)
--- NOTE | 2018-09-08 10:16 | PDOC ---
Attending Attestation - Resident Resident Name: BishopJusto - ED Attending Attestation I have performed the following: I have examined & evaluated the patient, The case was reviewed & discussed with the resident, I agree w/resident's findings & plan - HPI HPI: 09/08/18 10:11 57 YOF with asthma, HTN, HLD presenting with cough and congestion that woke her up today. took home albuterol this morning 7AM with some relief. ran out of symbicort 1 week ago, too expensive for her insurance to cover so has not had that done. 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 - Physicial Exam PE: 09/08/18 10:12 NAD, well appearing, speaking full sentences. PERRL, EOMI, MMM, nl conjunctiva, anicteric; neck supple. faint exp wheezing bilaterally, no respiratory distress. , RRR, abdomen soft obese abdomen, nontender. GUERRERO x4, no focal neuro deficits. No peripheral edema. normal color for ethnicity, WWP. no calf tenderness. dry skin - Medical Decision Making 09/08/18 10:13 hpi as documented VS no fever, hypertension; no tachycardia, no hypoxia, and no respiratory distress. ddx asthma exac. bronchitis. viral syndrome, URI, pneumonia. doubt cardiac or PE with history. cxr clear; Interpreted by ED Physician: CXR (1 view): no acute abnormality: no infiltrates, bones appear intact and structures normal alignment, cardiac silhouette mildly enlarged, some coarse lung findings but no consolidation. no free air under diaphragm, no pneumothorax. prominent mario. influenza_negative. repeat VS with some residual HTN but missed an additional antihypertensive this morning, told to resume that med. otherwise asymptomatic, so follow up with primary for blood pressure recheck and compliance with diet and meds lungs clear on repeat exam, well appearing, no respiratory distress. salt water gargles and warm lemon tea is appropriate as well for soothing qualities for sore throat/cough. minimize spread of infection given contagious nature, and cover mouth and wash hands adequately with soap and water. Told Stay well hydrated and rest. May use the albuterol inhaler every 4-6 hours as needed for cough and breathing to clear up your airways. Return precautions include respiratory distress, difficulty breathing, chest pain, lethargy, confusion, dehydration, high fevers or pain. 09/08/18 10:27
[2018-09-08 10:24] VITALS: BP 172/86; PULSE 89; TEMP 98.4
== END 2018-09-08 10:30 | disposition home or self-care (01) ==
LOC: JER 08:51
DX: J45.20 Mild intermittent asthma, uncomplicated (principal); J20.9 Acute bronchitis, unspecified; J06.9 Acute upper respiratory infection, unspecified; I10 Essential (primary) hypertension; E78.00 Pure hypercholesterolemia, unspecified; K21.9 Gastro-esophageal reflux disease without esophagitis
CPT/HCPCS: 71046-TC-FY; 87804; 99282-25

== ENCOUNTER 2019-04-30 06:06 | Day surgery (SDC) | payer OTHER ==
[2019-04-29 09:02] VITALS: BMI 34.8
--- NOTE | 2019-04-30 07:28 | OP ---
Operative Note - Note: Operative Date: 04/30/19 Pre-Operative Diagnosis: 58yo with Thick Endometrium Operation: Hysteroscopy, Polypectomy, D&C Findings: 1. Irregular Endometrium 2. Cervical polyps Post-Operative Diagnosis: Same as Pre-op Surgeon: Dennise Villarreal Anesthesiologist/FILLING STATION LABORER: Zuleima Shah Anesthesia: MAC Specimens Removed: Endometrial curettings and cervical polyps Estimated Blood Loss (mls): 0 Instrument used (Debridements only): Symphion Hysteroscope Drains & Tubes with Location: Fluid defficit 100cc Drains, Volume Out (mls): 10 Fluid Volume Replaced (mls): 400 Operative Report Dictated: Yes
--- NOTE | 2019-04-30 07:29 | HP ---
History & Physical Update - History History: No Change - Physical Physical: No Change - Assessment Assessment: No Change - Plan Plan: No Change (History and Physical reviewed and unchanged from prior H&P Consent signed and witnessed)
[2019-04-30] MEDS ORDERED: IBUPROFEN 600 MG TABLET (FP) PO PRN (07:31)
[2019-04-30] MEDS ORDERED: IBUPROFEN 800 MG/8 ML IJ IVPB PRN (07:31)
[2019-04-30] MEDS ORDERED: oxyCODONE HCL 5 MG TABLET PO PRN (07:31)
[2019-04-30] MEDS ORDERED: ONDANSETRON 4 MG/2 ML VIAL IVPUSH PRN (07:31)
[2019-04-30] MEDS ORDERED: PROPOFOL 20 ML ONE ×2 (07:42)
[2019-04-30] MEDS ORDERED: MIDAZOLAM HCL 2 MG/2 ML SINGLE DOSE VIAL ONE (07:42)
[2019-04-30] MEDS ORDERED: LIDOCAINE HCL/PF 2% SDV 5ML VIAL ONE (07:42)
[2019-04-30] MEDS ORDERED: ELECTROLYTE-148 SOLN 1,000 ML IV SCH (07:45)
[2019-04-30] MEDS ORDERED: KETOROLAC TROMETHAMINE 30 MG/1 ML VIAL ONE (08:11)
[2019-04-30] MEDS ORDERED: LACTATED RINGERS SOLUTION 1,000 ML IV SCH (08:45)
[2019-04-30 09:28] VITALS: TEMP 97.5
--- NOTE | 2019-04-30 11:46 | OP ---
DATE OF OPERATION: 04/30/2019 PREOPERATIVE DIAGNOSIS: A 58-year-old with thick endometrium. PROCEDURE: Hysteroscopy, polypectomy, dilation and curettage. FINDINGS: Irregular endometrium and cervical polyps. POSTOPERATIVE DIAGNOSIS: A 58-year-old with thick endometrium. SURGEON: Dennise Villarreal MD ANESTHESIOLOGIST: Zuleima Shah MD ANESTHESIA: MAC. SPECIMENS REMOVED: Endometrial curettings and cervical polyps. DESCRIPTION OF THE OPERATIVE PROCEDURE: After assuring informed consent, patient was brought to the operating room where she was placed in dorsal lithotomy position. Perineum and vagina were prepped and draped in sterile fashion. The cervix was grasped with a single-tooth tenaculum and gradually dilated to accommodate a 6.3-mm Symphion hysteroscope. Symphion hysteroscope was assembled, wide balanced, and primed. It was introduced into the uterus without any difficulty. The above findings in the uterus were noted, and resectoscope was introduced into the operative channel, and dilation and curettage inside the endometrial cavity and polypectomy was performed without any difficulty. Subsequently, all instruments were removed from the cervix, vagina, and uterus. Estimated blood loss 0 mL. Patient received 400 mL of IV fluids. Drains 10 mL of urine at the beginning of the procedure, and fluid deficit was 100 mL. Patient tolerated the procedure well. Sponge, instrument count was correct x2. Patient was brought to the recovery room in stable condition. Cristhian [id number]
[2019-04-30 11:51] VITALS: BP 130/70; PULSE 66
--- NOTE | 2019-05-01 16:45 | PATH ---
Surgical Pathology Report Patient Name: MILAD PEDROZA [facility]. Rec. #: [id number] /Age/Gender: 1960 (Age: 58) / F Account: [id number] Location: [facility] SURGICAL Taken: 04/30/2019 Received: 04/30/2019 Reported: 05/01/2019 Physicians: Dennise Villarreal M.D. Specimen(s) Received ENDOMETRIAL CURRETTINGS AND CERVICAL POLYP Clinical History Hysteroscopic fibroid resection, endometrial thickened Final Diagnosis ENDOMETRIAL CURETTINGS AND CERVICAL POLYP: FRAGMENTS OF ENDOMETRIAL POLYP. 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 SEPARATE FEW FRAGMENTS OF WEAKLY PROLIFERATIVE ENDOMETRIUM. Electronically Signed Sohail Rae M.D. Gross Description Received in formalin, labeled "endometrial curettings and cervical polyp" are multiple portions of soft tissue measuring 1.2 x 1.2 x 0.1 cm in aggregate. The specimens are submitted in toto in one cassette. ALLIE/04/30/2019 narendra/04/30/2019
== END 2019-04-30 10:45 | disposition home or self-care (01) ==
LOC: JASU-SURG 06:06
PROVIDERS: ATTEND Obstetrics & Gynecology
PROC: 0UB98ZX Excision of Uterus, Via Natural or Artificial Opening Endoscopic, Diagnostic (ICD-10-PCS; principal; 2019-04-30 07:30)
PROC: 0UDB7ZX Extraction of Endometrium, Via Natural or Artificial Opening, Diagnostic (ICD-10-PCS; 2019-04-30 07:30)
DX: N84.0 Polyp of corpus uteri (principal); I10 Essential (primary) hypertension; E11.9 Type 2 diabetes mellitus without complications; K21.9 Gastro-esophageal reflux disease without esophagitis
CPT/HCPCS: 82962; 88305-TC; 94760

== ENCOUNTER 2019-08-11 01:05 | Emergency (ER) | payer OTHER ==
[2019-08-11 01:27] VITALS: BMI 35.5
--- NOTE | 2019-08-11 01:51 | PDOC ---
History of Present Illness - General Chief Complaint: Nausea/Vomiting Stated Complaint: SOB,FLU LIKE SYMPTOM - History of Present Illness Initial Comments: The pt is a 58F w/ a history of HTN, DM, Asthma? who presents for evaluation of 1 day of malaise, cough, post-tussive emesis, and generalized weakness. Pt also reports increased SOB for 1 day and has been using her inhaler at home with some symptoms relief that will last for approx 4 hours. She denies fevers, chest pain, diarrhea, dysuria, hematuria, or changes in sensation. Pt had flu vaccine Pt works at [employer]. 08/11/19 02:09 Past History - Past Medical History Allergies/Adverse Reactions: Allergies Allergy/AdvReac Type Severity Reaction Status Date / Time clarithromycin [From Biaxin] Allergy "hives" Verified 08/11/19 01:27 Home Medications: Ambulatory Orders Pravastatin Sodium [Pravachol -] 40 mg PO HS 07/12/15 Albuterol 0.083% Nebulizer Nuris [Ventolin 0.083% Nebulizer Soln -] 1 neb NEB Q4H #30 vial 03/22/18 Losartan Potassium 100 mg PO DAILY 04/26/18 Albuterol Sulfate Inhaler - [Ventolin HFA Inhaler -] 2 inh PO Q4H PRN #1 inh Aspirin Coated [Ecotrin -] 81 mg PO DAILY 04/29/19 Carvedilol 25 mg PO BID 04/29/19 Cholecalciferol (Vitamin D3) [Vitamin D3] 5,000 unit PO WEEKLY 04/29/19 Amlodipine Besylate 5 mg PO DAILY 04/30/19 metFORMIN HCL [Metformin HCl ER] 250 mg PO DAILY 04/30/19 Anemia: No Asthma: Yes (seasonal) Cancer: No Cardiac Disorders: No CVA: No COPD: No CHF: No Dementia: No Diabetes: No GI Disorders: Yes (acid reflux) Disorders: No HTN: Yes Hypercholesterolemia: Yes Liver Disease: No Seizures: No Thyroid Disease: No - Immunization History Immunization Up to Date: Yes - Psycho Social/Smoking Cessation Hx Smoking History: Never smoked Have you smoked in the past 12 months: No Number of Cigarettes Smoked Daily: 5 Information on smoking cessation initiated: No 'Breaking Loose' booklet given: 04/30/19 Hx Alcohol Use: No Drug/Substance Use Hx: No Substance Use Type: None Hx Substance Use Treatment: No Review of Systems - Review of Systems Able to Perform ROS?: Yes Comments:: GENERAL/CONSTITUTIONAL: +gen weakness/malaise; No fever HEAD, EYES, EARS, NOSE AND THROAT: No change in vision. No change in hearing. No sore throat CARDIOVASCULAR: No chest pain RESPIRATORY: +cough; Denies hemoptysis GASTROINTESTINAL: +nausea/vomiting; No diarrhea or constipation GENITOURINARY: No dysuria, frequency, or change in urination MUSCULOSKELETAL: No joint or muscle swelling or pain. No neck or back pain SKIN: No rash NEUROLOGIC: No headache, vertigo, loss of consciousness, or change in strength/ sensation ENDOCRINE: No increased thirst. No abnormal weight change HEMATOLOGIC/LYMPHATIC: No anemia, easy bleeding, or history of blood clots ALLERGIC/IMMUNOLOGIC: No hives or skin allergy 08/11/19 01:50 Is the patient limited Irish proficient: No *Physical Exam - Vital Signs Last Vital Signs Temp Pulse Resp BP Pulse Ox 99.4 F 89 17 175/82 H 100 08/11/19 01:24 08/11/19 01:24 08/11/19 01:24 08/11/19 01:24 08/11/19 01:24 - Physical Exam GENERAL: Awake, alert, and oriented to person/place/time HEAD: No signs of trauma, normoc ephalic, atraumatic EYES: PERRLA, EOMI, sclera anicteric, conjunctiva clear ENT: Hearing grossly normal, nares patent, oropharynx clear without exudates. Moist mucosa LUNGS: No distress, speaks in full sentences, clear to auscultation bilaterally HEART: Regular rate and rhythm, normal S1 and S2, no murmurs appreciated, peripheral pulses normal and equal bilaterally ABDOMEN: Soft, nontender, normoactive bowel sounds. No guarding, no rebound EXTREMITIES: Normal inspection, Normal range of motion, no edema. No clubbing or cyanosis NEUROLOGICAL: Cranial nerves II through XII grossly intact. Normal speech, no focal sensorimotor deficits SKIN: Warm, Dry 08/11/19 01:51 ED Treatment Course - LABORATORY CBC & Chemistry Diagram: 08/11/19 02:10 08/11/19 02:10 Medical Decision Making - Medical Decision Making The pt is a 58F w/ a history of HTN, DM, asthma? 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: influenza, viral syndrome, Asthma exacerbation (no wheezing on exam), consider ACS ED Course CMP, CBC, Trop I Influenza swab ECG CXR Ofirmev and Zofran for symptomatic relief 08/11/19 02:13 Influenza neg CXR w/o focal consolidation No leukocytosis No anemia K repleted Trop I neg LFT unremarkable No SHARRON 08/11/19 03:57 Pt feels improved at this time BP improved Plan for D/C w/ PCP f/u Discharge instructions and return precautions given Patient in agreement and verbalized understanding Dispo: Home 08/11/19 04:11 Discharge - Discharge Information Problems reviewed: Yes Clinical Impression/Diagnosis: Viral syndrome Condition: Improved Disposition: HOME - Admission No - Follow up/Referral Referrals: Shannan Bloom [Primary Care Provider] - - Patient Discharge Instructions Patient Printed Discharge Instructions: DI for Viral Syndrome Additional Instructions: You were seen in the Emergency Department for evaluation of cough. Your symptoms are likely related to a virus and will likely self resolve within a week. Review the handout provided at discharge. Be sure to frequently wash your hands. Avoid close contact with young children, elderly, or weak immune system. Follow up with your primary care doctor within a week. - Post Discharge Activity Work/Back to School Note: Back to Work
[2019-08-11] MEDS ORDERED: ACETAMINOPHEN 1000 MG/100 ML VIAL (NON FORMULARY) IVPB ONE (02:01)
[2019-08-11] MEDS ORDERED: ONDANSETRON 4 MG/2 ML VIAL IVPUSH ONE (02:01)
[2019-08-11] MEDS ORDERED: ACETAMINOPHEN INJECTION 100 ML IVPB ONE (02:07)
[2019-08-11] MEDS ORDERED: ONDANSETRON 4 MG/2 ML VIAL ONE (02:07)
[2019-08-11] MEDS ORDERED: SODIUM CHLORIDE 0.9% 500 ML INFUS.BAG IV ONE (02:15)
[2019-08-11] MEDS ORDERED: ALBUTEROL SO4 2.5/IPRATROPIUM 0.5 INH SOL 3 ML VIAL.NEB. NEB ONE (02:44)
[2019-08-11] MEDS ORDERED: ALBUTEROL SO4 2.5/IPRATROPIUM 0.5 INH SOL 3 ML VIAL.NEB. NEB SCH (02:45)
[2019-08-11 02:56] LABS: BASO % 0.1 % (0-2.0); EOS % 0.3 % (0-4.5); HEMATOCRIT 41.4 % (32.4-45.2); HEMOGLOBIN 13.8 GM/dL (10.7-15.3); LYMPH % 14.1 % (8-40); MCHC 33.4 g/dl (32.0-36.0); MEAN CELL VOLUME 92.7 fl (80-96); MEAN PLT VOLUME 9.1 fl (7.5-11.1); MONO % 8.6 % (3.8-10.2); NEUT % 76.9 % (42.8-82.8); PLATELET COUNT 173 K/MM3 (134-434); RBC 4.47 M/mm3 (3.60-5.2); RDW 13.7 % (11.6-15.6); WHITE BLOOD COUNT 9.1 K/mm3 (4.0-10.0)
--- NOTE | 2019-08-11 03:02 | PDOC ---
Attending Attestation - Resident Resident Name: Rangel Kovacs - ED Attending Attestation I have performed the following: I have examined & evaluated the patient, The case was reviewed & discussed with the resident, I agree w/resident's findings & plan - HPI HPI: 08/11/19 04:10 Pt comes with cold and cough and feeling unwell. 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 Pt has cough and she has musculoskeletal pain - Physicial Exam PE: 08/11/19 04:10 Normal heart sounds Lungs clear abd soft NT ND + BS No edema of legs - Medical Decision Making 08/11/19 03:22 CBC normal chem and flu cx pending CXR pending Pt feels better with the L of NSS and with the ofirmev. Pt wants to go home, as she feels better. 08/11/19 04:12 Pt has low K+ and she will be repleted with K+ and Mg+ 08/11/19 04:13 Pt received 1L NSS here and she is feeling better; mg+ and EKG is NSR CXR clear Slight congestion at the right hilum 08/11/19 04:14 We originally ordered losartan, but pt's BP on repeat was 130 systolic. Heart Score/ECG Review - ECG Intrepretation Rhythm: Regular Rhythm - [place]: Normal - P and [place] Prominent R with upright T in V1 (true posterior AL): No Delta Wave(s) Present: No WPW: No - QRS Poor R Wave Progression: No Q Wave Present: No - ST and T Early Repolarization: No Non Specific ST-T Wave changes: No Flattened T Waves: No - ECG Impressions Normal ECG: Yes Non-specific ST Elevation: No Ischemic Changes: No Bradycardia: No Torsades denton Pointes: No WPW: No
[2019-08-11 03:33] LABS: ALBUMIN 3.6 g/dl (3.4-5.0); BILIRUBIN,TOTAL 0.7 mg/dL (0.2-1); BLOOD UREA NITROGEN 9.7 mg/dL (7-18); CALCIUM 9.4 mg/dL (8.5-10.1); CREATININE 0.7 mg/dL (0.55-1.3); POTASSIUM 3.3 mmol/L (3.5-5.1); TOT PROT 7.2 g/dl (6.4-8.2)
[2019-08-11] MEDS ORDERED: POTASSIUM CHLORIDE TABS 20 MEQ TABLET.ER (FP) PO ONE ×2 (03:47→04:02)
[2019-08-11] MEDS ORDERED: MAGNESIUM SULF 50% (8.12 MEQ/2 ML-1 GM VIAL) IVPB ONE (03:47)
[2019-08-11] MEDS ORDERED: LOSARTAN POTASSIUM 50 MG TABLET (FP) PO ONE (03:56)
[2019-08-11] MEDS ORDERED: LOSARTAN POTASSIUM 50 MG TABLET (FP) ONE (04:05)
[2019-08-11 04:14] VITALS: BP 134/73; PULSE 86; TEMP 98.9
--- NOTE | 2019-08-11 11:01 | EKG ---
Test Reason : Blood Pressure : / mmHG Vent. Rate : 086 BPM Atrial Rate : 086 BPM P-R Int : 132 ms QRS Dur : 090 ms QT Int : 396 ms P-R-T Axes : 063 011 030 degrees QTc Int : 473 ms NORMAL SINUS RHYTHM NORMAL ECG WHEN COMPARED WITH ECG OF 12-APR-2019 08:35, QT HAS LENGTHENED Confirmed by DRE CALDERÓN MD ([id number]) on 08/11/2019 11:00:57 AM Referred By: Confirmed By:DRE CALDERÓN MD
== END 2019-08-11 04:28 | disposition home or self-care (01) ==
LOC: JER 01:05
DX: B34.9 Viral infection, unspecified (principal); I10 Essential (primary) hypertension; E78.00 Pure hypercholesterolemia, unspecified; E11.9 Type 2 diabetes mellitus without complications; Z79.84 Long term (current) use of oral hypoglycemic drugs; K21.9 Gastro-esophageal reflux disease without esophagitis; J45.909 Unspecified asthma, uncomplicated
CPT/HCPCS: 36415; 71045-TC-FY; 80053; 84484; 85025; 87804; 93005; 93010; 99283-25; J0131

== ENCOUNTER 2019-08-14 00:32 | Inpatient (IN) | payer OTHER ==
[2019-08-14] MEDS ORDERED: ONDANSETRON 4 MG/2 ML VIAL IVPB ONE (02:05)
[2019-08-14] MEDS ORDERED: ACETAMINOPHEN 1000 MG/100 ML VIAL (NON FORMULARY) IVPB ONE (02:05)
[2019-08-14] MEDS ORDERED: LACTATED RINGERS SOLUTION 1000 ML INFUS.BAG IV ONE (02:05)
[2019-08-14] MEDS ORDERED: FAMOTIDINE 20 MG/50 ML IVPB 20 MG/50 ML MG IVPB ONE (02:06)
--- NOTE | 2019-08-14 02:06 | PDOC ---
History of Present Illness - General History Source: Patient, Old Records Exam Limitations: No Limitations - History of Present Illness Initial Comments: HPI: 58 y/o female presenting to [facility] ER complaining of shortness of breath, wheezing , cough productive of clear sputum, vomiting, and diarrhea. Was evaluated in this department on 11 Aug 2019 for similar; diagnosed as viral illness. Reports the symptoms have worsened. Now feels generally weak. No longer able to tolerate PO. Emesis described as nonbloody and nonbilious. Stools described as watery and nonbloody. SOB has not improved with MDI use at home. Denies sick contacts, recent travel, or recent abx usage. Social Hx: - Former smoker, quit two weeks ago Medical Hx: - HTN - Asthma (only on albuterol) - HLD - GERD Review of Systems: In addition to that documented in the HPI above, the additional ROS was obtained : Constitutional- Generally weak. Denies fevers or chills Head- Denies vision changes ENMT- Denies sore throat CV- Denies chest pain Resp- Per HPI GI- Per HPI - Reports increased urinary frequency without dysuria or hematuria MSK- Denies recent trauma Skin- Denies new rashes Neuro- Denies new numbness or tingling Endocrine- Denies polyuria Heme- Denies bleeding or bruising Physical Examination: Vital signs and nursing notes reviewed. Constitutional- Puny appearing adult female in no acute distress. Obese body habitus. Found sitting upright on hospital stretcher. Head- Normocephalic. No obvious external signs of trauma. Eyes- Sclerae white. Conjunctiva moist and not injected. Ears- Hearing grossly intact. Nose- No nasal discharge. Throat- Dry lips. Oral cavity and pharynx normal. Neck- Supple, trachea is midline. Cardiovascular / Chest- Regular rate and regular rhythm. No murmur, rubs, clicks , or gallops. Peripheral pulses- radial pulses full. Respiratory- Breathing unlabored, but shallow. Equal chest rise and fall. Diffuse end expiratory wheezing throughout. Decreased breath sounds in both lower posterior yepez. No focal consolidation. Gastrointestinal- abdomen is soft, non-tender, non-distended. No pulsatile masses. No overlying skin lesions or obvious signs of trauma. Neuro- Alert and oriented x4. Moving all four extremities spontaneously. Skin- Warm, dry, and intact. - No R or L CVA tenderness. Psych- Affect- appropriate. Mood- normal. Speech was non-labored, non- pressured. MDM: Flu positive in acute asthma exacerbation. Pt signed out to ED Attending. Admission pending. <Justo Severino - Last Filed: 08/14/19 09:41> <Mustapha Ferris - Last Filed: 08/14/19 09:48> - General Chief Complaint: Nausea/Vomiting Stated Complaint: FLU-LIKE SYMPTOMS Time Seen by Provider: 08/14/19 02:01 Past History - Past Medical History Anemia: No Asthma: Yes (seasonal) Cancer: No Cardiac Disorders: No CVA: No COPD: No CHF: No Dementia: No Diabetes: No GI Disorders: Yes (acid reflux) Disorders: No HTN: Yes Hypercholesterolemia: Yes Liver Disease: No Seizures: No Thyroid Disease: No - Immunization History Immunization Up to Date: Yes - Psycho Social/Smoking Cessation Hx Smoking History: Current some day smoker Have you smoked in the past 12 months: No Number of Cigarettes Smoked Daily: 8 Information on smoking cessation initiated: No 'Breaking Loose' booklet given: 04/30/19 Hx Alcohol Use: No Drug/Substance Use Hx: No Substance Use Type: None Hx Substance Use Treatment: No <Justo Severino - Last Filed: 08/14/19 09:41> <Mustapha Ferris - Last Filed: 08/14/19 09:48> - Past Medical History Allergies/Adverse Reactions: Allergies Allergy/AdvReac Type Severity Reaction Status Date / Time clarithromycin [From Biaxin] Allergy "hives" Verified 08/14/19 01:16 Home Medications: Ambulatory Orders Pravastatin Sodium [Pravachol -] 40 mg PO HS 07/12/15 Albuterol 0.083% Nebulizer Nuris [Ventolin 0.083% Nebulizer Soln -] 1 neb NEB Q4H #30 vial 03/22/18 Losartan Potassium 100 mg PO DAILY 04/26/18 Albuterol Sulfate Inhaler - [Ventolin HFA Inhaler -] 2 inh PO Q4H PRN #1 inh Carvedilol 25 mg PO BID 04/29/19 Cholecalciferol (Vitamin D3) [Vitamin D3] 5,000 unit PO WEEKLY 04/29/19 Amlodipine Besylate 10 mg PO DAILY 04/30/19 metFORMIN HCL [Metformin HCl ER] 500 mg PO DAILY 04/30/19 *Physical Exam - Vital Signs Last Vital Signs Temp Pulse Resp BP Pulse Ox 100.2 F H 84 20 131/64 99 08/14/19 01:17 08/14/19 01:17 08/14/19 01:17 08/14/19 01:17 08/14/19 01:17 <Justo Severino - Last Filed: 08/14/19 09:41> - Vital Signs Last Vital Signs Temp Pulse Resp BP Pulse Ox 100.2 F H 73 21 H 112/55 L 95 08/14/19 01:17 08/14/19 06:30 08/14/19 06:30 08/14/19 06:30 08/14/19 06:30 <Mustapha Ferris - Last Filed: 08/14/19 09:48> ED Treatment Course - LABORATORY CBC & Chemistry Diagram: 08/14/19 02:25 08/14/19 02:25 - RADIOLOGY Radiology Studies Ordered: Category Date Time Status CHEST PA & LAT [RAD] Stat Radiology 08/14/19 02:05 Ordered <Justo Severino - Last Filed: 08/14/19 09:41> - LABORATORY CBC & Chemistry Diagram: 08/14/19 02:25 08/14/19 02:25 - ADDITIONAL ORDERS Additional order review: Laboratory Results 08/14/19 08/14/19 08/14/19 02:25 02:25 02:25 Sodium 140 Potassium 3.2 L Chloride 100 Carbon Dioxide 32 Anion Gap 8 BUN 13.5 Creatinine 1.0 Est GFR (CKD-EPI)AfAm 70.91 Est GFR (CKD-EPI)NonAf 61.19 Random Glucose 133 H Lactic Acid 1.5 Calcium 9.2 Phosphorus 3.7 Magnesium 2.0 Total Bilirubin 1.2 H AST 33 ALT 28 Alkaline Phosphatase 33 L Total Protein 7.6 Albumin 3.4 Lipase 98 08/14/19 02:25 RBC 4.57 MCV 91.6 MCHC 33.6 RDW 13.8 MPV 8.8 Neutrophils % 62.4 Lymphocytes % 26.9 D Monocytes % 10.4 H Eosinophils % 0.0 D Basophils % 0.3 - Medications Given in the ED: ED Medications Discontinued Medications Generic Name Dose Route Start Last Admin Trade Name Freq PRN Reason Stop Dose Admin Acetaminophen 1,000 mg 01/22/20 02:05 08/14/19 02:55 Ofirmev Injection - IVPB 08/14/19 02:06 1,000 mg ONCE ONE Administration Albuterol/Ipratropium 3 amp 08/14/19 02:42 08/14/19 02:56 Duoneb - NEB 08/14/19 02:43 3 amp ONCE ONE Administration Famotidine/Sodium Chloride 20 mg in 50 mls @ 100 mls/hr 08/14/19 02:06 04:43 Pepcid 20 Mg Premixed Ivpb - IVPB 08/14/19 02:35 100 mls/hr ONCE ONE Administration Lactated Ringer's 1,000 ml 08/14/19 02:05 08/14/19 02:55 Lactated Ringers Solution IV 08/14/19 02:06 1,000 ml ONCE ONE Administration Methylprednisolone Sodium Succinate 125 mg 08/14/19 02:42 08/14/19 03:21 Solu-Medrol - IVPUSH 08/14/19 02:43 125 mg ONCE ONE Administration Ondansetron HCl 8 mg 08/14/19 02:05 08/14/19 02:56 Zofran Injection IVPB 08/14/19 02:06 8 mg ONCE ONE Administration <Mustapha Ferris - Last Filed: 08/14/19 09:48> Discharge - Discharge Information Problems reviewed: Yes - Admission Yes <Justo Severino - Last Filed: 08/14/19 09:41> <Mustapha Ferris - Last Filed: 08/14/19 09:48> - Discharge Information Clinical Impression/Diagnosis: Influenza B Asthma exacerbation Qualifiers: Asthma severity: mild Asthma persistence: intermittent Qualified Code(s): J45.21 - Mild intermittent asthma with (acute) exacerbation Condition: Stable - Follow up/Referral Referrals: Shannan Bloom [Primary Care Provider] - - Patient Discharge Instructions - Post Discharge Activity
--- NOTE | 2019-08-14 02:06 | PDOC ---
Attending Attestation - Resident Resident Name: Omid Jordan - ED Attending Attestation I have performed the following: I have examined & evaluated the patient, The case was reviewed & discussed with the resident, I agree w/resident's findings & plan - HPI HPI: 08/14/19 21:50 see resident hpi - Physicial Exam PE: 08/14/19 21:50 agree with resident exam - Medical Decision Making 08/14/19 21:50 58-year-old female history of asthma now with body aches increased shortness of breath and cough Patient is influenza positive There is no focal infiltrate on x-ray though in light of her age, bronchospasm and coinfection she will be admitted for further management Bronchodilators and steroids given in the ED
[2019-08-14] MEDS ORDERED: ACETAMINOPHEN INJECTION 100 ML IVPB ONE (02:39)
[2019-08-14] MEDS ORDERED: ONDANSETRON 4 MG/2 ML VIAL ONE ×2 (02:39→03:13)
[2019-08-14] MEDS ORDERED: ALBUTEROL SO4 2.5/IPRATROPIUM 0.5 INH SOL 3 ML VIAL.NEB. NEB ONE ×2 (02:41→02:42)
[2019-08-14] MEDS ORDERED: methylPREDNISolone NA SUCC 125 MG/2 ML VIAL IVPUSH ONE (02:42)
[2019-08-14 02:44] LABS: BASO % 0.3 % (0-2.0); HEMATOCRIT 41.9 % (32.4-45.2); HEMOGLOBIN 14.1 GM/dL (10.7-15.3); LYMPH % 26.9 % (8-40); MCH 30.8 pg (25.7-33.7); MCHC 33.6 g/dl (32.0-36.0); MEAN CELL VOLUME 91.6 fl (80-96); MEAN PLT VOLUME 8.8 fl (7.5-11.1); MONO % 10.4 % (3.8-10.2); NEUT % 62.4 % (42.8-82.8); PLATELET COUNT 149 K/MM3 (134-434); RBC 4.57 M/mm3 (3.60-5.2); RDW 13.8 % (11.6-15.6); WHITE BLOOD COUNT 8.2 K/mm3 (4.0-10.0)
[2019-08-14 03:13] LABS: PHOSPHOROUS 3.7 mg/dL (2.5-4.9)
[2019-08-14] MEDS ORDERED: methylPREDNISolone NA SUCC 125 MG/2 ML VIAL ONE (03:13)
[2019-08-14 03:14] LABS: ALBUMIN 3.4 g/dl (3.4-5.0); BILIRUBIN,TOTAL 1.2 mg/dL (0.2-1); BLOOD UREA NITROGEN 13.5 mg/dL (7-18); CALCIUM 9.2 mg/dL (8.5-10.1); POTASSIUM 3.2 mmol/L (3.5-5.1); TOT PROT 7.6 g/dl (6.4-8.2)
--- NOTE | 2019-08-14 09:04 | HP ---
CHIEF COMPLAINT: Shortness of breath PCP: Dr. Bloom HISTORY OF PRESENT ILLNESS: Pt. is a 58 y.o. F w/ PMHx. of HTN, HLD, GERD (not on medication), and Asthma presents for shortness of breath that has been worsening since Monday. Pt. was recently seen in the ED on the where Flu swab was negative, discharged home with viral illness. Pt. states that since discharge symptoms have not gotten better espite useing her home inhalers every 4 hours. Pt. states that before this week she did not use her inhaler for the previous month, and does not use it frequently. Pt. endorses increased general malaise, diarrhea(3 non-blood BMs/ day) and 7 episodes of NBNB emesis. Pt. endorses white phlegm associated with cough and has caused her to have reproducible chest pain along her ribs. Pt. endorses decreased PO intake, hot sweats, hot flashes (LMP was 1.5 years ago), metallic taste in her mouth and hoarseness in her voice in the morning. Pt. states she had an EGD done in the past but is unsure of the results. Pt. in 2018 was discharged on home oxygen, Symbicort, Spiriva and Pulmonology (Dr. Hernandez) followup. Pt. was unable to see Dr. Hernandez because he does not accept her insurance. Dr. Bloom prescribes her medications and has not prescribed Oxygen, Symbicort or Spiriva. Pt. states she does not use her home O2. Pt. states she uses 6 pillows to sleep at night and feels "uncomfortable" when lying flat. Pt. states she can walk 4 blocks at a brisk pace and can climb 2 flights of stairs before feeling short of breath. Pt. 's last Echo in 2015 was normal, EF: 57.6%. Pt. states that her nausea has resolved since getting the ED medications. 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 Pt. endorses having the flu vaccine. Pt. states that her father had Asthma (), Mother had DM and enlarged heart (), and twin sister had DM, enlarged heart and Asthma ( from heart condition) ER course was notable for: (1)3L NC, Pulse Ox, Tylenol (2)Solumedrol 125, Zofran, Famotidine, CXR, IVF (3) Recent Travel: Denies PAST MEDICAL HISTORY: As above PAST SURGICAL HISTORY: D&C (last month, fat removed), Colonoscopy (4 years ago 3 polyps cauterized, due for Rpt. next year) Social History: Smoking: Quit 2 weeks ago, 1/2 PPD x 20 years Alcohol: Denies Drugs: Denies Allergies clarithromycin [From Biaxin] Allergy (Verified 08/14/19 01:16) "hives" HOME MEDICATIONS: Home Medications Medication Instructions Recorded Pravastatin Sodium [Pravachol -] 40 mg PO HS 07/12/15 Albuterol 0.083% Nebulizer Nuris 1 neb NEB Q4H #30 vial 03/22/18 [Ventolin 0.083% Nebulizer Soln -] Losartan Potassium 100 mg PO DAILY 04/26/18 Albuterol Sulfate Inhaler - 2 inh PO Q4H PRN #1 inh 09/08/18 [Ventolin HFA Inhaler -] Carvedilol 25 mg PO BID 04/29/19 Cholecalciferol (Vitamin D3) 5,000 unit PO WEEKLY 04/29/19 [Vitamin D3] Amlodipine Besylate 10 mg PO DAILY 04/30/19 metFORMIN HCL [Metformin HCl ER] 500 mg PO DAILY 04/30/19 REVIEW OF SYSTEMS As above PHYSICAL EXAMINATION Vital Signs - 24 hr 08/14/19 08/14/19 01:17 06:30 Temperature 100.2 F H Pulse Rate 84 Pulse Rate [ 73 Apical] Respiratory 20 21 H Rate Blood Pressure 131/64 Blood Pressure 112/55 L [Left Arm] O2 Sat by Pulse 99 95 Oximetry (%) GENERAL: Awake, alert, and fully oriented, in no acute distress. HEAD: Normal with no signs of trauma. EYES: Extraocular movements intact, sclera anicteric, conjunctiva clear. EARS, NOSE, THROAT: Ears normal, nares patent, oropharynx clear without exudates. Moist mucous membranes. NECK: Normal range of motion, supple without lymphadenopathy, JVD, or masses. LUNGS: L. sided crackles throughout, decreased airflow, no wheezing, costal- chondral tenderness. No accessory muscle use. HEART: Regular rate and rhythm, normal S1 and S2 without murmur. ABDOMEN: Soft, suprapubic tenderness, not distended, normoactive bowel sounds, no guarding, no rebound, no masses. No hepatomegaly or splenomegaly. MUSCULOSKELETAL: Normal range of motion at all joints. No bony deformities or tenderness. R. CVA tenderness. UPPER EXTREMITIES: warm, well-perfused. No cyanosis. No clubbing. No peripheral edema. LOWER EXTREMITIES: 2+ dorsal pedal pulses, warm, well-perfused. No calf tenderness. 1+ edema. NEUROLOGICAL: Cranial nerves II-XII intact. Normal speech. Gait not assessed. PSYCHIATRIC: Cooperative. Good eye contact. Appropriate mood and affect. SKIN: Warm, dry, normal turgor Laboratory Results - last 24 hr 08/14/19 08/14/19 08/14/19 02:25 02:25 02:25 WBC 8.2 RBC 4.57 Hgb 14.1 Hct 41.9 MCV 91.6 MCH 30.8 MCHC 33.6 RDW 13.8 Plt Count 149 MPV 8.8 Absolute Neuts (auto) 5.1 Neutrophils % 62.4 Lymphocytes % 26.9 D Monocytes % 10.4 H Eosinophils % 0.0 D Basophils % 0.3 Nucleated RBC % 0 Sodium 140 Potassium 3.2 L Chloride 100 Carbon Dioxide 32 Anion Gap 8 BUN 13.5 Creatinine 1.0 Est GFR (CKD-EPI)AfAm 70.91 Est GFR (CKD-EPI)NonAf 61.19 Random Glucose 133 H Lactic Acid 1.5 Calcium 9.2 Phosphorus Magnesium Total Bilirubin 1.2 H AST 33 ALT 28 Alkaline Phosphatase 33 L Total Protein 7.6 Albumin 3.4 Lipase Influenza A (Rapid) Influenza B (Rapid) 08/14/19 08/14/19 02:25 03:33 WBC RBC Hgb Hct MCV MCH MCHC RDW Plt Count MPV Absolute Neuts (auto) Neutrophils % Lymphocytes % Monocytes % Eosinophils % Basophils % Nucleated RBC % Sodium Potassium Chloride Carbon Dioxide Anion Gap BUN Creatinine Est GFR (CKD-EPI)AfAm Est GFR (CKD-EPI)NonAf Random Glucose Lactic Acid Calcium Phosphorus 3.7 Magnesium 2.0 Total Bilirubin AST ALT Alkaline Phosphatase Total Protein Albumin Lipase 98 Influenza A (Rapid) Negative Influenza B (Rapid) Positive A ASSESSMENT/PLAN: Pt. is a 58 y.o. F w/ PMHx. of HTN, HLD, GERD (not on medication), and Asthma presents for shortness of breath that has been worsening since Monday. #Asthma Exacerbation likely secondary to the Flu Flu B + Duonebs RQID Albuterol PRN Given Solumedrol 125mg, c/w Prednisone 60mg monitor pulse oximetry Pt. will need Pre and POst prior to discharge and evaluation if she needs O2 #R/O Heart Failure Trop - f/u Echo Given symptoms #Suprapubic tenderness f/u UA #HTN c/w Coreg 25mg BID c/w HCTZ 25mg #HLD c/w Pravastatin #GERD c/w Protonix 40mg, Pt. will need to be discharged on home regimen #Nausea Given Zofran in ED Zofran 4mg PRN f/u EKG #FEN no IVF monitor electrolytes and replete as needed. Given PO 40meq for hypokalemia, resumed Pt.'s 10meq daily dose. Sodium controlled diet #DVT Ppx. Hep SQ Visit type - Emergency Visit Emergency Visit: Yes ED Registration Date: 08/14/19 Care time: The patient presented to the Emergency Department on the above date and was hospitalized for further evaluation of their emergent condition. - New Patient This patient is new to me today: Yes Date on this admission: 08/14/19 - Critical Care Critical Care patient: No ATTENDING PHYSICIAN STATEMENT I saw and evaluated the patient. I reviewed the resident's note and discussed the case with the resident. I agree with the resident's findings and plan as documented. SUBJECTIVE: OBJECTIVE: ASSESSMENT AND PLAN:
[2019-08-14] MEDS ORDERED: POTASSIUM CHLORIDE TABS 20 MEQ TABLET.ER (FP) PO ONE ×2 (09:59→15:04)
[2019-08-14] MEDS ORDERED: ALBUTEROL SO4 0.083% IH SOL 2.5 MG/3 ML VIAL.NEB. NEB PRN (10:26)
--- NOTE | 2019-08-14 10:34 | EKG ---
Test Reason : Blood Pressure : / mmHG Vent. Rate : 073 BPM Atrial Rate : 073 BPM P-R Int : 126 ms QRS Dur : 086 ms QT Int : 386 ms P-R-T Axes : 065 023 021 degrees QTc Int : 425 ms POOR DATA QUALITY, INTERPRETATION MAY BE ADVERSELY AFFECTED NORMAL SINUS RHYTHM NORMAL ECG WHEN COMPARED WITH ECG OF 11-AUG-2019 03:27, NO SIGNIFICANT CHANGE WAS FOUND Confirmed by KOREY CHOUDHURY MD ([id number]) on 08/14/2019 10:34:14 AM Referred By: Confirmed By:KOREY CHOUDHURY MD
--- NOTE | 2019-08-14 11:46 | PN ---
Teaching Attending Note Name of Resident: Maximino Muir ATTENDING PHYSICIAN STATEMENT I saw and evaluated the patient. I reviewed the resident's note and discussed the case with the resident. I agree with the resident's findings and plan as documented. SUBJECTIVE: Seen and examined; please see resident note for further historical information. I personally verified all cruz historical information and exam findings. Personally interpreted all imaging and diagnostics and reviewed appropriate consults. I reviewed all labs and vital signs as per resident note and EMR as documented. I agree with the above assessment and plan unless supplemented by myself in the following. Seen and examined, agree with the history of present illness as well as the past medical/surgical/family/social histories supplanted in the resident history of present illness. Patient is documented in the ER as having history of mild intermittent asthma with an acute exacerbation. They are a patient of Dr. Bloom. Chest x-ray performed in the ER was negative with no evidence of acute pulmonary disease, electrocardiogram was normal sinus rhythm with no particular changes compared to the EKG done on August 11, 2019. She has a history of steroid-induced myopathy so we will be careful with the steroids, and the patient is on Norvasc, losartan, and Coreg at home. Their home inhalers include tiotropium, Symbicort, and as needed albuterol via nebulizer. 10 item review of systems completed and is negative aside from as discussed in the subjective data in my own/the resident documentation. VS, labs, imaging reviewed NAD, AAO, resting comfortably in bed. RRR s1/2 no mgr Normal muscle tone, moves all 5 extremities with normal apparent strength Neck is supple, trachea midline, no mercy LN Wheezes appreciated With good air movementwith sym expansion NT ND +BS no mercy organomegaly CN2-12 wnl; no FND NC AT EOMI PERRLA Normal mood, appropriate behavior, euthymic affect No skin breakdown or rashes noted EKG, chest x-ray reviewed. Commented on above. Labs without any white count. Influenza pending, bilirubin elevated to 1.2, low potassium at 3.2, mildly elevated glucose at 133. Negative lipase, normal magnesium. Echocardiogram 2016 reveals LVEF thickness size and function are normal with normal RV and trace TR ASSESSMENT AND PLAN: Patient presents to the emergency room with acute shortness of breath suspicious for asthma exacerbation. Will place on bronchodilators, oral steroids to avoid precipitating a steroid-induced myopathy as was evident in 2018, we will go ahead and we will trend CMP and monitor her bilirubin. Reviewed the patient's past visits shows that she has had increased bilirubin in the past 2 comparable level on March 22 2018-1.1. She has no documented underlying hepatobiliary pathology and we will monitor. If indicated we will consult pulmonary medicine at this juncture the patient is stable in terms of her pulmonary symptoms and likely can be discharged in 24 to 48 hours pending improvement. Checking BNP, if elevated, will obtain echocardiogram. Replacing potassium. Problems include: Acute asthma exacerbation History of steroid-induced myopathy Hyperbilirubinemia, chronic Hypokalemia Hyperglycemia Full code
[2019-08-14] MEDS: predniSONE 20 MG TABLET (UD) PO SCH (12:32)
[2019-08-14] MEDS: OSELTAMIVIR PHOSPHATE 75 MG CAPSULE PO SCH (12:32)
[2019-08-14] MEDS: PANTOPRAZOLE 40 MG TABLET PO SCH (12:33)
[2019-08-14] MEDS: HEPARIN NA (PORCINE) 5,000 UNITS/ML 1ML VIAL SQ SCH ×2 (15:01→23:07)
[2019-08-14 15:46] VITALS: BMI 34.7
[2019-08-14] MEDS: ALBUTEROL SO4 2.5/IPRATROPIUM 0.5 INH SOL 3 ML VIAL.NEB. NEB SCH ×2 (16:41→20:11)
[2019-08-14 19:05] LABS: URINE APPEARANCE CLEAR; URINE BILIRUBIN NEGATIVE (NEGATIVE); URINE COLOR YELLOW; URINE GLUCOSE (UA) NEGATIVE (NEGATIVE); URINE KETONE NEGATIVE (NEGATIVE); URINE LEUK ESTERASE NEGATIVE (NEGATIVE); URINE NITRITE NEGATIVE (NEGATIVE); URINE PROTEIN TRACE (NEGATIVE)
[2019-08-14] MEDS ORDERED: amLODIPine BESYLATE 10 MG TABLET (FP) PO PRN ×2 (21:25→21:48)
[2019-08-15] MEDS: HEPARIN NA (PORCINE) 5,000 UNITS/ML 1ML VIAL SQ SCH ×3 (05:33→21:35)
--- NOTE | 2019-08-15 09:12 | PN ---
Teaching Attending Note Name of Resident: Fracisco Casillas ATTENDING PHYSICIAN STATEMENT I saw and evaluated the patient. I reviewed the resident's note and discussed the case with the resident. I agree with the resident's findings and plan as documented. Seen and examined; please see resident note for further historical information. I personally verified all cruz historical information and exam findings. Personally interpreted all imaging and diagnostics and reviewed appropriate consults. I reviewed all labs and vital signs as per resident note and EMR as documented. I agree with the above assessment and plan unless supplemented by myself in the following. No further issues documented overnight, remains hemodynamically stable and afebrile. 10 item review of systems completed and is negative aside from as discussed in the subjective data in my own/the resident documentation. VS, labs, imaging reviewed NAD, AAO, resting comfortably in bed. RRR s1/2 no mgr Normal muscle tone, moves all 5 extremities with normal apparent strength Neck is supple, trachea midline, no mercy LN Wheezes appreciated With good air movementwith sym expansion NT ND +BS no mercy organomegaly CN2-12 wnl; no FND NC AT EOMI PERRLA Normal mood, appropriate behavior, euthymic affect No skin breakdown or rashes noted EKG, chest x-ray reviewed. Commented on above. Labs without any white count. Influenza pending, bilirubin elevated to 1.2, low potassium at 3.2, mildly elevated glucose at 133. Negative lipase, normal magnesium. Echocardiogram 2016 reveals LVEF thickness size and function are normal with normal RV and trace TR ASSESSMENT AND PLAN: Patient continues to improve. White count is slightly up which is likely secondary to steroids with absolute neutrophils going from 5.1-9.5. Coags are within normal limits. CO2 is slightly increased which could and or so underlying history of obstructive sleep apnea especially with respect to her BMI of 34.7 kg/m. The patient is indicated as having mild hypermagnesemia which is likely secondary to the infusions received in the ER on arrival, her bilirubin has trended down to within normal limits, her UA is negative. She is positive for influenza B and continues on Tamiflu. She is found to have on her official chest x-ray read from this morning to have no signs of pulmonary edema or fluid overload in the lungs. She is indicated as having a negative BNP at 63.7 and a negative lipase at 98. Problems include: Acute asthma exacerbation History of steroid-induced myopathy Hyperbilirubinemia, chronic Hypokalemia Hyperglycemia
[2019-08-15] MEDS: PANTOPRAZOLE 40 MG TABLET PO SCH (09:47)
[2019-08-15] MEDS: predniSONE 20 MG TABLET (UD) PO SCH (09:47)
[2019-08-15 09:49] LABS: BASO % 0.4 % (0-2.0); HEMATOCRIT 42.7 % (32.4-45.2); HEMOGLOBIN 13.9 GM/dL (10.7-15.3); LYMPH % 14.6 % (8-40); MCH 30.4 pg (25.7-33.7); MCHC 32.6 g/dl (32.0-36.0); MEAN CELL VOLUME 93.2 fl (80-96); MEAN PLT VOLUME 9.8 fl (7.5-11.1); MONO % 9.1 % (3.8-10.2); NEUT % 75.9 % (42.8-82.8); PLATELET COUNT 168 K/MM3 (134-434); RBC 4.58 M/mm3 (3.60-5.2); RDW 13.7 % (11.6-15.6); WHITE BLOOD COUNT 12.6 K/mm3 (4.0-10.0)
[2019-08-15] MEDS: OSELTAMIVIR PHOSPHATE 75 MG CAPSULE PO SCH (09:51)
[2019-08-15] MEDS: ALBUTEROL SO4 2.5/IPRATROPIUM 0.5 INH SOL 3 ML VIAL.NEB. NEB SCH ×4 (10:08→19:59)
[2019-08-15 10:09] LABS: INR 1.07 (0.83-1.09); PROTHROMBIN TIME (PATIENT) 12.6 SEC (9.7-13.0)
[2019-08-15 10:21] LABS: ALBUMIN 3.4 g/dl (3.4-5.0); BILIRUBIN,TOTAL 0.7 mg/dL (0.2-1); BLOOD UREA NITROGEN 25.4 mg/dL (7-18); CALCIUM 9.8 mg/dL (8.5-10.1); MAGNESIUM 2.7 mg/dL (1.8-2.4); PHOSPHOROUS 3.3 mg/dL (2.5-4.9); POTASSIUM 3.8 mmol/L (3.5-5.1); TOT PROT 7.5 g/dl (6.4-8.2)
--- NOTE | 2019-08-15 14:14 | PN ---
Physical Exam: SUBJECTIVE: Patient seen and examined. Patient states she was previously on oxygen therapy at home but lost it due to insurance issues. Feels that she stills needs oxygen at home. At rest she denies SOB. Denies chest pain, abd pain , fever, chills. Endorses a cough. OBJECTIVE: Vital Signs Period Temp Pulse Resp BP Sys/Faulkner Pulse Ox Last 24 Hr 98 F-98.8 F 72-85 18-20 120-155/71-78 91-96 GENERAL: The patient is awake, alert, and fully oriented, in no acute distress. HEAD: Normal with no signs of trauma. EYES: EOMI, no ptosis ENT: MMM NECK: Trachea midline, full range of motion, supple. LUNGS: inspiratory and expiratory wheezing, no accessory muscle use HEART: RRR, no murmur ABDOMEN: Soft, nontender, nondistended, normoactive bowel sounds, no guarding, no rebound EXTREMITIES: 2+ pulses, warm, well-perfused, no edema. NEUROLOGICAL: normal speech, gait not observed. sensation intact throughout. PSYCH: Normal mood, normal affect. SKIN: Warm, dry, normal turgor Laboratory Results - last 24 hr 08/14/19 08/14/19 08/14/19 18:00 18:00 18:30 WBC RBC Hgb Hct MCV MCH MCHC RDW Plt Count MPV Absolute Neuts (auto) Neutrophils % Lymphocytes % Monocytes % Eosinophils % Basophils % Nucleated RBC % PT with INR INR Sodium Potassium Chloride Carbon Dioxide Anion Gap BUN Creatinine Est GFR (CKD-EPI)AfAm Est GFR (CKD-EPI)NonAf Random Glucose Calcium Phosphorus Magnesium Total Bilirubin AST ALT Alkaline Phosphatase Troponin I < 0.02 B-Natriuretic Peptide 63.7 Total Protein Albumin Urine Color Yellow Urine Appearance Clear Urine pH 6.0 Ur Specific [place] 1.018 Urine Protein Trace Urine Glucose (UA) Negative Urine Ketones Negative Urine Blood Negative Urine Nitrite Negative Urine Bilirubin Negative Urine Urobilinogen 1.0 Ur Leukocyte Esterase Negative 08/15/19 08/15/19 08/15/19 07:55 07:55 07:55 WBC 12.6 H RBC 4.58 Hgb 13.9 Hct 42.7 MCV 93.2 MCH 30.4 MCHC 32.6 RDW 13.7 Plt Count 168 MPV 9.8 D Absolute Neuts (auto) 9.5 H Neutrophils % 75.9 D Lymphocytes % 14.6 D Monocytes % 9.1 Eosinophils % 0.0 Basophils % 0.4 Nucleated RBC % 0 PT with INR 12.60 INR 1.07 Sodium 142 Potassium 3.8 Chloride 104 Carbon Dioxide 33 H Anion Gap 5 L BUN 25.4 H Creatinine 1.0 Est GFR (CKD-EPI)AfAm 70.91 Est GFR (CKD-EPI)NonAf 61.19 Random Glucose 126 H Calcium 9.8 Phosphorus 3.3 Magnesium 2.7 H Total Bilirubin 0.7 AST 24 ALT 31 Alkaline Phosphatase 29 L Troponin I B-Natriuretic Peptide Total Protein 7.5 Albumin 3.4 Urine Color Urine Appearance Urine pH Ur Specific [place] Urine Protein Urine Glucose (UA) Urine Ketones Urine Blood Urine Nitrite Urine Bilirubin Urine Urobilinogen Ur Leukocyte Esterase Active Medications Generic Name Dose Route Start Last Admin Trade Name Freq PRN Reason Stop Dose Admin Albuterol Sulfate 1 amp 08/14/19 10:26 08/15/19 03:23 Ventolin 0.083% Nebulizer Soln - NEB 1 amp Q6H PRN Administration SHORT OF BREATH/WHEEZING Albuterol/Ipratropium 1 amp 08/14/19 12:00 08/15/19 11:47 Duoneb - NEB 1 amp RQID IGGY Administration Amlodipine Besylate 10 mg 08/14/19 21:48 Norvasc - PO 08/15/19 19:00 ONCE PRN HYPERTENSION (BP > 160/90) Heparin Sodium (Porcine) 5,000 unit 08/14/19 14:00 08/15/19 05:33 Heparin - SQ 5,000 unit TID IGGY Administration Oseltamivir Phosphate 75 mg 08/14/19 10:00 08/15/19 09:51 Tamiflu - PO 08/19/19 09:59 75 mg DAILY IGGY Administration Pantoprazole Sodium 40 mg 08/14/19 10:00 08/15/19 09:47 Protonix - PO 40 mg DAILY IGGY Administration Prednisone 60 mg 08/14/19 10:00 08/15/19 09:47 Deltasone - PO 60 mg DAILY IGGY Administration ASSESSMENT/PLAN: 58 y/o/f with PMHx of HTN, HLD, GERD (not on medication), and Asthma presents for shortness of breath that has been worsening since Monday. #Asthma Exacerbation - likely secondary to the Flu - Flu B positive - Duonebs RQID - Albuterol PRN - Given Solumedrol 125mg. - Continue Prednisone 60mg - patient failed pre/post oxygen. Needed 4L O2 for SpO2 of 91% on post measurement. Will need home O2 - CXRs without acute pathology #R/O Heart Failure - Trop negative. BNP within normal limits - Echo pending #Suprapubic tenderness - UA negative - Urine culture negative to date, will follow #HTN - Coreg 25mg BID - Continue Hyzaar #HLD - continue Pravastatin #GERD - Protonix 40mg daily #Nausea - Zofran 4mg PRN - QTc 425mg #FEN - no IVF - monitor and replete lytes as needed - Sodium controlled diet #DVT Ppx - Hep SQ #Disposition - patient failed Pre, post. Will need home O2 Visit type - Emergency Visit Emergency Visit: Yes ED Registration Date: 08/14/19 Care time: The patient presented to the Emergency Department on the above date and was hospitalized for further evaluation of their emergent condition. - New Patient This patient is new to me today: Yes Date on this admission: 08/15/19 - Critical Care Critical Care patient: No ATTENDING PHYSICIAN STATEMENT I saw and evaluated the patient. I reviewed the resident's note and discussed the case with the resident. I agree with the resident's findings and plan as documented. SUBJECTIVE: OBJECTIVE: ASSESSMENT AND PLAN:
[2019-08-15] MEDS: CARVEDILOL 25 MG TABLET (FP) PO SCH (21:35)
[2019-08-15] MEDS: ATORVASTATIN CA 10 MG TABLET (FP) PO SCH (21:35)
[2019-08-16] MEDS: HEPARIN NA (PORCINE) 5,000 UNITS/ML 1ML VIAL SQ SCH ×3 (05:24→23:10)
[2019-08-16] MEDS: ALBUTEROL SO4 2.5/IPRATROPIUM 0.5 INH SOL 3 ML VIAL.NEB. NEB SCH ×4 (07:54→20:15)
[2019-08-16 08:38] LABS: HEMATOCRIT 43.3 % (32.4-45.2); HEMOGLOBIN 14.2 GM/dL (10.7-15.3); MCH 30.5 pg (25.7-33.7); MCHC 32.7 g/dl (32.0-36.0); MEAN CELL VOLUME 93.4 fl (80-96); MEAN PLT VOLUME 9.9 fl (7.5-11.1); PLATELET COUNT 186 K/MM3 (134-434); RBC 4.63 M/mm3 (3.60-5.2); RDW 13.9 % (11.6-15.6); WHITE BLOOD COUNT 13.5 K/mm3 (4.0-10.0)
[2019-08-16 09:08] LABS: BLOOD UREA NITROGEN 19.4 mg/dL (7-18); CALCIUM 9.4 mg/dL (8.5-10.1); CREATININE 0.8 mg/dL (0.55-1.3); POTASSIUM 3.4 mmol/L (3.5-5.1)
[2019-08-16] MEDS ORDERED: POTASSIUM CHLORIDE TABS 20 MEQ TABLET.ER (FP) PO ONE (09:45)
[2019-08-16] MEDS ORDERED: PT OWN MED DRAWER 7, Y5N ONE (10:19)
[2019-08-16] MEDS: PANTOPRAZOLE 40 MG TABLET PO SCH (10:25)
[2019-08-16] MEDS: predniSONE 20 MG TABLET (UD) PO SCH (10:25)
[2019-08-16] MEDS: LOSARTAN 50MG/HCTZ 12.5MG 1 TAB (FP) PO SCH (10:25)
[2019-08-16] MEDS: OSELTAMIVIR PHOSPHATE 75 MG CAPSULE PO SCH (10:25)
[2019-08-16] MEDS: amLODIPine BESYLATE 5 MG TABLET (FP) PO SCH (10:25)
[2019-08-16] MEDS: CARVEDILOL 25 MG TABLET (FP) PO SCH ×2 (10:25→23:10)
--- NOTE | 2019-08-16 11:30 | CON.PULM ---
Consult Consult Specialty:: PULMONARY Referred by:: ENZO Reason for Consultation:: INFLU+/WHEEZES - History of Present Illness Chief Complaint: SOB/COUGH/WHEEZE History of Present Illness: 58-year-old female history of asthma now with body aches increased shortness of breath and cough Patient is influenza positive. - History Source History Provided By: Patient, Medical Record Limitations to Obtaining History: Clinical Condition - Past Medical History [employer]ING: No: Alzheimer's Cardio/Vascular: Yes: HTN, Hyperlipdemia. No: AFIB Pulmonary: Yes: Asthma, COPD. No: O2 Dependent, Pneumonia Gastrointestinal: Yes: GERD. No: Ascites ...: No - Past Surgical History Past Surgical History: Yes: None - Alcohol/Substance Use Hx Alcohol Use: No - Smoking History Smoking history: Former smoker Have you smoked in the past 12 months: Yes Aproximately how many cigarettes per day: 8 - Social History History of Recent Travel: No Home Medications - Allergies Allergies/Adverse Reactions: Allergies Allergy/AdvReac Type Severity Reaction Status Date / Time clarithromycin [From Biaxin] Allergy "hives" Verified 08/14/19 01:16 - Home Medications Home Medications: Ambulatory Orders Pravastatin Sodium [Pravachol -] 40 mg PO HS 07/12/15 Carvedilol 25 mg PO BID 04/29/19 Amlodipine Besylate 1 tab PO DAILY 04/30/19 metFORMIN HCL [Metformin HCl ER] 500 mg PO DAILY 04/30/19 Losartan/Hydrochlorothiazide [Hyzaar 100-25 Tablet] 1 tab PO DAILY 08/15/19 Oseltamivir Phosphate [Tamiflu -] 75 mg PO DAILY 3 Days #6 capsule 08/16/19 predniSONE [Deltasone -] 60 mg PO DAILY 5 Days #15 tablet 08/16/19 Family Medical History Family History: Unremarkable Review of Systems - Review of Systems Cardiovascular: denies: Chest Pain Respiratory: reports: Cough, Exercise Intolerance, SOB on Exertion, Wheezing. denies: Hemoptysis Physical Exam Vital Sings: Vital Signs Temperature 97.8 F 08/16/19 10:24 Pulse Rate 58 L 08/16/19 10:24 Respiratory Rate 18 08/16/19 10:24 Blood Pressure 173/86 H 08/16/19 10:24 O2 Sat by Pulse Oximetry (%) 94 L 08/15/19 21:00 Constitutional: Yes: Anxious Eyes: Yes: EOM Intact HENT: Yes: Normocephalic Neck: Yes: Trachea Midline Cardiovascular: Yes: S1, S2 Respiratory: Yes: Diminished, Wheezes Gastrointestinal: Yes: Normal Bowel Sounds Edema: No Integumentary: Yes: WNL Neurological: Yes: Other (?MENTALLY CHALLENGED) Labs: CBC, BMP 08/16/19 06:40 08/16/19 06:40 REST REVIEWED Imaging - Results Chest X-ray: Report Reviewed, Image Reviewed Problem List - Problems (1) Asthma exacerbation Code(s): J45.901 - UNSPECIFIED ASTHMA WITH (ACUTE) EXACERBATION Qualifiers: Asthma severity: mild Asthma persistence: intermittent Qualified Code(s) : J45.21 - Mild intermittent asthma with (acute) exacerbation (2) Influenza B Code(s): J10.1 - FLU DUE TO OTH IDENT INFLUENZA VIRUS W OTH RESP MANIFEST (3) Acute bronchitis Code(s): J20.9 - ACUTE BRONCHITIS, UNSPECIFIED Qualifiers: Bronchitis organism: unspecified organism Qualified Code(s): J20.9 - Acute bronchitis, unspecified Assessment/Plan CONTINUE DUONEBS/STEROIDS/CHECK DAILY PEAK FLOW/O2 PRN TAMIFLU ORDERED NOT READY FOR DISCHARGE Basilia ROSS MD
--- NOTE | 2019-08-16 13:50 | PN ---
Physical Exam: SUBJECTIVE: Patient seen and examined. No acute events overnight. States that her breathing feels better but still feels tight. Denies chest pain, fever, chills, abd pain. OBJECTIVE: Vital Signs Period Temp Pulse Resp BP Sys/Faulkner Pulse Ox Last 24 Hr 97.8 F-98.1 F 58-79 18-20 145-173/67-86 94 GENERAL: The patient is awake, alert, and fully oriented, in no acute distress. HEAD: Normal with no signs of trauma. EYES: EOMI, no ptosis ENT: MMM NECK: Trachea midline, full range of motion, supple. LUNGS: mild inspiratory and expiratory wheezing, improved compared to yesterday , no accessory muscle use HEART: RRR, no murmur ABDOMEN: Soft, nontender, nondistended, normoactive bowel sounds, no guarding, no rebound EXTREMITIES: 2+ pulses, warm, well-perfused, no edema. NEUROLOGICAL: normal speech, gait not observed. sensation intact throughout. PSYCH: Normal mood, normal affect. SKIN: Warm, dry, normal turgor Laboratory Results - last 24 hr 08/16/19 08/16/19 06:40 06:40 WBC 13.5 H RBC 4.63 Hgb 14.2 Hct 43.3 MCV 93.4 MCH 30.5 MCHC 32.7 RDW 13.9 Plt Count 186 MPV 9.9 Sodium 143 Potassium 3.4 L Chloride 103 Carbon Dioxide 34 H Anion Gap 6 L BUN 19.4 H Creatinine 0.8 Est GFR (CKD-EPI)AfAm 92.87 Est GFR (CKD-EPI)NonAf 80.13 Random Glucose 98 Calcium 9.4 Active Medications Generic Name Dose Route Start Last Admin Trade Name Freq PRN Reason Stop Dose Admin Albuterol/Ipratropium 1 amp 08/14/19 12:00 08/16/19 11:21 Duoneb - NEB 1 amp RQID IGGY Administration Amlodipine Besylate 5 mg 08/16/19 10:00 08/16/19 10:25 Norvasc - PO 5 mg DAILY IGGY Administration Atorvastatin Calcium 10 mg 08/15/19 22:00 08/15/19 21:35 Lipitor - PO 10 mg HS IGGY Administration Carvedilol 25 mg 08/15/19 22:00 08/16/19 10:25 Coreg - PO 25 mg BID IGGY Administration HCTZ/Losartan Potassium 2 tab 08/16/19 10:00 08/16/19 10:25 Hyzaar - PO 2 tab DAILY IGGY Administration Heparin Sodium (Porcine) 5,000 unit 08/14/19 14:00 08/16/19 13:35 Heparin - SQ 5,000 unit TID IGGY Administration Oseltamivir Phosphate 75 mg 08/14/19 10:00 08/16/19 10:25 Tamiflu - PO 08/19/19 09:59 75 mg DAILY IGGY Administration Pantoprazole Sodium 40 mg 08/14/19 10:00 08/16/19 10:25 Protonix - PO 40 mg DAILY IGGY Administration Prednisone 60 mg 08/14/19 10:00 08/16/19 10:25 Deltasone - PO 60 mg DAILY IGGY Administration ASSESSMENT/PLAN: 58 y/o/f with PMHx of HTN, HLD, GERD (not on medication), and Asthma presents for shortness of breath that has been worsening since Monday. #Asthma Exacerbation - likely secondary to the Flu - Flu B positive - Duonebs RQID - Albuterol PRN - Given Solumedrol 125mg. - Continue Prednisone 60mg - patient failed pre/post oxygen. Needed 4L O2 for SpO2 of 91% on post measurement. Home O2 arranged - CXRs without acute pathology - check daily peak flow #R/O Heart Failure - Trop negative. BNP within normal limits - Echo pending #Suprapubic tenderness - UA negative - Urine culture growing normal urgenital adrianna #HTN - Coreg 25mg BID - Continue Hyzaar #HLD - continue Pravastatin #GERD - Protonix 40mg daily #Nausea - Zofran 4mg PRN - QTc 425mg #FEN - no IVF - monitor and replete lytes as needed - Sodium controlled diet #DVT Ppx - Hep SQ #Disposition - Per pulm patient not ready for discharge, will reassess tomorrow Visit type - Emergency Visit Emergency Visit: Yes ED Registration Date: 08/14/19 Care time: The patient presented to the Emergency Department on the above date and was hospitalized for further evaluation of their emergent condition. - New Patient This patient is new to me today: No - Critical Care Critical Care patient: No ATTENDING PHYSICIAN STATEMENT I saw and evaluated the patient. I reviewed the resident's note and discussed the case with the resident. I agree with the resident's findings and plan as documented. SUBJECTIVE: OBJECTIVE: ASSESSMENT AND PLAN:
--- NOTE | 2019-08-16 19:14 | PN ---
Teaching Attending Note Name of Resident: Fracisco Casillas ATTENDING PHYSICIAN STATEMENT I saw and evaluated the patient. I reviewed the resident's note and discussed the case with the resident. I agree with the resident's findings and plan as documented. Seen and examined; please see resident note for further historical information. I personally verified all cruz historical information and exam findings. Personally interpreted all imaging and diagnostics and reviewed appropriate consults. I reviewed all labs and vital signs as per resident note and EMR as documented. I agree with the above assessment and plan unless supplemented by myself in the following. Per pulmonary consult will monitor on for for admission date to ensure resolution of her underlying symptoms. Patient is excited to be discharged tomorrow morning and wishes to go early, I stated to her that if all vitals were stable and SPO2 is good and she is not requiring O2 overnight and can ambulate without desaturation tomorrow that she will be discharged home. 10 item review of systems completed and is negative aside from as discussed in the subjective data in my own/the resident documentation. VS, labs, imaging reviewed NAD, AAO, resting comfortably in bed. RRR s1/2 no mgr Normal muscle tone, moves all 5 extremities with normal apparent strength Neck is supple, trachea midline, no mercy LN Lungs with improved wheezes, with sym expansion NT ND +BS no mercy organomegaly CN2-12 wnl; no FND NC AT EOMI PERRLA Normal mood, appropriate behavior, euthymic affect No skin breakdown or rashes noted CT scan discussed. Pulmonary consult reviewed. ASSESSMENT AND PLAN: Continue bronchodilators, prednisone, anticipate discharge in the morning. Agree with resident's assessment and plan as documented in today's note
[2019-08-16] MEDS: DOCUSATE SODIUM 100 MG CAPSULE (FP) PO SCH (23:11)
[2019-08-16] MEDS: SENNOSIDES 8.6MG TABLET (FP) PO SCH (23:11)
[2019-08-16] MEDS: ATORVASTATIN CA 10 MG TABLET (FP) PO SCH (23:11)
[2019-08-17] MEDS: HEPARIN NA (PORCINE) 5,000 UNITS/ML 1ML VIAL SQ SCH ×2 (05:23→15:45)
[2019-08-17] MEDS: ALBUTEROL SO4 2.5/IPRATROPIUM 0.5 INH SOL 3 ML VIAL.NEB. NEB SCH ×2 (07:30→11:44)
[2019-08-17 08:06] LABS: BLOOD UREA NITROGEN 16.2 mg/dL (7-18); CALCIUM 9.4 mg/dL (8.5-10.1); CREATININE 0.8 mg/dL (0.55-1.3); POTASSIUM 4.1 mmol/L (3.5-5.1)
--- NOTE | 2019-08-17 09:11 | DS ---
Physical Exam: SUBJECTIVE/Course: Patient seen and examined; SOB resolved. Feels well and wants to go home. Patient is a 58-year-old female with a history of asthma with presenting symptoms of malaise, shortness of breath, found to have influenza positive. She is having an asthma exacerbation secondary to this. We are following peak flows, continuing Tamiflu, and will discharge if cleared with pulmonary medicine this afternoon. She has oxygen to take home which has been arranged, she will be given a peak flow meter to monitor at home and she Oertli follow her peak flows. She is obese and will need to follow-up with pulmonary medicine /sleep medicine for an outpatient sleep study. 10 item review of systems completed and is negative aside from as discussed in the subjective data in my own/the resident documentation. OBJECTIVE: Vital Signs Period Temp Pulse Resp BP Sys/Faulkner Pulse Ox Last 24 Hr 97.6 F-98.2 F 54-121 18-20 143-173/72-86 97-99 PHYSICAL EXAM GENERAL: The patient is awake, alert, and fully oriented, in no acute distress. HEAD: Normal with no signs of trauma. EYES: PERRL, extraocular movements intact, sclera anicteric, conjunctiva clear. ENT: Ears normal, nares patent, oropharynx clear without exudates, moist mucous membranes. NECK: Trachea midline, full range of motion, supple. LUNGS: Breath sounds equal, clear to auscultation bilaterally, no wheezes, no crackles, no accessory muscle use. HEART: Regular rate and rhythm, S1, S2 without murmur, rub or gallop. ABDOMEN: Soft, nontender, nondistended, normoactive bowel sounds, no guarding, no rebound, no hepatosplenomegaly, no masses. EXTREMITIES: 2+ pulses, warm, well-perfused, no edema. NEUROLOGICAL: Cranial nerves II through XII grossly intact. Normal speech, gait not observed. PSYCH: Normal mood, normal affect. SKIN: Warm, dry, normal turgor, no rashes or lesions noted. LABS Laboratory Results - last 24 hr 08/17/19 05:30 Sodium 142 Potassium 4.1 Chloride 104 Carbon Dioxide 35 H Anion Gap 3 L BUN 16.2 Creatinine 0.8 Est GFR (CKD-EPI)AfAm 92.87 Est GFR (CKD-EPI)NonAf 80.13 Random Glucose 91 Calcium 9.4 HOSPITAL COURSE: Date of Admission:08/14/19 Home Medications Medication Instructions Recorded Pravastatin Sodium [Pravachol -] 40 mg PO HS 07/12/15 Carvedilol 25 mg PO BID 04/29/19 Amlodipine Besylate 1 tab PO DAILY 04/30/19 metFORMIN HCL [Metformin HCl ER] 500 mg PO DAILY 04/30/19 Losartan/Hydrochlorothiazide 1 tab PO DAILY 08/15/19 [Hyzaar 100-25 Tablet] Budesonide/Formeterol Fumarate 2 puff IH BID #1 inhaler 08/16/19 [SYMBICORT 80/4.5mcg -] Oseltamivir Phosphate [Tamiflu -] 75 mg PO DAILY 3 Days #6 capsule 08/16/19 Tiotropium [place] [Spiriva 2 puff IH DAILY PRN #1 mist.inhal 08/16/19 Respimat] predniSONE [Deltasone -] 60 mg PO DAILY 5 Days #15 tablet 08/16/19 Microbiology 08/14/19 18:30 Urine - Urine Clean Catch Urine Culture - Final Normal Urogenital Danyelle Date of Discharge: 08/17/19 Minutes to complete discharge: 33 Discharge Summary Problems reviewed: Yes Reason For Visit: ASTHMA,INFLUENZA DUE TO INFLUENZA VIRUS TYPE B Current Active Problems Asthma exacerbation (Acute) Influenza B (Acute) Condition: Improved - Instructions Diet, Activity, Other Instructions: You presented to the hospital due to worsening shortness of breath. You were diagnosed with the flu and were started on Tamiflu and steroids with improvement. Your oxygen saturation was noted to be low after exercise so we believe you need home oxygen and arrangements have been made to send you have home an oxygen machine. Medication Changes: 1. CONTINUE Tamiflu 75mg twice daily for 3 more days. 2. CONTINUE Prednisone 60mg daily for 5 more day. Follow up with the following physicians: 1. Please follow up with your primary care provider, Dr. Bloom, within 3-5 days of discharge for further management of your medical conditions and to discuss the medications that were started while you were in the hospital. 2. Recommended to follow up with a Wheel Press Operator (lung doctor) regarding further management of your asthma and home oxygen needs. I have included referrals for three different pulmonologists in the area. If none of these doctors take your insurance I recommend contacting your insurance company directly and asking for a referral to a face painter that will take your insurance. Activity and Diet 1. Please monitor your diet as you need to intake foods with less salt and sugar. 2. Recommend daily exercise to help strengthen your muscles. Continue all your other medications as prescribed Please return to the ER if you have any signs or symptoms of chest pain, shortness of breath, uncontrollable fever, chills, nausea, vomiting, numbness, tingling, or weakness in any part of your body, changes in vision, or slurred speech. Please return to the ER if symptoms persist, worsen, or new symptoms arise. Referrals: Papo Kang MD [Staff Physician] - (3-5 days with resident clinic at [facility]) Yayo Moe MD [Non Staff, Medical] - John Fowler [Non Staff, Medical] - Brody Meeks MD [Non Staff, Medical] - Disposition: VNS/HOME HEALTH CARE - Home Medications Comprehensive Discharge Medication List: Ambulatory Orders Pravastatin Sodium [Pravachol -] 40 mg PO HS 07/12/15 Carvedilol 25 mg PO BID 04/29/19 Amlodipine Besylate 1 tab PO DAILY 04/30/19 metFORMIN HCL [Metformin HCl ER] 500 mg PO DAILY 04/30/19 Losartan/Hydrochlorothiazide [Hyzaar 100-25 Tablet] 1 tab PO DAILY 08/15/19 Budesonide/Formeterol Fumarate [SYMBICORT 80/4.5mcg -] 2 puff IH BID #1 inhaler 08/16/19 Oseltamivir Phosphate [Tamiflu -] 75 mg PO DAILY 3 Days #6 capsule 08/16/19 Tiotropium [place] [Spiriva Respimat] 2 puff IH DAILY PRN #1 mist.inhal predniSONE [Deltasone -] 60 mg PO DAILY 5 Days #15 tablet 08/16/19 This patient is new to me today: No Emergency Visit: No Critical Care patient: No - Discharge Referral Referred to [facility] Yes Physician Referral: Abdiel Villanueva MD (Int Med)
[2019-08-17] MEDS ORDERED: PT OWN MED DRAWER 7, Y5N ONE (10:31)
[2019-08-17] MEDS: SENNOSIDES 8.6MG TABLET (FP) PO SCH (10:36)
[2019-08-17] MEDS: PANTOPRAZOLE 40 MG TABLET PO SCH (10:36)
[2019-08-17] MEDS: OSELTAMIVIR PHOSPHATE 75 MG CAPSULE PO SCH (10:36)
[2019-08-17] MEDS: DOCUSATE SODIUM 100 MG CAPSULE (FP) PO SCH (10:36)
[2019-08-17] MEDS: amLODIPine BESYLATE 5 MG TABLET (FP) PO SCH (10:36)
[2019-08-17] MEDS: predniSONE 20 MG TABLET (UD) PO SCH (10:36)
[2019-08-17] MEDS: CARVEDILOL 25 MG TABLET (FP) PO SCH (10:36)
[2019-08-17] MEDS: LOSARTAN 50MG/HCTZ 12.5MG 1 TAB (FP) PO SCH (10:36)
--- NOTE | 2019-08-17 13:53 | PN ---
Progress Note (short form) - Note Progress Note: PULMONARY OOB TO CHAIR HAS BEEN DISCHARGED BY PRIMARY VSS/AFEBRILE ANICTERIC DIMINISHED B/L BREATH SOUNDS S1S2 BS+ NO EDEMA LABS/MEDS/MICRO/XRAYS REVIEWED INFLU Luke Butler.ASTHMA GERD WOULD CONTINUE STEROIDS TO TAPER AN OUTPATIENT BRONCHODILATORS/TAMIFLU TO COMPLETION Basilia ROSS MD Problem List - Problems (1) Asthma exacerbation Code(s): J45.901 - UNSPECIFIED ASTHMA WITH (ACUTE) EXACERBATION Qualifiers: Asthma severity: mild Asthma persistence: intermittent Qualified Code(s) : J45.21 - Mild intermittent asthma with (acute) exacerbation (2) Influenza B Code(s): J10.1 - FLU DUE TO OTH IDENT INFLUENZA VIRUS W OTH RESP MANIFEST (3) Acute bronchitis Code(s): J20.9 - ACUTE BRONCHITIS, UNSPECIFIED Qualifiers: Bronchitis organism: unspecified organism Qualified Code(s): J20.9 - Acute bronchitis, unspecified
[2019-08-17 15:48] VITALS: BP 142/74; PULSE 57; TEMP 98.2
== END 2019-08-17 15:53 | disposition home health service (06) | DRG 194 ==
LOC: JER 00:32 → JERBED 05:42 → J8W 15:25
PROVIDERS: ADMIT Internal Medicine; ATTEND Internal Medicine
DX: J10.1 Influenza due to other identified influenza virus with other respiratory manifestations (principal); J45.21 Mild intermittent asthma with (acute) exacerbation; J20.9 Acute bronchitis, unspecified; I10 Essential (primary) hypertension; E78.5 Hyperlipidemia, unspecified; K21.9 Gastro-esophageal reflux disease without esophagitis; J45.909 Unspecified asthma, uncomplicated; E66.9 Obesity, unspecified; Z68.34 Body mass index [BMI] 34.0-34.9, adult; R11.0 Nausea; E80.6 Other disorders of bilirubin metabolism; E87.6 Hypokalemia; R73.9 Hyperglycemia, unspecified
CPT/HCPCS: 36415; 71045-TC-FY; 71046-TC-FY; 80048; 80053; 81003; 83605; 83690; 83735; 83880; 84100; 84484; 85025; 85027; 85610; 87086; 87804; 93005; 93010; 94010; 94150; 94640; 94761; 97116-GP; 97161-GP; 99282-25; J0131; J1644

== ENCOUNTER 2020-01-26 01:47 | Emergency (ER) | payer OTHER ==
[2020-01-26 02:18] VITALS: TEMP 98.8; BMI 22.3
--- NOTE | 2020-01-26 02:34 | PDOC ---
Attending Attestation - Resident Resident Name: Ludin Villalobos - ED Attending Attestation I have performed the following: I have examined & evaluated the patient, The case was reviewed & discussed with the resident, I agree w/resident's findings & plan - HPI HPI: 01/26/20 23:30 Paula Jeffery is a 59 y/o female presenting today with worsening shoulder pain that started on Monday. Reports gradual onset. States that she was carrying some groceries on the left shoulder that day. Reports that the pain has been worsening and she is concerned about dislocation. No fall/trauma. She is able to flex and extend the shoulder but is unable to abduct 2/2 pain. No chest pain/shortness of breath. No headache. No other joint or extremity swelling or injury or pain. - Physicial Exam PE: 01/26/20 23:30 Agree with resident exam. Pt has exquisite point tenderness over the mid- superior lateral aspect of the deltoid/shoulder. She has pain throughout the entire deltoid with palpation. Pt has no redness, no buising, no swelling, no crepitus, no warmth. Pt has pain with passive adduction of the shoulder. She is able to flex and extend the shoulder but has pain with any movement. - Medical Decision Making 01/26/20 04:25 This is likely calcific tendonitis of the shoulder. 01/26/20 23:35 Pt will not be placed in sling. She will follow with ortho, physical rehab, and NSAIDS and lidoderm patches. MRI as needed. Discharge - Discharge Information Problems reviewed: Yes Clinical Impression/Diagnosis: Calcific tendinitis of shoulder Condition: Stable Disposition: HOME - Additional Discharge Information Prescriptions: Lidocaine 5% Patch [Lidoderm Patch -] 1 patch TP DAILY #30 patch Methocarbamol [Robaxin -] 500 mg PO TID #30 tablet - Follow up/Referral Referrals: Yariel Huerta DO [Staff Physician] - Shannan Bloom [Primary Care Provider] - - Patient Discharge Instructions Patient Printed Discharge Instructions: DI for Frozen Shoulder, Calcific Tendonitis of the Shoulder Additional Instructions: Please take Tylenol as needed for your shoulder pain. Follow instructions on the package. Please make a follow up appointment with your primary care doctor and orthopedics for physical therapy and further evaluation (referral provided here). If you experience any new, worsening, or concerning symptoms, including worsening pain, numbness, tingling, or any other concerns, please return to the emergency department. - Post Discharge Activity
[2020-01-26] MEDS ORDERED: ACETAMINOPHEN 325 MG TABLET (FP) PO ONE (02:53)
--- NOTE | 2020-01-26 02:53 | PDOC ---
History of Present Illness <Mana Ball - Last Filed: 01/26/20 04:26> - History of Present Illness Initial Comments: abigail Jeffery is a 59 y/o female presenting today with worsening shoulder pain that started on Monday. Reports gradual onset. States that she was carrying some groceries on the left shoulder that day. Reports that the pain has been worsening and she is concerned about dislocation. No fall/trauma. She is able to flex and extend the shoulder but is unable to abduct 2/2 pain. No chest pain/shortness of breath. No headache. No other joint or extremity swelling or injury or pain. <Ludin Villalobos - Last Filed: 01/26/20 21:15> - General Stated Complaint: LEFT SHOULDER PAIN Time Seen by Provider: 01/26/20 02:28 Past History <Mana Ball - Last Filed: 01/26/20 04:26> - Medical History Anemia: No Asthma: Yes (seasonal) Cancer: No Cardiac Disorders: No CVA: No COPD: No CHF: No Dementia: No Diabetes: No GI Disorders: Yes (acid reflux) Disorders: No HTN: Yes Hypercholesterolemia: Yes Liver Disease: No Seizures: No Thyroid Disease: No - Surgical History Abdominal Surgery: No Appendectomy: No Cardiac Surgery: No Cholecystectomy: No Lung Surgery: No Neurologic Surgery: No Orthopedic Surgery: No - Immunization History Immunization Up to Date: Yes - Psycho-Social/Smoking History Smoking History: Unknown if ever smoked Have you smoked in the past 12 months: Yes Number of Cigarettes Smoked Daily: 8 'Breaking Loose' booklet given: 04/30/19 <Ludin Villalobos - Last Filed: 01/26/20 21:15> - Medical History Allergies/Adverse Reactions: Allergies Allergy/AdvReac Type Severity Reaction Status Date / Time clarithromycin [From Biaxin] Allergy "hives" Verified 08/14/19 01:16 Home Medications: Ambulatory Orders Pravastatin Sodium [Pravachol -] 40 mg PO HS 07/12/15 Amlodipine Besylate 1 tab PO DAILY 04/30/19 metFORMIN HCL [Metformin HCl ER] 500 mg PO DAILY 04/30/19 Oseltamivir Phosphate [Tamiflu -] 75 mg PO DAILY 3 Days #6 capsule 08/16/19 predniSONE [Deltasone -] 60 mg PO DAILY 5 Days #15 tablet 08/16/19 Amlodipine Besylate [Norvasc -] 5 mg PO DAILY #30 tablet 08/17/19 Carvedilol [Coreg -] 25 mg PO BID 30 Days tablet 08/17/19 Fluticasone/Salmeterol [Advair 250-50 Diskus] 1 each IH DAILY #1 blst.w.dev 08/17/19 Losartan/Hydrochlorothiazide [Hyzaar 100-25 Tablet] 1 tab PO DAILY 30 Days #30 tablet 08/17/19 Lidocaine 5% Patch [Lidoderm Patch -] 1 patch TP DAILY #30 patch 01/26/20 Methocarbamol [Robaxin -] 500 mg PO TID #30 tablet 01/26/20 Review of Systems - Review of Systems Comments:: GENERAL/CONSTITUTIONAL: No fever or chills. No weakness._ HEAD, EYES, EARS, NOSE AND THROAT: No change in vision. No change in hearing. No sore throat._ CARDIOVASCULAR: No chest pain or shortness of breath_ RESPIRATORY: Denies cough, hemoptysis_ GASTROINTESTINAL: No nausea, vomiting, diarrhea or constipation._ GENITOURINARY: No dysuria, frequency, or change in urination._ MUSCULOSKELETAL: Reports left shoulder pain worse on abduction. SKIN: No rash_ NEUROLOGIC: No headache, vertigo, loss of consciousness, or change in strength/sensation._ ENDOCRINE: No increased thirst. No abnormal weight change_ HEMATOLOGIC/LYMPHATIC: No anemia, easy bleeding, or history of blood clots._ ALLERGIC/IMMUNOLOGIC: No hives or skin allergy._ <Ludin Villalobos - Last Filed: 01/26/20 21:15> *Physical Exam - Vital Signs Last Vital Signs Temp Pulse Resp BP Pulse Ox 98.8 F 88 17 173/79 H 98 01/26/20 02:16 01/26/20 02:01/26/20 02:01/26/20 02:01/26/20 02:16 <Mana Ball - Last Filed: 01/26/20 04:26> - Vital Signs Last Vital Signs Temp Pulse Resp BP Pulse Ox 98.8 F 88 17 173/79 H 98 01/26/20 02:16 01/26/20 02:16 01/26/20 02:16 01/26/20 02:01/26/20 02:16 - Physical Exam GENERAL: Awake, alert, and oriented to person/place/time, in no acute distress_ HEAD: No signs of trauma, normocephalic, atraumatic _ EYES: PERRLA, EOMI, sclera anicteric, conjunctiva clear_ ENT: Hearing grossly normal, nares patent, oropharynx clear without exudates. No uvular deviation. Moist mucosa_ NECK: Normal ROM, supple, no lymphadenopathy, JVD, or masses_ LUNGS: No distress, speaks in full sentences, clear to auscultation bilaterally _ HEART: Regular rate and rhythm, normal S1 and S2, no murmurs appreciated, peripheral pulses normal and equal bilaterally._ ABDOMEN: Soft, nontender, normoactive bowel sounds. No guarding, no rebound. No masses_ EXTREMITIES: Normal inspection, Normal range of motion, no edema. No clubbing or cyanosis. No obvious dislocation or difference on palpation between left and right shoulders. LUE: Inspection: No erythema or ecchymosis. No tenderness, no obvious abnormalities, no open wounds. Compartments soft and compressible, pain within proportion, no pain to passive stretch Sensation: sensation present to light touch m/r/u n Motor: intact AIN/PIN/Ulnar in hand; 5/5 Wrist flex/ext; 5/5 Elbow flex/ext; 5/5 Shoulder Flex/ext, unable to assess abduction secondary to pain. Vascular: 2+ radial pulse palpated, BCR all fingers <2 sec. NEUROLOGICAL: Cranial nerves II through XII grossly intact. Normal speech, normal gait, no focal sensorimotor deficits _ SKIN: Warm, Dry, normal turgor, no rashes or lesions noted_ <Ludin Villalobos - Last Filed: 01/26/20 21:15> ED Treatment Course - Medications Given in the ED: ED Medications Discontinued Medications Generic Name Dose Route Start Last Admin Trade Name Freq PRN Reason Stop Dose Admin Acetaminophen 650 mg 01/26/20 02:53 01/26/20 03:33 Tylenol - PO 01/26/20 02:54 650 mg ONCE ONE Administration <Mana Ball - Last Filed: 01/26/20 04:26> Medical Decision Making - Medical Decision Making 59F presenting today with worsening left shoulder pain that started on Monday. Normal flex/ext, limited abduction. LUE neurovascularly intact. -XR left shoulder -pain control 01/26/20 03:58 XR left shoulder shows no acute fracture or obvious dislocation Plan to d/c home with PCP and ortho f/u. Tylenol PRN for pain control. <Ludin Villalobos - Last Filed: 01/26/20 21:15> Discharge - Discharge Information Problems reviewed: Yes - Admission No <Mana Ball - Last Filed: 01/26/20 04:26> - Discharge Information Problems reviewed: Yes - Admission No <Ludin Villalobos - Last Filed: 01/26/20 21:15> - Discharge Information Clinical Impression/Diagnosis: Calcific tendinitis of shoulder Condition: Stable Disposition: HOME - Additional Discharge Information Prescriptions: Lidocaine 5% Patch [Lidoderm Patch -] 1 patch TP DAILY #30 patch Methocarbamol [Robaxin -] 500 mg PO TID #30 tablet - Follow up/Referral Referrals: Yariel Huerta DO [Staff Physician] - Shnanan Bloom [Primary Care Provider] - - Patient Discharge Instructions Patient Printed Discharge Instructions: DI for Frozen Shoulder, Calcific Tendonitis of the Shoulder Additional Instructions: Please take Tylenol as needed for your shoulder pain. Follow instructions on the package. Please make a follow up appointment with your primary care doctor and orthopedics for physical therapy and further evaluation (referral provided here). If you experience any new, worsening, or concerning symptoms, including worsening pain, numbness, tingling, or any other concerns, please return to the emergency department. - Post Discharge Activity
[2020-01-26] MEDS ORDERED: ACETAMINOPHEN 325 MG TABLET (FP) ONE ×2 (03:24→03:29)
[2020-01-26] MEDS ORDERED: METHOCARBAMOL 500 MG TABLET PO ONE (04:23)
[2020-01-26] MEDS ORDERED: METHOCARBAMOL 500 MG TABLET ONE (04:29)
[2020-01-26 04:59] VITALS: BP 151/82; PULSE 82
== END 2020-01-26 04:47 | disposition home or self-care (01) ==
LOC: JER 01:47
DX: M75.32 Calcific tendinitis of left shoulder (principal)
CPT/HCPCS: 73030-TC-LT-FY; 99284-25

== ENCOUNTER 2021-08-12 04:50 | Day surgery (SDC) | payer OTHER ==
[2021-08-06 15:04] VITALS: BMI 36.8
[2021-08-12] MEDS ORDERED: LIDOCAINE HCL 2% JELLY 10 ML CARTRIDGE ONE (09:22)
[2021-08-12 09:48] VITALS: TEMP 97.5
[2021-08-12 10:45] VITALS: BP 123/56; PULSE 78
== END 2021-08-12 10:50 | disposition home or self-care (01) ==
LOC: JASU-ENDO 04:50
PROVIDERS: ATTEND Internal Medicine Gastroenterology
PROC: 0DBL8ZX Excision of Transverse Colon, Via Natural or Artificial Opening Endoscopic, Diagnostic (ICD-10-PCS; principal; 2021-08-12 09:30)
DX: K64.8 Other hemorrhoids (principal); K64.4 Residual hemorrhoidal skin tags; D12.3 Benign neoplasm of transverse colon
CPT/HCPCS: 82962; 88305-TC

== ENCOUNTER → 2021-08-26 | Day surgery (SDC) | payer OTHER | END | disposition home or self-care (01) | LOC: FMAMMOTONE 09:32 | PROVIDERS: ATTEND Surgery Surgical Oncology | PROC: 0HBT3ZX Excision of Right Breast, Percutaneous Approach, Diagnostic (ICD-10-PCS; principal; 2021-08-26) | DX: D24.1 Benign neoplasm of right breast (principal); R92.0 Mammographic microcalcification found on diagnostic imaging of breast | CPT/HCPCS: 19081; 76098-TC-FY; 87899; 88305-TC; A4648 ==

== ENCOUNTER 2022-05-18 10:33 | Inpatient (IN) | payer OTHER ==
[2022-05-18 11:23] VITALS: BMI 36.0
[2022-05-18] MEDS ORDERED: MAG HYDROX/AL HYDROX/SIMETH 30 ML UNIT-DOSE CUP PO ONE (12:29)
[2022-05-18] MEDS ORDERED: ACETAMINOPHEN 1000 MG/100 ML BAG IVPB ONE (12:29)
[2022-05-18] MEDS ORDERED: SODIUM CHLORIDE 1,000 ML IV STA ×2 (12:29→16:34)
[2022-05-18] MEDS ORDERED: MAG HYDROX/AL HYDROX/SIMETH 30 ML UNIT-DOSE CUP ONE (12:41)
[2022-05-18] MEDS ORDERED: ACETAMINOPHEN INJECTION 100 ML IVPB ONE (12:41)
[2022-05-18 14:13] LABS: BASO % 0.3 % (0-2.0); EOS % 0.2 % (0-4.5); HEMATOCRIT 45.1 % (32.4-45.2); LYMPH % 31.4 % (8-40); MCH 31.1 pg (25.7-33.7); MCHC 33.2 g/dl (32.0-36.0); MEAN CELL VOLUME 93.5 fl (80-96); MEAN PLT VOLUME 10.3 fl (7.5-11.1); MONO % 12.4 % (3.8-10.2); NEUT % 55.7 % (42.8-82.8); PLATELET COUNT 192 10^3/uL (134-434); RBC 4.82 M/mm3 (3.60-5.2); RDW 13.6 % (11.6-15.6); WHITE BLOOD COUNT 7.3 K/mm3 (4.0-10.0)
[2022-05-18 14:19] LABS: INR 1.12 (0.83-1.09); PROTHROMBIN TIME (PATIENT) 12.9 SEC (9.7-13.0)
[2022-05-18 14:32] LABS: CALCIUM 10.3 mg/dL (8.5-10.1)
[2022-05-18 14:33] LABS: ALBUMIN 3.7 g/dl (3.4-5.0); BLOOD UREA NITROGEN 8.4 mg/dL (7-18)
[2022-05-18 14:36] LABS: CREATININE 0.9 mg/dL (0.55-1.3)
[2022-05-18 14:37] LABS: TOT PROT 7.7 g/dl (6.4-8.2)
[2022-05-18 16:01] LABS: PH,URINE 6.5 (5.0-8.0); URINE APPEARANCE CLEAR; URINE BILIRUBIN NEGATIVE (NEGATIVE); URINE COLOR YELLOW; URINE GLUCOSE (UA) NEGATIVE (NEGATIVE); URINE KETONE NEGATIVE (NEGATIVE); URINE LEUK ESTERASE NEGATIVE (NEGATIVE); URINE NITRITE NEGATIVE (NEGATIVE); URINE PROTEIN NEGATIVE (NEGATIVE); URINE UROBILINOGEN 0.2 mg/dL (0.2-1.0)
[2022-05-18] MEDS ORDERED: morphine CARPU-JECT 4 MG/1 ML DISP.SYRIN IVPUSH ONE (16:40)
[2022-05-18] MEDS ORDERED: morphine SULFATE 4 MG/ML VIAL ONE (17:15)
[2022-05-19] MEDS ORDERED: amLODIPine BESYLATE 10 MG TABLET (FP) PO ONE (01:40)
[2022-05-19] MEDS ORDERED: ACETAMINOPHEN INJECTION 100 ML IVPB ONE (01:48)
[2022-05-19] MEDS ORDERED: ACETAMINOPHEN 1000 MG/100 ML BAG IVPB ONE (02:15)
[2022-05-19] MEDS: LACTATED RINGERS SOLUTION 1,000 ML/1,000 ML INFUS.BAG IV SCH ×2 (02:47→13:39)
[2022-05-19] MEDS ORDERED: ACETAMINOPHEN 1000 MG/100 ML BAG IVPB PRN (03:26)
[2022-05-19 08:40] LABS: CALCIUM 9.6 mg/dL (8.5-10.1)
[2022-05-19 08:41] LABS: ALBUMIN 3.3 g/dl (3.4-5.0); BLOOD UREA NITROGEN 7.8 mg/dL (7-18); MAGNESIUM 1.7 mg/dL (1.8-2.4)
[2022-05-19 08:44] LABS: CREATININE 0.7 mg/dL (0.55-1.3); PHOSPHOROUS 3.7 mg/dL (2.5-4.9)
[2022-05-19 08:45] LABS: BILIRUBIN,TOTAL 0.7 mg/dL (0.2-1); TOT PROT 6.9 g/dl (6.4-8.2)
[2022-05-19] MEDS ORDERED: PANTOPRAZOLE 40 MG TABLET PO ONE (09:23)
[2022-05-19] MEDS ORDERED: amLODIPine BESYLATE 5 MG TABLET (FP) ONE ×2 (09:23→09:24)
[2022-05-19] MEDS ORDERED: LOSARTAN POTASSIUM 50 MG TABLET ONE (09:23)
[2022-05-19] MEDS ORDERED: ASPIRIN 81 MG CHEWABLE TABLETS ONE (09:24)
[2022-05-19] MEDS ORDERED: ENOXAPARIN NA (PORCINE) 40 MG/0.4 ML DISP.SYRIN SQ ONE (09:24)
[2022-05-19] MEDS: ENOXAPARIN NA (PORCINE) 40 MG/0.4 ML DISP.SYRIN SQ SCH (09:30)
[2022-05-19] MEDS: LOSARTAN POTASSIUM 50 MG TABLET PO SCH (09:30)
[2022-05-19] MEDS: ASPIRIN 81 MG CHEWABLE TABLETS PO SCH (09:30)
[2022-05-19] MEDS: PANTOPRAZOLE 40 MG TABLET PO SCH (09:31)
[2022-05-19] MEDS: amLODIPine BESYLATE 5 MG TABLET (FP) PO SCH (09:31)
[2022-05-19] MEDS ORDERED: ERGOCALCIFEROL (VIT D2) 50,000 UNIT (1.25 MG) CAPSULE PO SCH (10:00)
[2022-05-19 10:25] LABS: BASO % 0.5 % (0-2.0); EOS % 0.2 % (0-4.5); HEMATOCRIT 40.8 % (32.4-45.2); HEMOGLOBIN 13.7 GM/dL (10.7-15.3); LYMPH % 29.6 % (8-40); MCH 31.2 pg (25.7-33.7); MCHC 33.6 g/dl (32.0-36.0); MEAN PLT VOLUME 9.5 fl (7.5-11.1); MONO % 12.9 % (3.8-10.2); NEUT % 56.8 % (42.8-82.8); PLATELET COUNT 169 10^3/uL (134-434); RBC 4.39 M/mm3 (3.60-5.2); RDW 13.4 % (11.6-15.6); WHITE BLOOD COUNT 6.3 K/mm3 (4.0-10.0)
[2022-05-19] MEDS ORDERED: MAGNESIUM OXIDE 400 MG TABLET (FP) PO ONE (12:00)
[2022-05-19] MEDS ORDERED: MAGNESIUM OXIDE 400 MG TABLET (FP) ONE (12:36)
[2022-05-19] MEDS: BUDESONIDE/FORMETEROL FUMARATE 80/4.5 mcg INHALER IH SCH ×2 (12:58→22:29)
[2022-05-19] MEDS: NICOTINE 21 MG/24 HOURS TOPICAL PATCH TD SCH (15:32)
[2022-05-19] MEDS: INSULIN SLIDING SCALE (NOVOLOG) 1 VIAL SQ SCH ×2 (17:15→22:34)
[2022-05-19] MEDS: ATORVASTATIN CA 10 MG TABLET (FP) PO SCH (21:31)
[2022-05-20] MEDS: LACTATED RINGERS SOLUTION 1,000 ML/1,000 ML INFUS.BAG IV SCH (06:03)
[2022-05-20] MEDS: INSULIN SLIDING SCALE (NOVOLOG) 1 VIAL SQ SCH ×4 (06:06→22:26)
[2022-05-20 08:25] LABS: HEMATOCRIT 39.3 % (32.4-45.2); HEMOGLOBIN 13.6 GM/dL (10.7-15.3); MCH 31.8 pg (25.7-33.7); MCHC 34.5 g/dl (32.0-36.0); MEAN CELL VOLUME 92.2 fl (80-96); MEAN PLT VOLUME 9.3 fl (7.5-11.1); PLATELET COUNT 160 10^3/uL (134-434); RBC 4.26 M/mm3 (3.60-5.2); RDW 13.5 % (11.6-15.6)
[2022-05-20 08:42] LABS: ALBUMIN 3.3 g/dl (3.4-5.0); BLOOD UREA NITROGEN 6.4 mg/dL (7-18); CREATININE 0.7 mg/dL (0.55-1.3)
[2022-05-20 08:43] LABS: CALCIUM 9.2 mg/dL (8.5-10.1); TOT PROT 6.9 g/dl (6.4-8.2)
[2022-05-20 08:44] LABS: MAGNESIUM 1.7 mg/dL (1.8-2.4)
[2022-05-20 08:50] LABS: BILIRUBIN,TOTAL 0.7 mg/dL (0.2-1)
[2022-05-20] MEDS ORDERED: POTASSIUM CHLORIDE ORAL LIQUID 20 MEQ/15 ML PO ONE (10:03)
[2022-05-20] MEDS ORDERED: MAGNESIUM SULF 50% (8.12 MEQ/2 ML-1 GM VIAL) IVPB ONE (10:03)
[2022-05-20] MEDS: ENOXAPARIN NA (PORCINE) 40 MG/0.4 ML DISP.SYRIN SQ SCH (10:48)
[2022-05-20] MEDS: NICOTINE 21 MG/24 HOURS TOPICAL PATCH TD SCH (10:48)
[2022-05-20] MEDS: PANTOPRAZOLE 40 MG TABLET PO SCH (10:48)
[2022-05-20] MEDS: LOSARTAN POTASSIUM 50 MG TABLET PO SCH (10:48)
[2022-05-20] MEDS: amLODIPine BESYLATE 5 MG TABLET (FP) PO SCH (10:48)
[2022-05-20] MEDS: ASPIRIN 81 MG CHEWABLE TABLETS PO SCH (10:48)
[2022-05-20] MEDS ORDERED: BISACODYL 10 MG SUPP.RECT PR ONE (11:12)
[2022-05-20] MEDS ORDERED: ACETAMINOPHEN 1000 MG/100 ML BAG IVPB PRN (11:15)
[2022-05-20] MEDS: BUDESONIDE/FORMETEROL FUMARATE 80/4.5 mcg INHALER IH SCH ×2 (11:28→22:24)
[2022-05-20] MEDS ORDERED: INSULIN (NOVOLOG) ASPART 100 UNITS/ML 10ML VIAL ONE (12:44)
[2022-05-20] MEDS ORDERED: MAGNESIUM 2GM/50ML STERILE WATER IVPB IVPB ONE (13:30)
[2022-05-20] MEDS: KETOROLAC TROMETHAMINE 30 MG/1 ML VIAL IVPUSH SCH ×2 (13:42→18:07)
[2022-05-20] MEDS: POLYETHYLENE GLYCOL (HEALTHYLAX) 3350 17 GM PACKET PO SCH (22:24)
[2022-05-20] MEDS: ATORVASTATIN CA 10 MG TABLET (FP) PO SCH (22:25)
[2022-05-20] MEDS: SENNOSIDES 8.6MG TABLET (FP) PO SCH (22:25)
[2022-05-21] MEDS: KETOROLAC TROMETHAMINE 30 MG/1 ML VIAL IVPUSH SCH ×3 (01:39→17:33)
[2022-05-21] MEDS: LACTATED RINGERS SOLUTION 1,000 ML/1,000 ML INFUS.BAG IV SCH ×2 (01:40→16:36)
[2022-05-21] MEDS: POLYETHYLENE GLYCOL (HEALTHYLAX) 3350 17 GM PACKET PO SCH ×3 (06:54→21:39)
[2022-05-21] MEDS: INSULIN SLIDING SCALE (NOVOLOG) 1 VIAL SQ SCH ×4 (06:58→21:46)
[2022-05-21] MEDS: ASPIRIN 81 MG CHEWABLE TABLETS PO SCH (09:54)
[2022-05-21] MEDS: NICOTINE 21 MG/24 HOURS TOPICAL PATCH TD SCH (09:55)
[2022-05-21] MEDS: BUDESONIDE/FORMETEROL FUMARATE 80/4.5 mcg INHALER IH SCH ×2 (09:55→21:41)
[2022-05-21] MEDS: PANTOPRAZOLE 40 MG TABLET PO SCH (09:55)
[2022-05-21] MEDS: ENOXAPARIN NA (PORCINE) 40 MG/0.4 ML DISP.SYRIN SQ SCH (09:55)
[2022-05-21] MEDS: amLODIPine BESYLATE 5 MG TABLET (FP) PO SCH (09:55)
[2022-05-21] MEDS: LOSARTAN POTASSIUM 50 MG TABLET PO SCH (09:55)
[2022-05-21 09:58] LABS: HEMATOCRIT 40.1 % (32.4-45.2); HEMOGLOBIN 13.4 GM/dL (10.7-15.3); MCH 30.6 pg (25.7-33.7); MCHC 33.3 g/dl (32.0-36.0); MEAN CELL VOLUME 91.9 fl (80-96); MEAN PLT VOLUME 9.6 fl (7.5-11.1); PLATELET COUNT 172 10^3/uL (134-434); RBC 4.37 M/mm3 (3.60-5.2); RDW 13.5 % (11.6-15.6); WHITE BLOOD COUNT 5.3 K/mm3 (4.0-10.0)
[2022-05-21 10:22] LABS: CALCIUM 9.5 mg/dL (8.5-10.1)
[2022-05-21 10:23] LABS: ALBUMIN 3.3 g/dl (3.4-5.0); BLOOD UREA NITROGEN 6.6 mg/dL (7-18); MAGNESIUM 1.8 mg/dL (1.8-2.4)
[2022-05-21 10:26] LABS: CREATININE 0.7 mg/dL (0.55-1.3)
[2022-05-21 10:27] LABS: BILIRUBIN,TOTAL 0.7 mg/dL (0.2-1)
[2022-05-21] MEDS: ATORVASTATIN CA 10 MG TABLET (FP) PO SCH (21:39)
[2022-05-21] MEDS: SENNOSIDES 8.6MG TABLET (FP) PO SCH (21:41)
[2022-05-22] MEDS: KETOROLAC TROMETHAMINE 30 MG/1 ML VIAL IVPUSH SCH ×3 (01:51→17:48)
[2022-05-22] MEDS: LACTATED RINGERS SOLUTION 1,000 ML/1,000 ML INFUS.BAG IV SCH (02:43)
[2022-05-22] MEDS: POLYETHYLENE GLYCOL (HEALTHYLAX) 3350 17 GM PACKET PO SCH ×3 (05:40→21:45)
[2022-05-22] MEDS: INSULIN SLIDING SCALE (NOVOLOG) 1 VIAL SQ SCH ×4 (06:22→21:52)
[2022-05-22] MEDS: ENOXAPARIN NA (PORCINE) 40 MG/0.4 ML DISP.SYRIN SQ SCH (09:02)
[2022-05-22] MEDS: NICOTINE 21 MG/24 HOURS TOPICAL PATCH TD SCH (09:02)
[2022-05-22] MEDS: LOSARTAN POTASSIUM 50 MG TABLET PO SCH (09:04)
[2022-05-22] MEDS: amLODIPine BESYLATE 5 MG TABLET (FP) PO SCH (09:04)
[2022-05-22] MEDS: PANTOPRAZOLE 40 MG TABLET PO SCH ×2 (09:04→21:46)
[2022-05-22] MEDS: ASPIRIN 81 MG CHEWABLE TABLETS PO SCH (09:04)
[2022-05-22] MEDS: BUDESONIDE/FORMETEROL FUMARATE 80/4.5 mcg INHALER IH SCH ×2 (09:05→21:47)
[2022-05-22 09:30] LABS: HEMATOCRIT 41.5 % (32.4-45.2); HEMOGLOBIN 13.8 GM/dL (10.7-15.3); MCH 30.8 pg (25.7-33.7); MCHC 33.1 g/dl (32.0-36.0); MEAN CELL VOLUME 92.8 fl (80-96); MEAN PLT VOLUME 9.8 fl (7.5-11.1); PLATELET COUNT 186 10^3/uL (134-434); RBC 4.47 M/mm3 (3.60-5.2); RDW 13.3 % (11.6-15.6); WHITE BLOOD COUNT 5.3 K/mm3 (4.0-10.0)
[2022-05-22 09:50] LABS: ALBUMIN 3.3 g/dl (3.4-5.0); CALCIUM 9.5 mg/dL (8.5-10.1)
[2022-05-22 09:52] LABS: BLOOD UREA NITROGEN 14.4 mg/dL (7-18)
[2022-05-22 09:55] LABS: CREATININE 0.7 mg/dL (0.55-1.3)
[2022-05-22 09:56] LABS: BILIRUBIN,TOTAL 0.5 mg/dL (0.2-1); TOT PROT 7.2 g/dl (6.4-8.2)
[2022-05-22] MEDS: FLUTICASONE PROP 0.05% 16 GM NASAL SPRAY NS SCH ×2 (11:53→21:45)
[2022-05-22] MEDS: ATORVASTATIN CA 10 MG TABLET (FP) PO SCH (21:46)
[2022-05-22] MEDS: SENNOSIDES 8.6MG TABLET (FP) PO SCH (21:47)
[2022-05-22 22:20] VITALS: RESP 20
[2022-05-23] MEDS: KETOROLAC TROMETHAMINE 30 MG/1 ML VIAL IVPUSH SCH ×2 (01:48→09:05)
[2022-05-23] MEDS: LACTATED RINGERS SOLUTION 1,000 ML/1,000 ML INFUS.BAG IV SCH (02:44)
[2022-05-23] MEDS: POLYETHYLENE GLYCOL (HEALTHYLAX) 3350 17 GM PACKET PO SCH ×2 (05:28→15:32)
[2022-05-23] MEDS: INSULIN SLIDING SCALE (NOVOLOG) 1 VIAL SQ SCH ×2 (06:47→12:06)
[2022-05-23] MEDS: ENOXAPARIN NA (PORCINE) 40 MG/0.4 ML DISP.SYRIN SQ SCH (09:04)
[2022-05-23] MEDS: LOSARTAN POTASSIUM 50 MG TABLET PO SCH (09:04)
[2022-05-23] MEDS: ASPIRIN 81 MG CHEWABLE TABLETS PO SCH (09:05)
[2022-05-23] MEDS: amLODIPine BESYLATE 5 MG TABLET (FP) PO SCH (09:05)
[2022-05-23] MEDS: PANTOPRAZOLE 40 MG TABLET PO SCH (09:05)
[2022-05-23] MEDS: FLUTICASONE PROP 0.05% 16 GM NASAL SPRAY NS SCH (10:00)
[2022-05-23] MEDS: BUDESONIDE/FORMETEROL FUMARATE 80/4.5 mcg INHALER IH SCH (10:05)
[2022-05-23] MEDS: NICOTINE 21 MG/24 HOURS TOPICAL PATCH TD SCH (12:04)
[2022-05-23 15:07] LABS: SPECKLED PATTERN >1:1280 (.)
[2022-05-23 16:03] VITALS: BP 168/92; PULSE 80; TEMP 98.6
== END 2022-05-23 16:30 | disposition home or self-care (01) | DRG 440 ==
LOC: JER 10:33 → JERBED 05-19 00:19 → J8W 05-19 12:53
PROVIDERS: ADMIT Internal Medicine; ATTEND Internal Medicine
DX: K85.90 Acute pancreatitis without necrosis or infection, unspecified (principal); I10 Essential (primary) hypertension; E78.5 Hyperlipidemia, unspecified; F17.200 Nicotine dependence, unspecified, uncomplicated; J45.909 Unspecified asthma, uncomplicated; K21.9 Gastro-esophageal reflux disease without esophagitis; E11.9 Type 2 diabetes mellitus without complications; E66.9 Obesity, unspecified; Z68.36 Body mass index [BMI] 36.0-36.9, adult; K59.00 Constipation, unspecified; E83.42 Hypomagnesemia; J44.9 Chronic obstructive pulmonary disease, unspecified; K64.9 Unspecified hemorrhoids; E87.6 Hypokalemia
CPT/HCPCS: 0241U-QW; 36415; 74177-TC; 74183-TC; 76705-TC; 80053; 80061; 81003; 82330; 82787; 82962; 83036; 83605; 83690; 83735; 83970; 84100; 84484; 85025; 85027; 85610; 86038; 86301; 87086; 93005; 93010; 99285-25; Q9967

== ENCOUNTER 2023-11-11 12:16 | Emergency (ER) | payer OTHER ==
[2023-11-11 12:24] VITALS: BP 143/70; PULSE 98; RESP 18; TEMP 97.6; BMI 40.2
[2023-11-11] MEDS ORDERED: BENZONATATE 200 MG CAPSULE PO ONE (12:49)
[2023-11-11 13:05] LABS: BASO % 0.4 % (0-2.0); EOS % 0.3 % (0-4.5); HEMATOCRIT 42.6 % (32.4-45.2); HEMOGLOBIN 14.3 GM/dL (10.7-15.3); LYMPH % 41.7 % (8-40); MCH 31.9 pg (25.7-33.7); MCHC 33.5 g/dl (32.0-36.0); MEAN CELL VOLUME 95.2 fl (80-96); MEAN PLT VOLUME 8.4 fl (7.5-11.1); MONO % 13.1 % (3.8-10.2); NEUT % 44.5 % (42.8-82.8); PLATELET COUNT 218 10^3/uL (134-434); RBC 4.48 M/mm3 (3.60-5.2); RDW 13.3 % (11.6-15.6); WHITE BLOOD COUNT 6.4 K/mm3 (4.0-10.0)
[2023-11-11] MEDS ORDERED: ALBUTEROL SO4 0.083% IH SOL 2.5 MG/3 ML VIAL.NEB. NEB ONE (13:05)
[2023-11-11] MEDS: ALBUTEROL SO4 2.5/IPRATROPIUM 0.5 INH SOL 3 ML VIAL.NEB. NEB SCH (13:17)
[2023-11-11 13:25] LABS: POTASSIUM 4.4 mmol/L (3.5-5.1)
[2023-11-11 13:28] LABS: ALBUMIN 3.7 g/dl (3.4-5.0); CALCIUM 10.1 mg/dL (8.5-10.1)
[2023-11-11 13:29] LABS: BLOOD UREA NITROGEN 16.7 mg/dL (7-18)
[2023-11-11 13:31] LABS: CREATININE 1.2 mg/dL (0.55-1.3)
[2023-11-11 13:33] LABS: BILIRUBIN,TOTAL 0.7 mg/dL (0.2-1); TOT PROT 7.6 g/dl (6.4-8.2)
[2023-11-11] MEDS: BENZONATATE 100 MG CAPSULE PO ONE (13:42)
== END 2023-11-11 14:30 | disposition home or self-care (01) ==
LOC: JER 12:16
PROC: 3E0F7GC Introduction of Other Therapeutic Substance into Respiratory Tract, Via Natural or Artificial Opening (ICD-10-PCS; principal; 2023-11-11)
DX: J45.901 Unspecified asthma with (acute) exacerbation (principal); J06.9 Acute upper respiratory infection, unspecified; R60.0 Localized edema; R05.9 Cough, unspecified; R09.89 Other specified symptoms and signs involving the circulatory and respiratory systems; Z20.822 Contact with and (suspected) exposure to COVID-19
CPT/HCPCS: 0241U-QW; 36415; 71046-TC-FY; 80053; 83880; 84484; 85025; 93005; 93010; 99285-25

== ENCOUNTER 2024-09-11 13:04 | Emergency (ER) | payer OTHER ==
[2024-09-11 13:10] VITALS: BP 142/62; PULSE 102; RESP 18; TEMP 98; BMI 38.4
[2024-09-11 15:18] LABS: URINE APPEARANCE CLEAR; URINE BILIRUBIN NEGATIVE (NEGATIVE); URINE COLOR YELLOW; URINE GLUCOSE (UA) NEGATIVE (NEGATIVE); URINE KETONE NEGATIVE (NEGATIVE); URINE LEUK ESTERASE NEGATIVE (NEGATIVE); URINE NITRITE NEGATIVE (NEGATIVE); URINE PROTEIN TRACE (NEGATIVE)
[2024-09-11 15:19] LABS: BASO % 0.5 % (0-2.0); EOS % 0.4 % (0-4.5); LYMPH % 40.2 % (8-40); MCH 31.4 pg (25.7-33.7); MCHC 33.3 g/dl (32.0-36.0); MEAN CELL VOLUME 94.3 fl (80-96); MEAN PLT VOLUME 8.2 fl (7.5-11.1); MONO % 10.6 % (3.8-10.2); NEUT % 48.3 % (42.8-82.8); PLATELET COUNT 183 10^3/uL (134-434); RBC 4.77 M/mm3 (3.60-5.2); RDW 14.7 % (11.6-15.6); WHITE BLOOD COUNT 5.7 K/mm3 (4.0-10.0)
[2024-09-11 15:25] LABS: INR 1.07 (0.83-1.09); PROTHROMBIN TIME (PATIENT) 11.7 SEC (9.7-13.0)
[2024-09-11 15:44] LABS: POTASSIUM 3.9 mmol/L (3.5-5.1)
[2024-09-11 15:45] LABS: CALCIUM 10.3 mg/dL (8.5-10.1)
[2024-09-11 15:46] LABS: ALBUMIN 3.6 g/dl (3.4-5.0); BLOOD UREA NITROGEN 11.6 mg/dL (7-18)
[2024-09-11 15:51] LABS: BILIRUBIN,TOTAL 0.7 mg/dL (0.2-1); TOT PROT 7.2 g/dl (6.4-8.2)
== END 2024-09-11 19:11 | disposition home or self-care (01) ==
LOC: JER 13:04
DX: D25.9 Leiomyoma of uterus, unspecified (principal); R31.9 Hematuria, unspecified
CPT/HCPCS: 36415; 76856-TC; 80053; 81003; 85025; 85610; 87086; 99284-25